=== PATIENT | female | born 1970 | race Caucasian/White ===

== ENCOUNTER → 2016-05-28 | Outpatient (CLI) | payer OTHER ==
[~2016-05-28] VITALS: Ht 162.6 cm; Wt 86.2 kg
[~2016-05-28] MED LIST: AMLO10TA2 PO; ASPI81TA85 PO; BENI40TA3 PO; CHLO25TA PO; CYCL5TA PO; IMOD2TAB14 PO; LEXA1TAB PO; LIDOCAINE 2% INJ 100 MG/5 ML SDV (FOR ANES.) As Ordered ONE; METO-209 PO; NS 1,000 ML IV SCH; PROPOFOL 200 MG/20 ML VIAL As Ordered ONE; PROT1TAB2 PO; SUCR1TA PO; ZANTTAB PO
--- NOTE | 2016-05-28 10:34 | ROOR ---
Patient Name: Brittney Ross Procedure Date: 05/28/2016 10:20 AM Date of : 1970 Age: 45 Room: [facility] Gender: Female Note Status: Finalized Procedure: Upper GI endoscopy Indications: Heartburn, (Improved/Resolved with current management) Providers: Fran UGARTE MD Referring MD: SYLVESTER SHEPPARD MD Requesting Provider: Medicines: Monitored Anesthesia Care Complications: No immediate complications. Procedure: Pre-Anesthesia Assessment: - The heart rate, respiratory rate, oxygen saturations, blood pressure, adequacy of pulmonary ventilation, and response to care were monitored throughout the procedure. The Endoscope was introduced through the mouth, and advanced to the second part of duodenum. The upper GI endoscopy was accomplished without difficulty. The patient tolerated the procedure well. Findings: The esophagus was normal. The stomach was normal. The examined duodenum was normal. Impression: - Normal esophagus. - Normal stomach. - Normal examined duodenum. - No specimens collected. Recommendation: - Follow an antireflux regimen. Fran Ugarte MD Fran UGARTE MD 05/28/2016 10:34:04 AM This report has been signed electronically. Number of Addenda: 0 Note Initiated On: 05/28/2016 10:20 AM Estimated Blood Loss: Estimated blood loss: none.
--- NOTE | 2016-05-28 10:51 | ROOR ---
Patient Name: Brittney Ross Procedure Date: 05/28/2016 10:21 AM Date of : 1970 Age: 45 Room: [facility] Gender: Female Note Status: Finalized Procedure: Colonoscopy Indications: Clinically significant diarrhea of unexplained origin, Exclusion of colitis, Suspected irritable bowel syndrome, Generalized abdominal pain Providers: Fran UGARTE MD Referring MD: SYLVESTER SHEPPARD MD Requesting Provider: Medicines: Monitored Anesthesia Care Complications: No immediate complications. Procedure: Pre-Anesthesia Assessment: - The heart rate, respiratory rate, oxygen saturations, blood pressure, adequacy of pulmonary ventilation, and response to care were monitored throughout the procedure. The Colonoscope was introduced through the anus and advanced to 8 cm into the ileum. The colonoscopy was performed without difficulty. The patient tolerated the procedure well. The quality of the bowel preparation was good. Findings: The perianal and digital rectal examinations were normal. (Exam: Complete, Prep: Good or Excellent.) Multiple medium-mouthed diverticula were found in the sigmoid colon. Internal hemorrhoids were found during retroflexion. The hemorrhoids were small. The exam was otherwise normal throughout the examined colon. The terminal ileum appeared normal. Biopsies for histology were taken with a cold forceps from the entire colon for evaluation of microscopic colitis. Fluid aspiration for C difficile stool testing was performed. Impression: - (Exam: Complete, Prep: Good or Excellent.) - Mild diverticulosis in the sigmoid colon. - Internal hemorrhoids. - The examined portion of the ileum was normal. - Biopsies were taken with a cold forceps from the entire colon for evaluation of microscopic colitis. - Fluid aspiration was performed. - (Irritable Bowel Syndrome/IBS suspected.) Recommendation: - Telephone endoscopist for study results in 2 weeks. - Use Bentyl (dicyclomine) 20 mg PO Q 4-6 hrs PRN 30 min AC. - (the script was sent to your pharmacy on file) Fran Ugarte MD Fran UGARTE MD 05/28/2016 10:51:19 AM This report has been signed electronically. Number of Addenda: 0 Note Initiated On: 05/28/2016 10:21 AM Estimated Blood Loss: Estimated blood loss: none.
[2016-05-28 11:15] VITALS: BP 135/96
== END ==
LOC: M OPP 09:19
PROVIDERS: ATTEND Internal Medicine Gastroenterology
DX: R19.7 Diarrhea, unspecified (principal); K57.30 Diverticulosis of large intestine without perforation or abscess without bleeding; K64.0 First degree hemorrhoids; R12 Heartburn; R63.4 Abnormal weight loss; R10.84 Generalized abdominal pain; K62.5 Hemorrhage of anus and rectum; I10 Essential (primary) hypertension; G47.30 Sleep apnea, unspecified; K21.9 Gastro-esophageal reflux disease without esophagitis; F41.9 Anxiety disorder, unspecified; F32.9 Major depressive disorder, single episode, unspecified; K25.9 Gastric ulcer, unspecified as acute or chronic, without hemorrhage or perforation; M15.9 Polyosteoarthritis, unspecified; Z79.82 Long term (current) use of aspirin; Z91.040 Latex allergy status; Z79.899 Other long term (current) drug therapy

== ENCOUNTER → 2016-12-16 | Outpatient (CLI) | payer OTHER ==
[~2016-12-16] MED LIST changes: +BENI40TA26 PO; -BENI40TA3 PO; -CYCL5TA PO; +CYCL5TAB PO; -IMOD2TAB14 PO; +IMOD2TAB16 PO; -LIDOCAINE 2% INJ 100 MG/5 ML SDV (FOR ANES.) As Ordered ONE; -METO-209 PO; +METO1TAB33 PO; -NS 1,000 ML IV SCH; -PROPOFOL 200 MG/20 ML VIAL As Ordered ONE
--- NOTE | 2016-12-16 16:07 | REP ---
WHOLE BODY BONE SCAN: Following the intravenous administration of 22 mCi of technetium 99m MDP the patient's whole body is imaged in the anterior and posterior projections. Additional oblique images of the thoracic and pelvic regions performed as well as lateral views of the calvarium and knees. I see no scintigraphic evidence of occult fracture. Arthritic uptake is seen in the shoulders, sternoclavicular joints, and left knee. Renal and bladder activity are seen. IMPRESSION: Arthritic uptake as above with no evidence of occult fracture or compelling scintigraphic evidence of osseous metastases. Signed by Tony Urbina MD 12/16/2016 05:58 P
== END ==
LOC: M RAD 10:41
PROVIDERS: ATTEND Internal Medicine Cardiovascular Disease
DX: M17.12 Unilateral primary osteoarthritis, left knee (principal); M19.011 Primary osteoarthritis, right shoulder; M19.012 Primary osteoarthritis, left shoulder; R07.89 Other chest pain

== ENCOUNTER → 2017-10-05 | Outpatient (CLI) | payer OTHER | LOC: M RAD 11:40 | DX: M79.661 Pain in right lower leg (principal) | CPT/HCPCS: 73718 ==

== ENCOUNTER 2017-12-18 15:40 | Emergency (ER) | payer OTHER ==
[2017-12-18] MEDS: ACETAMINOPH W/CODEINE #3 TAB UD PO (17:06)
[2017-12-18 17:25] LABS: BASO # 0.1 10^3/uL (0.0-0.2); BASO % 0.7 % (0.0-1.0); EOS # 0.4 10^3/uL (0.0-0.50); EOS % 4.2 % (0.0-3.0); HEMATOCRIT 43.2 % (36.0-47.0); HEMOGLOBIN 14.6 g/dl (12.0-15.5); IMMATURE GRANULOCYTE % 0.2 % (0-3.0); MEAN CORPUSCULAR HEMOGLOBIN 31.9 pg (27.0-33.0); MEAN CORPUSCULAR HGB CONC 33.8 g/dl (32.0-36.5); MEAN CORPUSCULAR VOLUME 94.3 fl (80.0-96.0); MONO # 0.7 10^3/uL (0.0-0.8); MONO % 7.7 % (0.0-5.0); NEUTROPHILS # 6.2 10^3/uL (1.8-7.7); NEUTROPHILS % 66.2 % (36.0-66.0); PLATELET COUNT, AUTOMATED 206 10^3/uL (150-450); RED BLOOD COUNT 4.58 10^6/uL (4.00-5.40); RED CELL DISTRIBUTION WIDTH 12.8 % (11.5-14.5); WHITE BLOOD COUNT 9.4 10^3/uL (4.0-10.0)
[2017-12-18 17:39] LABS: PROTHROMBIN TIME 13.3 SECONDS (12.1-14.4)
[2017-12-18 17:40] LABS: PARTIAL THROMBOPLASTIN TIME 26.6 SECONDS (25.4-37.6)
== END 2017-12-18 18:12 | disposition home or self-care (01) ==
LOC: M ED 15:40
DX: S43.101A Unspecified dislocation of right acromioclavicular joint, initial encounter (principal); X58.XXXA Exposure to other specified factors, initial encounter; Y92.89 Other specified places as the place of occurrence of the external cause; I10 Essential (primary) hypertension; F33.9 Major depressive disorder, recurrent, unspecified; Z79.899 Other long term (current) drug therapy; Z79.82 Long term (current) use of aspirin; Z91.040 Latex allergy status
CPT/HCPCS: 73030

== ENCOUNTER 2018-01-03 12:08 | Day surgery (SDC) | payer OTHER ==
[~2018-01-03 12:08] MED LIST changes: -AMLO10TA2 PO; -ASPI81TA85 PO; -BENI40TA26 PO; -CHLO25TA PO; -CYCL5TAB PO; -IMOD2TAB16 PO; -LEXA1TAB PO; +LR 1,000 ML IV; -METO1TAB33 PO; -PROT1TAB2 PO; -SUCR1TA PO; -ZANTTAB PO
[2018-01-03] MEDS ORDERED: dexameTHASONE 10 MG/1 ML VIAL PRES.FREE (J1100) (12:09)
[2018-01-03] MEDS ORDERED: EPINEPHrine INJ 1 MG/ML 1ML AMP (12:09)
[2018-01-03] MEDS ORDERED: ROPIvacaine 0.5% 30 ML INJECTION (J2795 PER 1MG) (12:09)
[2018-01-03 13:22] LABS: CONTROL LINE UCG INT CTR LINE PRESENT; URINE PREG TEST NEGATIVE (NEGATIVE)
[2018-01-03] MEDS ORDERED: SCOPOLAMINE 1MG TRANSDERMAL PATCH As Ordered (15:03)
[2018-01-03] MEDS: SCOPOLAMINE 1MG TRANSDERMAL PATCH TOP (15:06)
[2018-01-03] MEDS ORDERED: fentaNYL 100 MCG/2 ML INJECTION (J3010) As Ordered ×2 (15:14→15:42)
[2018-01-03] MEDS ORDERED: MIDAZOLAM INJ 2 MG/2 ML VIAL (J2250) As Ordered ×2 (15:14→15:42)
[2018-01-03] MEDS: MIDAZOLAM INJ 2 MG/2 ML VIAL (J2250) IV (15:16)
[2018-01-03] MEDS: fentaNYL 100 MCG/2 ML INJECTION (J3010) IV (15:16)
[2018-01-03] MEDS ORDERED: ROCURONIUM BROMIDE 50 MG/5 ML VIAL As Ordered (15:42)
[2018-01-03] MEDS ORDERED: PROPOFOL 200 MG/20 ML VIAL As Ordered (15:42)
[2018-01-03] MEDS ORDERED: LIDOCAINE 2% INJ 100 MG/5 ML SDV (FOR ANES.) As Ordered (15:42)
[2018-01-03] MEDS: ceFAZolin 1GM INJ (J0690 PER 500MG) As Ordered (16:29)
[2018-01-03] MEDS ORDERED: PHENYLephrine HCL 500 MCG/5 ML (100MCG/ML) SYRINGE (J2370) As Ordered ×2 (16:30→16:51)
[2018-01-03] MEDS ORDERED: dexameTHASONE 4 MG/ML 1ML VIAL (J1100) As Ordered (16:30)
[2018-01-03] MEDS ORDERED: ONDANSETRON 4MG/2ML VIAL (J2405) As Ordered ×2 (16:55→18:19)
[2018-01-03] MEDS ORDERED: GLYCOPYRROLATE INJ 0.2 MG/ML 2 ML VIAL As Ordered (16:55)
[2018-01-03] MEDS ORDERED: NEOSTIGMINE 10 MG/10 ML VIAL (J2710) As Ordered (16:55)
[2018-01-03] MEDS ORDERED: CALCIUM CHLORIDE 10% 1 GM/10 ML SYR As Ordered (17:22)
[2018-01-03] MEDS ORDERED: LABETALOL HCL 100 MG/20 ML VIAL As Ordered ×2 (17:46→18:30)
[2018-01-03] MEDS: ONDANSETRON 4MG/2ML VIAL (J2405) IV (18:20)
[2018-01-03] MEDS ORDERED: fentaNYL 100 MCG/2 ML INJECTION (J3010) IV (18:30)
[2018-01-03] MEDS ORDERED: MORPHINE 4 MG/ML 1ML VIAL/SYRINGE (J2270) IV (18:30)
[2018-01-03] MEDS ORDERED: PERCOCET 5MG/325MG TAB PO (18:30)
[2018-01-03] MEDS ORDERED: LR 1,000 ML IV (18:30)
[2018-01-03] MEDS ORDERED: NORCO, ANEXSIA 5/325MG TABLET (HYDROcodone/ACETAMINOPHEN) PO (18:30)
[2018-01-03] MEDS: LABETALOL HCL 100 MG/20 ML VIAL IV ×2 (18:38→18:48)
[2018-01-03] MEDS: LR 1,000 ML IV (21:00)
[2018-01-03] MEDS: NORCO, ANEXSIA 5/325MG TABLET (HYDROcodone/ACETAMINOPHEN) PO (21:21)
[2018-01-04] MEDS: ARIPiprazole 10 MG TAB PO ×2 (00:15→09:23)
[2018-01-04] MEDS: GABAPENTIN 300 MG CAP PO ×2 (00:15→09:24)
[2018-01-04] MEDS: amLODIPine 5 MG TAB PO ×2 (00:16→09:26)
[2018-01-04] MEDS: SPIRONOLACTONE 50 MG TAB PO ×2 (00:16→09:25)
[2018-01-04] MEDS: METHYLDOPA 250 MG TAB PO ×2 (00:16→09:24)
[2018-01-04] MEDS ORDERED: amLODIPine 5 MG TAB PO ×2 (00:30→09:00)
[2018-01-04] MEDS: LR 1,000 ML IV (05:35)
[2018-01-04] MEDS ORDERED: LABETALOL 200 MG TAB PO (09:00)
[2018-01-04] MEDS: METOPROLOL SUCC (TopROL XL) 100MG *XL* TAB PO (09:57)
[2018-01-04] MEDS: NORCO, ANEXSIA 5/325MG TABLET (HYDROcodone/ACETAMINOPHEN) PO (10:50)
== END 2018-01-04 11:55 | disposition home or self-care (01) ==
LOC: M SDC 12:08 → M PED 20:43
DX: S46.011A Strain of muscle(s) and tendon(s) of the rotator cuff of right shoulder, initial encounter (principal); W00.0XXA Fall on same level due to ice and snow, initial encounter; Y99.0 Civilian activity done for income or pay; I10 Essential (primary) hypertension; F41.9 Anxiety disorder, unspecified; F32.9 Major depressive disorder, single episode, unspecified; K57.32 Diverticulitis of large intestine without perforation or abscess without bleeding; K21.9 Gastro-esophageal reflux disease without esophagitis; M12.9 Arthropathy, unspecified; R06.83 Snoring; G47.33 Obstructive sleep apnea (adult) (pediatric); Z91.040 Latex allergy status; Z79.899 Other long term (current) drug therapy; Z79.82 Long term (current) use of aspirin; Y93.89 Activity, other specified; Y92.89 Other specified places as the place of occurrence of the external cause
CPT/HCPCS: 23412

== ENCOUNTER → 2018-07-25 | Outpatient (REF) ==
[~2018-07-25] MED LIST changes: +ABIL10TA9 PO; +ALBU17IN2 INH; +AMLO10TA5 PO; +ARIP5TA PO; +ASPI81TA85 PO; +BENI40TA26 PO; +CHLO25TA PO; +CYCL5TAB PO; +GABA-845 PO; +HYDR12.55 PO; +IBUP-1022 PO; +IMOD2TAB16 PO; +KLOR1CAP2 PO; +LABE10TAB PO; +LEXA1TAB PO; -LR 1,000 ML IV; +METHY25TA PO; +METO1TAB33 PO; +OMEP40CA2 PO; +PROT1TAB2 PO; +SUCR1TA PO; +SYSTSOL14 OP; +TRAM50TA2 PO; +VALS1TAB48 PO; +VENTAER IN; +VITA250L PO; +VITA500C2 PO; +XANA0.5T PO; +ZANTTAB PO
--- NOTE | 2018-07-26 03:00 | REP ---
Clinical: Right shoulder pain . Technique: Internal rotation, external rotation, and Y view. Findings: No acute fracture or dislocation. Mild cortical irregularity at the acromioclavicular joint is appreciated. Glenohumeral joint appears intact and relatively normal. Subacromial space is normal. No periarticular calcifications or loose bodies are identified. Impression: Minimal degenerative changes at the acromioclavicular joint. Electronically Signed by Andi Dumont MD 07/26/2018 02:52 A
--- NOTE | 2018-07-26 03:32 | REP ---
Clinical: Pain and disability. Technique: AP, lateral, bilateral oblique and sunrise views of the left knee. Findings: Advanced tricompartmental osteoarthritic degenerative changes include subchondral sclerosis, joint space narrowing, osteophytosis, and medial subluxation. No acute fracture. Evidence of prior tibial tuberosity repair. Findings: Advanced tricompartmental osteoarthritic degenerative changes. Electronically Signed by Andi Dumont MD 07/26/2018 03:23 A
== END ==
LOC: M SMT 13:04
PROVIDERS: ATTEND Internal Medicine
DX: Z02.89 Encounter for other administrative examinations (principal)

== ENCOUNTER → 2018-09-18 | Outpatient (CLI) | payer OTHER ==
[~2018-09-18] MED LIST changes: +ARIP1TAB6 PO; -ARIP5TA PO; -VALS1TAB48 PO; +VALS1TAB68 PO
--- NOTE | 2018-10-03 01:59 | ECWPNPC ---
PATIENT NAME: ELISE KINGSTON : 1970 GENDER: FEMALE VISIT DATE: 09/18/2018 DISCHARGE DATE: 09/18/18 0851 VISIT LOCKED DATE TIME: PHYSICIAN: JOHANN JOHNSON MD RESOURCE: JOHANN JOHNSON MD REASON FOR APPOINTMENT 1. NON WC CHRONIC BACK PAIN HISTORY OF PRESENT ILLNESS PAIN SCREENING: PATIENT HAS A COMPLAINT OF ACUTE OR CHRONIC PAIN :YES 48 YEAR OLD FEMALE PATIENT WITH A HISTORY OF CHRONIC LOW BACK AND LEG PAIN. THE PATIENT DESCRIBES THE PAIN ACHING, SORE, BURNING, AND CONTINUOUS WITH A PAIN SCORE OF 7-10/10 DEPENDING ON PHYSICAL ACTIVITY. THE PATIENT SAYS SHE IS EXPERIENCING PAIN IN MULTIPLE AREAS OF HER BODY BUT MAINLY IN HER LOW BACK AND LEFT LEG. THE PATIENT SAYS SHE NEEDS TO USE A CANE TO HELP WALK BECAUSE OF THE PAIN. THE PATIENT STATES SHE IS TAKING TRAMADOL AND GABAPENTIN TO AID IN PAIN RELIEF. THE PATIENT SAYS SHE HAS DIFFICULTY SLEEPING DUE TO THIS PAIN. PATIENT DENIES UNEXPLAINABLE WEIGHT LOSS, FEVER, CHILLS, NEW CHANGES ON HER URINARY OR BOWEL CONTROL. FALL RISK SCREENING: SCREENING :NO FALLS REPORTED IN THE LAST YEAR CURRENT MEDICATIONS TAKING PRAZOSIN HCL 2 MG CAPSULE 1 CAPSULE AT BEDTIME ORALLY ONCE A DAY TAKING OMEPRAZOLE 40 MG CAPSULE DELAYED RELEASE 1 CAPSULE ORALLY ONCE A DAY TAKING ALPRAZOLAM 0.5 MG TABLET 1 TABLET ORALLY MDD2 TWICE A DAY TAKING ARIPIPRAZOLE 5 MG TABLET 1 TABLET ORALLY TWICE A DAY TAKING GABAPENTIN 300 MG CAPSULE 1 CAPSULE ORALLY TWICE A DAY TAKING BACLOFEN 10 MG TABLET 1 TABLET WITH FOOD OR MILK ORALLY TWICE A DAY NEEDED TAKING ASPIRIN 81 MG TABLET CHEWABLE 1 TABLET ORALLY ONCE A DAY TAKING TRAMADOL HCL 50 MG TABLET 1 TABLET NEEDED ORALLY EVERY 4-6 HRS TAKING VITAMIN C 500 MG CAPSULE 1 CAP ORALLY DAILY TAKING VENTOLIN HFA 108 (90 BASE) MCG/ACT AEROSOL SOLUTION 2 PUFFS NEEDED INHALATION EVERY 6 HRS TAKING VITAMIN B-12 500 MCG TABLET 1 TABLET ORALLY ONCE A DAY TAKING SYSTANE 0.4-0.3 % SOLUTION 1 DROP EACH EYE OPHTHALMIC DAILY NEEDED TAKING VALSARTAN 160 MG TABLET 1 TABLET ORALLY TWICE A DAY TAKING BUSPAR 10 MGS 1 TAB ORALLY TWICE DAILY TAKING HYDRALAZINE HCL 50 MG TABLET 1 TABLET WITH FOOD ORALLY THREE TIMES A DAY TAKING ABILIFY 5 MG TABLET 1 TABLET ORALLY ONCE A DAY TAKING RANITIDINE 150 MAX STRENGTH 150 MG TABLET 1 TABLET AT BEDTIME ORALLY TWICE DAILY TAKING HYDROCHLOROTHIAZIDE 12.5 MG CAPSULE 1 CAPSULE IN THE MORNING ORALLY ONCE A DAY TAKING LABETALOL HCL 200 MG TABLET 1 TABLET ORALLY TWICE A DAY TAKING LOTEMAX 0.5 % OINTMENT 1 APPLICATION OPHTHALMIC FOUR TIMES DAILY NEEDED TAKING NORVASC 5 MG TABLET 1 TABLET ORALLY BID TAKING ANT MAG ZINC +D3 - TABLET (NO VIT D) DIRECTED ORALLY DAILY TAKING XARELTO 15 MG TABLET 1 TABLET WITH FOOD ORALLY ONCE A DAY NOT-TAKING NAPROXEN 500 MG TABLET DELAYED RELEASE 1 TABLET ORALLY TWICE A DAY NOT-TAKING KLOR-CON 10 10 MEQ TABLET EXTENDED RELEASE 1 TABLET WITH FOOD ORALLY TWICE A DAY NOT-TAKING METOPROLOL SUCCINATE ER 100 MG TABLET EXTENDED RELEASE 24 HOUR 1 TABLET ORALLY ONCE A DAY MEDICATION LIST REVIEWED AND RECONCILED WITH THE PATIENT PAST MEDICAL HISTORY ANGINA IRREGULAR HEART BEAT 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 OLDEST [id number] PROBLEMS.YOUNGEST BROTHER FROM LOGGING ACCIDENT. SOCIAL HISTORY GENERAL: TOBACCO USE ARE YOU A:NONSMOKER EDUCATION LEVEL OF EDUCATION:HIGH SCHOOL DIET: REGULAR. LANGUAGE LANGUAGES SPOKEN:[place] DOMESTIC VIOLENCE DO YOU FEEL SAFE IN YOUR ENVIRONMENT?YES NEW PATIENT PAIN DIARY PATIENT DESCRIBES PAIN :ACHING, BURNING, HAVE IT ALL THE TIME, SHARP, STABBING, TENDER, SORE, SHOOTING FROM 0-10, WHAT LEVEL IS YOUR PAIN TODAY?10 RECREATIONAL DRUG USE DRUG USE?NO EXERCISE: NONE. LEARNING BARRIERS / SPECIAL NEEDS BARRIERS TO LEARNING?NO HEARING IMPAIRED?NO VISION IMPAIRED?YES :CORRECTIVE LENSES COGNITIVELY IMPAIRED?NO READINESS TO LEARN?YES LEARNING PREFERENCES?NO LEARNING CAPABILITIES PRESENT?YES EMOTIONAL BARRIERS?NO SPECIAL DEVICES?YES :CANE SHADE BANDER NEEDED?NO PAIN CLINIC PFS, CLERGY, PUBLIC HEALTH REFERRALS PFS REFERRAL NEEDED?NO CLERGY REFERRAL NEEDED?NO PUBLIC HEALTH REFERRAL NEEDED?NO WAS THE PROVIDER NOTIFIED OF ANY PERTINENT INFO? N/A HAS THE PATIENT BEEN EDUCATED REGARDING HIS/HER PLAN OF CARE?YES HAS THE PATIENT BEEN EDUCATED REGARDING PAIN, THE RISK FOR PAIN, THE IMPORTANCE OF EFFECTIVE PAIN MANAGEMENT, AND THE PAIN ASSESSMENT PROCESS?YES LATEX QUESTIONNAIRE LATEX ALLERGY : HAVE YOU EVER DEVELOPED ANY TYPE OF REACTION AFTER HANDLING LATEX PRODUCTS SUCH RUBBER GLOVES, CONDOMS, DIAPHRAGMS, BALLOONS, SOCKS, OR UNDERWEAR?YES - PLEASE INDICATE :RUBBER GLOVES, OTHER (DOCUMENT IN NOTES) LATEX ALLERGY LATEX ALLERGY : HAVE YOU EVER DEVELOPED ANY TYPE OF REACTION DURING OR AFTER DENTAL APPOINTMENT, VAGINAL/RECTAL EXAMINATION, SURGICAL PROCEDURE, OR ANY OTHER EXPOSURE?NO LATEX RISK : HAVE YOU EVER HAD ANY DIFFICULTY BREATHING OR HIVES AFTER EATING OR HANDLING ANY FRUITS, OR VEGETABLES; SUCH KIWI, BANANAS, STONE FRUITS, OR CHESTNUTSNO LATEX RISK : DO YOU HAVE A PREVIOUS PERSONAL HISTORY OF MORE THAN NINE SURGERIES, SPINA BIFIDA, OR REPEATED CATHERTIZATIONS? 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 ALCOHOL SCREENING DID YOU HAVE A DRINK CONTAINING ALCOHOL IN THE PAST YEAR?YES HOW OFTEN DID YOU HAVE A DRINK CONTAINING ALCOHOL IN THE PAST YEAR?MONTHLY OR LESS (1 POINT) HOW MANY DRINKS DID YOU HAVE ON A TYPICAL DAY WHEN YOU WERE DRINKING IN THE PAST YEAR?3 OR 4 (1 POINT) HOW OFTEN DID YOU HAVE SIX OR MORE DRINKS ON ONE OCCASION IN THE PAST YEAR?NEVER (0 POINTS) POINTS2 INTERPRETATIONNEGATIVE OCCUPATION: DISABLED. HOSPITALIZATION/MAJOR DIAGNOSTIC PROCEDURE SHOULDER SURGERY 08/2017,12/2017 PULMONARY EMBOLISM 02/2019 CHILDBIRTH REVIEW OF SYSTEMS REVIEWED BY: PROVIDER: JOHANN JOHNSON MD . CONSTITUTIONAL: ANY CHANGE IN YOUR MEDICAL CONDITION? NO . CHILLS NO . FEVER NO . INFECTION: DO YOU HAVE NEW INFECTIONS? NO . DO YOU HAVE HISTORY OF MRSA? NO . MUSCULOSKELETAL: ANY NEW PATTERNS OF PAIN OR NUMBNESS? YES, PAIN HAS INCREASED IN BACK, LEFT LEG FROM KNEE DOWN-HAS BEEN GETTING PROGRESSIVELY WORSE OVER THE PAST 4 MONTHS . SYTEMIC LUPUS NO . GASTROENTEROLOGY: ANY NEW CHANGE IN BOWEL CONTROL? NO . BARRETTS ESOPHAGUS NO . CIRRHOSIS NO . HEPATITIS NO . LIVER FAILURE NO . ACID REFLUX YES . UNEXPLAINED WEIGHT LOSS NO . GENITOURINARY: ANY NEW CHANGE IN BLADDER CONTROL? NO . IS THERE A CHANCE YOU COULD BE ? NO . HEMATOLOGY/LYMPH: DO YOU TAKE ANY BLOOD THINNERS? (FOR EXAMPLE- COUMADIN, PLAVIX, AGGRENOX, PLATEL, PRADAXA, OR XARELTO) YES, XARELTO . WHEN WAS YOUR LAST DOSE? DATE: TIME:09/18/18 1000 . LOW PLATELET COUNT NO . SICKLE CELL DISEASE NO . VON WILLIEBRANDS NO . FACTOR V LEIDEN NO . THALLASEMIA NO . ANEMIA YES, YEARS AGO . EASY BRUISING NO . NEUROLOGY: HAVE YOU FALLEN IN THE PAST 12 MONTHS? YES, STATES SHE FALLS OFTEN. STATES SHE LOSES HER BALANCE. NO INJURY IN THE PAST YEAR. . ANY NEW EXTREMITY NUMBNESS OR WEAKNESS? YES, LEFT TOES AND FOOT ARE NUMB AND ENTIRE LEG IS WEAK . HEAD INJURY NO . DEMENTIA NO . CEREBRAL PALSY NO . MULTIPLE SCLEROSIS NO . DIZZINESS INTERMITTENT . HEADACHE OCCASSIONAL MIGRAINES ON LEFT SIDE . STROKES NO . VERTIGO NO . CARDIOLOGY: DO YOU HAVE A PACEMAKER OR DEFIBRILLATOR? NO . ANGINA YES . HEART ATTACK NO . HEART SURGERY NO . CONGESTIVE HEART FAILURE/FLUID OVERLOAD NO . CHEST PAIN "ONCE IN A GREAT WHILE" . HIGH BLOOD PRESSURE ON MEDICATION(S) . IRREGULAR HEART BEAT POUNDING IN CHEST, AT REST, SKIPPED HEART BEAT, FEELS HEART RACINGOCCASIONALLY, WITH EXERTION HX OF PULMONARY EMBOLISM . RESPIRATORY: HAVE YOU BEEN SICK IN THE PAST WEEK? NO . FEVER NO . FLU LIKE SYMPTOMS? NO . CPAP NO . BYPAP NO . ASTHMA YES . EMPHYSEMA NO . CHRONIC LUNG DISEASES NO . SHORTNESS OF BREATH ON EXERTION YES . COUGH NO . SNORING YES HAS DAKOTAH BUT CAN NOT TOLERATE CPAP . INTEGUMENTARY: DO YOU HAVE ANY RASHES OR OPEN SORES? NO . ALLERGIC/IMMUNO: ARE YOU ALLERGIC TO IV DYE? NO . ANY NEW ALLERGIES? NO . PSYCHIATRIC: DO YOU HAVE THOUGHTS OF HURTING YOURSELF OR SOMEONE ELSE? NO . ARE YOU ABUSED, NEGLECTED, OR IN AN UNSAFE ENVIRONMENT? NO . ENDOCRINOLOGY: ARE YOU DIABETIC? NO . THYROID DISORDER NO . OTHER: DO YOU NEED ANY PRESCRIPTIONS? NO . IF YES, PLEASE LIST: ____ . ANY NEW PROBLEMS WITH YOUR MEDICATIONS? NO . WHEN DID YOU LAST EAT? ____ . WHEN DID YOU LAST DRINK? ____ . WHAT DID YOU LAST DRINK? ____ . NAME OF PERSON DRIVING YOU HOME? ____ . DO YOU HAVE ANY OTHER QUESTIONS OR CONCERNS YES, NEEDS SOMETHING THAT HELPS HER PAIN. "ALWAYS IN PAIN, WILL IT GET BETTER." . VITAL SIGNS WT 209.4 LBS, HT 64 IN, BMI 35.94 INDEX, BP 193/124 MM HG, REPEAT BP 190/130(R) 200/134(L)MANUAL BOTH, HR 83 /MIN, RR 18 /MIN, TEMP 97.2 F, OXYGEN SAT % 97%, NA INITIALS SC 1603, REVIEWED BY: ADRN IS AWARE OF PT'S BP AND WILL DO A MANUAL.DR. JOHNSON AWARE OF ELEVATED B/P. PT. ADVISED TO F/U WITH DR. ENRIQUE. EXAMINATION GENERAL EXAMINATION: PATIENT IS ALERT O X 3 AND COOPERATIVE. LUNGS CLEAR, TO AUSCULTATION. HEART: NO MURMURS OR GALLOPS; FACIAL CRANIAL NERVES ARE GROSSLY NORMAL. GOOD SYMMETRY OF FACIAL MUSCLE MOVEMENT. NORMAL VISUAL BROWN. ANTALGIC GAIT. PATIENT IS LIMPING FROM HER LEFT LEG. LEFT LEG IS WEAKER AT EXTENSION AND FLEXION. SEVERE TENDERNESS IN LOW BACK AREA. PRESENCE OF BANDS OF TISSUE AND TRIGGER POINTS WITH RESTRICTION OF MOVEMENT OF THE LOW BACK. CT SCAN OF THE LUMBAR SPINE DONE ON 04/26/2018 SHOWS DEGENERATIVE DISC DISEASE, BULGING DISCS, AND FACET ARTHROPATHY CHANGES. ASSESSMENTS INTERVERTEBRAL DISC DISORDER WITH RADICULOPATHY OF LUMBAR REGION - M51.16 (PRIMARY) TREATMENT INTERVERTEBRAL DISC DISORDER WITH RADICULOPATHY OF LUMBAR REGION CLINICAL NOTES: WE DISCUSSED SEVERAL ISSUES WITH MS. KINGSTON'S PAIN MANAGEMENT CASE. I BELIEVE THE PATIENT WILL BENEFIT FROM A LUMBAR EPIDURAL STEROID INJECTION, BUT BEFORE WE CAN MOVE FORWARD WITH THE EPIDURAL, I WILL NEED A CLEARANCE FROM THE PRIMARY CARE PHYSICIAN FOR THE PATIENT TO STOP XARELTO. IF CLEARANCE CANNOT BE OBTAINED, THE PATIENT WILL CONSIDER TRIGGER POINT INJECTIONS. I WOULD ALSO LIKE TO GET A COPY OF THE PATIENT'S LUMBAR MRI DONE AT [facility]. I WILL INCREASE THE PATIENT'S GABAPENTIN TO 3 TABLETS PER DAY. I WOULD ALSO LIKE TO DISCUSS WITH THE PATIENT'S PRIMARY CARE PHYSICIAN ABOUT THE PATIENT'S HIGH BLOOD PRESSURE THAT WAS RECORDED TODAY. THE PATIENT SAID SHE TAKES XANAX AND DENIES ANY VISION TROUBLE, DIZZINESS, AND SEVERE HEADACHES. THE PATIENT WAS ADVISED IF SHE EXPERIENCES ANY OF THESE SYMPTOMS TO GO TO THE EMERGENCY ROOM TO RECEIVE CARE. THE PATIENT WILL FOLLOW UP IN THE NEXT FEW WEEKS. INSTRUCTIONS WERE GIVEN, QUESTIONS WERE ANSWERED, PATIENT REPORTS UNDERSTANDING AND AGREES WITH THE PLAN. I, MITALI DAY, DOCUMENTED THE ABOVE INFORMATION ACTING A SCRIBE FOR DR. JOHNSON. I HAVE REVIEWED THE ABOVE DOCUMENT, WRITTEN BY MITALI ABARCA AND I VERIFY THAT IT IS ACCURATE. DEAR DR. KARISHMA ENRIQUE: THANK YOU FOR YOUR KIND REFERRAL OF ELISE KINGSTON. IF YOU WANT TO DISCUSS HER CASE WITH ME PLEASE CALL ME AT THE PAIN CENTER AT [phone]. SINCERELY, JOHANN JOHNSON MD PAIN MEDICINE . OTHERS REFILL GABAPENTIN CAPSULE, 300 MG, 1 CAPSULE, ORALLY FOR PAIN, THREE TIMES A DAY, 30 DAYS, 90 CAPSULE, REFILLS 1 PROCEDURE CODES FA211 ESTABILISHED PATIENT [facility] FACILITY CHARGE G8427 CURRENT MEDS W/DOSAGES DOCUMENTED G8730 PAIN ASSESS POS TOOL F/U PLAN DOC DISPOSITION & COMMUNICATION FOLLOW UP 3 WEEKS ELECTRONICALLY SIGNED BY JOHANN JOHNSON MD, MD ON 10/02/2018 AT 04:57 PM EDT DISCLAIMER : THIS IS A VISIT SUMMARY EXTRACTED FROM THE [employer] CHART. IT IS NOT A COPY OF THE [employer] PROGRESS NOTE. MTDD
== END ==
LOC: M PAIN 16:15
PROVIDERS: ATTEND Anesthesiology
DX: M51.16 Intervertebral disc disorders with radiculopathy, lumbar region (principal); G89.29 Other chronic pain; I10 Essential (primary) hypertension; G47.33 Obstructive sleep apnea (adult) (pediatric); J45.909 Unspecified asthma, uncomplicated; M19.90 Unspecified osteoarthritis, unspecified site; K21.9 Gastro-esophageal reflux disease without esophagitis; G43.909 Migraine, unspecified, not intractable, without status migrainosus; I20.9 Angina pectoris, unspecified; Z79.01 Long term (current) use of anticoagulants; Z79.82 Long term (current) use of aspirin; Z79.899 Other long term (current) drug therapy; Z91.040 Latex allergy status; Z86.79 Personal history of other diseases of the circulatory system; Z86.711 Personal history of pulmonary embolism

== ENCOUNTER → 2018-12-01 | Outpatient (CLI) | payer OTHER ==
[~2018-12-01] MED LIST changes: +ZANT150T40 PO; -ZANTTAB PO
--- NOTE | 2018-12-07 00:36 | ECWPNPC ---
PATIENT NAME: ELISE KINGSTON : 1970 GENDER: FEMALE VISIT DATE: 12/01/2018 DISCHARGE DATE: 12/01/18 1107 VISIT LOCKED DATE TIME: PHYSICIAN: LICHA ARENAS RESOURCE: LICHA ARENAS REASON FOR APPOINTMENT 1. NON WC CHRONIC BACK PAIN HISTORY OF PRESENT ILLNESS HISTORY OF PRESENT ILLNESS: 48 YEAR OLD FEMALE IN FOR CHRONIC LOW BACK AND LEFT LEG PAIN. SHE RATES HER PAIN AT A 10/10. SHE DOES ADMIT THAT SHE FELT THE INCREASE IN GABAPENTIN WAS HELPFUL. DR. JOHNSON DID DISCUSS PROCEDURES WITH HER AT LAST VISIT BUT HAD STATED AT THAT TIME HER PCP WOULD HAVE TO AGREE TO D/C HER XARELTO. SINCE LAST APPT PATIENT HAD D/C'D USE OF XARELTO. SHE DESCRIBES THE PAIN ACHING, BURNING, SORE, TENDER, SHARP, STABBING, AND SHOOTING. PAIN THE PATIENT DESCRIBES THE PAIN... FALL RISK SCREENING: SCREENING :NO FALLS REPORTED IN THE LAST YEAR CURRENT MEDICATIONS TAKING PRAZOSIN HCL 2 MG CAPSULE 1 CAPSULE AT BEDTIME ORALLY ONCE A DAY TAKING OMEPRAZOLE 40 MG CAPSULE DELAYED RELEASE 1 CAPSULE ORALLY ONCE A DAY TAKING ALPRAZOLAM 0.5 MG TABLET 1 TABLET ORALLY MDD2 TWICE A DAY TAKING BACLOFEN 10 MG TABLET 1 TABLET WITH FOOD OR MILK ORALLY TWICE A DAY NEEDED TAKING ASPIRIN 81 MG TABLET CHEWABLE 1 TABLET ORALLY ONCE A DAY TAKING TRAMADOL HCL 50 MG TABLET 1 TABLET NEEDED ORALLY EVERY 4-6 HRS TAKING VITAMIN C 500 MG CAPSULE 1 CAP ORALLY DAILY TAKING VENTOLIN HFA 108 (90 BASE) MCG/ACT AEROSOL SOLUTION 2 PUFFS NEEDED INHALATION EVERY 6 HRS TAKING VITAMIN B-12 500 MCG TABLET 1 TABLET ORALLY ONCE A DAY TAKING SYSTANE 0.4-0.3 % SOLUTION 1 DROP EACH EYE OPHTHALMIC DAILY NEEDED TAKING VALSARTAN 160 MG TABLET 1 TABLET ORALLY TWICE A DAY TAKING BUSPAR 10 MGS 1 TAB ORALLY TWICE DAILY TAKING HYDRALAZINE HCL 50 MG TABLET 1 TABLET WITH FOOD ORALLY THREE TIMES A DAY TAKING ABILIFY 5 MG TABLET 1 TABLET ORALLY ONCE A DAY TAKING RANITIDINE 150 MAX STRENGTH 150 MG TABLET 1 TAB ORALLY TWICE DAILY TAKING HYDROCHLOROTHIAZIDE 12.5 MG CAPSULE 1 CAPSULE IN THE MORNING ORALLY ONCE A DAY TAKING LABETALOL HCL 200 MG TABLET 1 TABLET ORALLY TWICE A DAY TAKING LOTEMAX 0.5 % OINTMENT 1 APPLICATION OPHTHALMIC FOUR TIMES DAILY NEEDED TAKING ANT MAG ZINC +D3 - TABLET (NO VIT D) DIRECTED ORALLY DAILY TAKING GABAPENTIN 300 MG CAPSULE 1 CAPSULE ORALLY FOR PAIN THREE TIMES A DAY NOT-TAKING XARELTO 15 MG TABLET 1 TABLET WITH FOOD ORALLY ONCE A DAY NOT-TAKING ARIPIPRAZOLE 5 MG TABLET 1 TABLET ORALLY TWICE A DAY NOT-TAKING NORVASC 5 MG TABLET 1 TABLET ORALLY BID NOT-TAKING NAPROXEN 500 MG TABLET DELAYED RELEASE 1 TABLET ORALLY TWICE A DAY NOT-TAKING KLOR-CON 10 10 MEQ TABLET EXTENDED RELEASE 1 TABLET WITH FOOD ORALLY TWICE A DAY NOT-TAKING METOPROLOL SUCCINATE ER 100 MG TABLET EXTENDED RELEASE 24 HOUR 1 TABLET ORALLY ONCE A DAY MEDICATION LIST REVIEWED AND RECONCILED WITH THE PATIENT PAST MEDICAL HISTORY ANGINA IRREGULAR HEART BEAT PULMONARY 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 HYPERTENSION DAKOTAH-UNABLE TO TOLERATE CPAP ASTHMA BACK AND LEFT LEG PAIN ARTHRITIS GERD SEVERE NOSE BLEED ALLERGIES LATEX (FOR ALLERGY USE ONLY): DIFFICULTY BREATHING, ITCHING - ALLERGY ENVIRONMENTAL: SINUS CONGESTION, COUGH - ALLERGY SURGICAL HISTORY RIGHT ROTATOR CUFF REPAIR 08/2017, 12/2017 ARTHROSCOPY BILARTERAL KNEES SCREWS LEFT KNEE 2007 CHOLECYSTECTOMY 2009 TEAR DUCT OPENED A BABY LEFT CARPAL TUNNEL REPAIR 2007 TONSILLECTOMY AGE 12 D&C X 4 FAMILY HISTORY FATHER: NO KNOWN HISTORY ON FATHER MOTHER: ALIVE, DIAGNOSED WITH HYPERTENSION SIBLINGS: 1DAUGHTER(S) - HEALTHY. OLDEST [id number] PROBLEMS.YOUNGEST BROTHER FROM LOGGING ACCIDENT. SOCIAL HISTORY GENERAL: TOBACCO USE ARE YOU A:NONSMOKER EDUCATION LEVEL OF EDUCATION:HIGH SCHOOL DIET: REGULAR. LANGUAGE LANGUAGES SPOKEN:THAI DOMESTIC VIOLENCE DO YOU FEEL SAFE IN YOUR ENVIRONMENT?YES NEW PATIENT PAIN DIARY PATIENT DESCRIBES PAIN : ACHING, BURNING, HAVE IT ALL THE TIME, SHARP, STABBING, TENDER, SORE, SHOOTING, FROM 0-10, WHAT LEVEL IS YOUR PAIN TODAY? 10. RECREATIONAL DRUG USE DRUG USE?NO EXERCISE: NONE. LEARNING BARRIERS / SPECIAL NEEDS BARRIERS TO LEARNING?NO HEARING IMPAIRED?NO VISION IMPAIRED?YES :CORRECTIVE LENSES COGNITIVELY IMPAIRED?NO READINESS TO LEARN?YES LEARNING PREFERENCES?NO LEARNING CAPABILITIES PRESENT?YES EMOTIONAL BARRIERS?NO SPECIAL DEVICES?YES :CANE MANAGER LINE NEEDED?NO PAIN CLINIC PFS, CLERGY, PUBLIC HEALTH REFERRALS PFS REFERRAL NEEDED?NO CLERGY REFERRAL NEEDED?NO PUBLIC HEALTH REFERRAL NEEDED?NO WAS THE PROVIDER NOTIFIED OF ANY PERTINENT INFO? N/A HAS THE PATIENT BEEN EDUCATED REGARDING HIS/HER PLAN OF CARE?YES HAS THE PATIENT BEEN EDUCATED REGARDING PAIN, THE RISK FOR PAIN, THE IMPORTANCE OF EFFECTIVE PAIN MANAGEMENT, AND THE PAIN ASSESSMENT PROCESS?YES LATEX QUESTIONNAIRE LATEX ALLERGY : HAVE YOU EVER DEVELOPED ANY TYPE OF REACTION AFTER HANDLING LATEX PRODUCTS SUCH RUBBER GLOVES, CONDOMS, DIAPHRAGMS, BALLOONS, SOCKS, OR UNDERWEAR?YES - PLEASE INDICATE :RUBBER GLOVES, OTHER (DOCUMENT IN NOTES) LATEX ALLERGY LATEX ALLERGY : HAVE YOU EVER DEVELOPED ANY TYPE OF REACTION DURING OR AFTER DENTAL APPOINTMENT, VAGINAL/RECTAL EXAMINATION, SURGICAL PROCEDURE, OR ANY OTHER EXPOSURE?NO LATEX RISK : HAVE YOU EVER HAD ANY DIFFICULTY BREATHING OR HIVES AFTER EATING OR HANDLING ANY FRUITS, OR VEGETABLES; SUCH KIWI, BANANAS, STONE FRUITS, OR CHESTNUTSNO LATEX RISK : DO YOU HAVE A PREVIOUS PERSONAL HISTORY OF MORE THAN NINE SURGERIES, SPINA BIFIDA, OR REPEATED CATHERTIZATIONS? YES - PLEASE INDICATE : > 9 SURGERIES LATEX RISK : ARE YOU FREQUENTLY EXPOSED TO LATEX PRODUCTS IN YOUR OCCUPATION?NO DATE ASKED : 12/01/2018 ADVANCE DIRECTIVE ADVANCE DIRECTIVE DISCUSSED WITH PATIENT:YES 12/01/18 [id number] ALittle KINGSTON [phone] ADVENT[facility] [id number] MOSQUE MARITAL STATUS: SINGLE. ALCOHOL SCREENING DID YOU HAVE A DRINK CONTAINING ALCOHOL IN THE PAST YEAR?YES HOW OFTEN DID YOU HAVE SIX OR MORE DRINKS ON ONE OCCASION IN THE PAST YEAR?NEVER (0 POINTS) HOW MANY DRINKS DID YOU HAVE ON A TYPICAL DAY WHEN YOU WERE DRINKING IN THE PAST YEAR?3 OR 4 (1 POINT) HOW OFTEN DID YOU HAVE A DRINK CONTAINING ALCOHOL IN THE PAST YEAR?MONTHLY OR LESS (1 POINT) POINTS2 INTERPRETATIONNEGATIVE OCCUPATION: DISABLED. HOSPITALIZATION/MAJOR DIAGNOSTIC PROCEDURE SHOULDER SURGERY 08/2017,12/2017 PULMONARY EMBOLISM 02/2019 CHILDBIRTH SEVERE NOSE BLEED 10/13- REVIEW OF SYSTEMS REVIEWED BY: PROVIDER: LYNN KAUR . CONSTITUTIONAL: ANY CHANGE IN YOUR MEDICAL CONDITION? YES,WAS HOSPITALIZED FOR 4 DAYS OVER MEMORIAL DAY DUE TO SEVER NOSE BLEED . CHILLS NO . FEVER NO . INFECTION: DO YOU HAVE NEW INFECTIONS? NO . DO YOU HAVE HISTORY OF MRSA? NO . MUSCULOSKELETAL: ANY NEW PATTERNS OF PAIN OR NUMBNESS? YES, PAIN IN LOW BACK AND LEFT LOWER CALF HAS BEEN WORSE SINCE HER LAST VISIT . GASTROENTEROLOGY: ANY NEW CHANGE IN BOWEL CONTROL? NO . GENITOURINARY: ANY NEW CHANGE IN BLADDER CONTROL? NO . IS THERE A CHANCE YOU COULD BE ? NO . HEMATOLOGY/LYMPH: DO YOU TAKE ANY BLOOD THINNERS? (FOR EXAMPLE- COUMADIN, PLAVIX, AGGRENOX, PLATEL, PRADAXA, OR XARELTO) NO . WHEN WAS YOUR LAST DOSE? DATE: TIME: . NEUROLOGY: HAVE YOU FALLEN IN THE PAST 12 MONTHS? NO . ANY NEW EXTREMITY NUMBNESS OR WEAKNESS? YES, LEFT LEG VERY WEAK, LOSES HER BALANCE OFTEN . CARDIOLOGY: DO YOU HAVE A PACEMAKER OR DEFIBRILLATOR? NO . RESPIRATORY: HAVE YOU BEEN SICK IN THE PAST WEEK? NO . FEVER NO . FLU LIKE SYMPTOMS? NO . COUGH YES, NON-PRODUCTIVE, STATES IT'S DUE TO HER ALLERGIES . INTEGUMENTARY: DO YOU HAVE ANY RASHES OR OPEN SORES? NO . ALLERGIC/IMMUNO: ARE YOU ALLERGIC TO IV DYE? NO . ANY NEW ALLERGIES? NO . PSYCHIATRIC: DO YOU HAVE THOUGHTS OF HURTING YOURSELF OR SOMEONE ELSE? NO . ARE YOU ABUSED, NEGLECTED, OR IN AN UNSAFE ENVIRONMENT? NO . ENDOCRINOLOGY: ARE YOU DIABETIC? NO . OTHER: DO YOU NEED ANY PRESCRIPTIONS? YES . IF YES, PLEASE LIST: SOME THING FOR PAIN . ANY NEW PROBLEMS WITH YOUR MEDICATIONS? NO . WHEN DID YOU LAST EAT? ____ . WHEN DID YOU LAST DRINK? ____ . WHAT DID YOU LAST DRINK? ____ . NAME OF PERSON DRIVING YOU HOME? ____ . DO YOU HAVE ANY OTHER QUESTIONS OR CONCERNS NO . VITAL SIGNS WT 205.4 LBS, HT 64 IN, BMI 35.25 INDEX, BP 193/125 MM HG, REPEAT BP 174/124 MANUAL RIGHT, HR 88 /MIN, RR 16 /MIN, TEMP 97.8 F, OXYGEN SAT % 97, REVIEWED BY: MATT 37430/05/10 LICHA AWARE OF ELEVATED B/P PT. STATES SHE HAS NOT HAD B/P MED THIS A.M., PT ADVISED TO FOLLOW UP WITH PCP REGARDING ELEVATED B/P. SHE STATES IT IS ALWAYS ELEVATED WHEN SHE GOES TO THE DOC'S. EXAMINATION GENERAL EXAMINATION: GENERALNO ACUTE DISTRESS, WELL NOURISHED AND HYDRATED. PSYCHAPPROPRIATE MOOD AND AFFECT . LUNGS:CLEAR TO AUSCULTATION BILATERALLY, NO WHEEZES, RHONCHI, RALES. HEART:NO MURMURS, REGULAR RATE AND RHYTHM. BACK:POINT TENDER ALONG THORACIC SPINE, WITH A POSITIVE MODIFIED SLR ON THE LEFT SIDE.. MUSCULOSKELETAL:EQUAL STRENGTH BILATERAL LOWER EXTREMITIES.. ASSESSMENTS INTERVERTEBRAL DISC DISORDER WITH RADICULOPATHY OF LUMBAR REGION - M51.16 (PRIMARY) TREATMENT INTERVERTEBRAL DISC DISORDER WITH RADICULOPATHY OF LUMBAR REGION NOTES: LESI L1-L2, L2-L3. CLINICAL NOTES: 48 YEAR OLD FEMALE IN FOR CHRONIC PAIN FOLLOW UP. GIVEN PRESENTING SYMPTOMS AND RESULTS OF PHYSICAL EXAMINATION RECOMMENDED LESI L1-L2, L2-L3 AND INCREASING GABAPENTIN. PATIENT HAS EXPRESSED UNDERSTANDING OF AND WAS IN AGREEMENT WITH TX PLAN. GIVEN TIME TO ASK QUESTIONS AND EXPRESS CONCERNS. ENCOURAGED TO CALL SHOULD SHE HAVE ANY QUESTIONS.. OTHERS INCREASE GABAPENTIN CAPSULE, 300 MG, 1 TAB IN THE MORNING AND AFTERNOON AND 2 AT BEDTIME, ORALLY FOR PAIN, THREE TIMES A DAY, 30 DAYS, 120, REFILLS 1 PREVENTIVE MEDICINE PAIN CLINIC TEACHING: PROCEDURE TEACHING PRINTED INFORMATION ON LUMBAR EPIDURAL GIVEN TO AND REVIEWED WITH PT ALONG WITH PRINTED PRE-PROCEDURE INSTRUCTIONS AND PT. VERBALIZED UNDERSTANDING ON ALL. AD. PROCEDURE CODES FA211 ESTABILISHED PATIENT [facility] F[facility]ILITY CHARGE DISPOSITION & COMMUNICATION FOLLOW UP POST PROCEDURE (REASON: LESI L1-L2, L2-L3) ELECTRONICALLY SIGNED BY MIRACLE CAMARENA ON 12/06/2018 AT 03:21 PM EDT DISCLAIMER : THIS IS A VISIT SUMMARY EXTRACTED FROM THE [employer] CHART. IT IS NOT A COPY OF THE [employer] PROGRESS NOTE. KAILASHD
== END ==
LOC: M PAIN 09:45
PROVIDERS: ATTEND Family Medicine
DX: M51.16 Intervertebral disc disorders with radiculopathy, lumbar region (principal); I10 Essential (primary) hypertension; G47.33 Obstructive sleep apnea (adult) (pediatric); J45.909 Unspecified asthma, uncomplicated; K21.9 Gastro-esophageal reflux disease without esophagitis; I24.8 Other forms of acute ischemic heart disease; M79.662 Pain in left lower leg; Z86.711 Personal history of pulmonary embolism; Z90.49 Acquired absence of other specified parts of digestive tract; Z79.82 Long term (current) use of aspirin; Z79.891 Long term (current) use of opiate analgesic; Z79.899 Other long term (current) drug therapy; Z91.040 Latex allergy status

== ENCOUNTER → 2019-01-31 | Outpatient (CLI) | payer OTHER ==
[~2019-01-31] MED LIST changes: -ALBU17IN2 INH; +ISOVUE-M 300 61% 15ML VIAL (Q9967) As Ordered ONE; +LIDOCAINE 1% SDV INJ 30 ML VIAL As Ordered ONE; -OMEP40CA2 PO; +OMEP40CA97 PO; +PROV108A INH; +diazePAM 5 MG TAB As Ordered ONE; +methylPREDNISolone SUSP 40 MG/ML (DEPO-medrol) VIAL (J1030) As Ordered ONE; +oxyCODONE 5MG TAB As Ordered ONE
--- NOTE | 2019-02-01 07:47 | REP ---
C-ARM VIEWS, LUMBAR SPINE: Three C-arm views of lumbar spine performed. CLINICAL HISTORY: Pain. Injection performed by Dr. Rivas. Needle is seen at the L4-5 level and a small amount of contrast is injected. 5.7 seconds fluoroscopy time utilized. Electronically Signed by Tony Urbina MD 02/01/2019 10:45 A
--- NOTE | 2019-02-10 01:14 | ECWPNPC ---
PATIENT NAME: ELISE KINGSTON : 1970 GENDER: FEMALE VISIT DATE: 01/31/2019 DISCHARGE DATE: 01/31/19 1338 VISIT LOCKED DATE TIME: PHYSICIAN: JOHANN JOHNSON MD RESOURCE: JOHANN JOHNSON MD REASON FOR APPOINTMENT 1. LESI HISTORY OF PRESENT ILLNESS HISTORY OF PRESENT ILLNESS: PAIN THE PATIENT DESCRIBES THE PAIN... FALL RISK SCREENING: SCREENING :NO FALLS REPORTED IN THE LAST YEAR CURRENT MEDICATIONS TAKING PRAZOSIN HCL 2 MG CAPSULE 1 CAPSULE AT BEDTIME ORALLY ONCE A DAY TAKING OMEPRAZOLE 40 MG CAPSULE DELAYED RELEASE 1 CAPSULE ORALLY ONCE A DAY TAKING ALPRAZOLAM 0.5 MG TABLET 1 TABLET ORALLY MDD2 TWICE A DAY TAKING BACLOFEN 10 MG TABLET 1 TABLET WITH FOOD OR MILK ORALLY TWICE A DAY NEEDED TAKING ASPIRIN 81 MG TABLET CHEWABLE 1 TABLET ORALLY ONCE A DAY TAKING TRAMADOL HCL 50 MG TABLET 1 TABLET NEEDED ORALLY EVERY 4-6 HRS TAKING VITAMIN C 500 MG CAPSULE 1 CAP ORALLY DAILY TAKING VENTOLIN HFA 108 (90 BASE) MCG/ACT AEROSOL SOLUTION 2 PUFFS NEEDED INHALATION EVERY 6 HRS TAKING VITAMIN B-12 500 MCG TABLET 1 TABLET ORALLY ONCE A DAY TAKING SYSTANE 0.4-0.3 % SOLUTION 1 DROP EACH EYE OPHTHALMIC DAILY NEEDED TAKING VALSARTAN 160 MG TABLET 1 TABLET ORALLY TWICE A DAY TAKING BUSPAR 10 MGS 1 TAB ORALLY TWICE DAILY TAKING HYDRALAZINE HCL 50 MG TABLET 1 TABLET WITH FOOD ORALLY THREE TIMES A DAY TAKING ABILIFY 5 MG TABLET 1 TABLET ORALLY ONCE A DAY TAKING RANITIDINE 150 MAX STRENGTH 150 MG TABLET 1 TAB ORALLY TWICE DAILY TAKING HYDROCHLOROTHIAZIDE 12.5 MG CAPSULE 1 CAPSULE IN THE MORNING ORALLY ONCE A DAY TAKING LABETALOL HCL 200 MG TABLET 1 TABLET ORALLY TWICE A DAY TAKING LOTEMAX 0.5 % OINTMENT 1 APPLICATION OPHTHALMIC FOUR TIMES DAILY NEEDED TAKING ANT MAG ZINC +D3 - TABLET (NO VIT D) DIRECTED ORALLY DAILY TAKING GABAPENTIN 300 MG CAPSULE 1 TAB IN THE MORNING AND AFTERNOON AND 2 AT BEDTIME ORALLY FOR PAIN THREE TIMES A DAY TAKING ARIPIPRAZOLE 5 MG TABLET 1 TABLET ORALLY TWICE A DAY TAKING NORVASC 5 MG TABLET 1 TABLET ORALLY BID TAKING NAPROXEN 500 MG TABLET DELAYED RELEASE 1 TABLET ORALLY TWICE A DAY TAKING KLOR-CON 10 10 MEQ TABLET EXTENDED RELEASE 1 TABLET WITH FOOD ORALLY TWICE A DAY TAKING METOPROLOL SUCCINATE ER 100 MG TABLET EXTENDED RELEASE 24 HOUR 1 TABLET ORALLY ONCE A DAY DISCONTINUED XARELTO 15 MG TABLET 1 TABLET WITH FOOD ORALLY ONCE A DAY MEDICATION LIST REVIEWED AND RECONCILED WITH THE PATIENT PAST MEDICAL HISTORY ANGINA IRREGULAR HEART BEAT PULMONARY 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 HYPERTENSION DAKOTAH-UNABLE TO TOLERATE CPAP ASTHMA BACK AND LEFT LEG PAIN ARTHRITIS GERD SEVERE NOSE BLEED ALLERGIES LATEX (FOR ALLERGY USE ONLY): DIFFICULTY BREATHING, ITCHING - ALLERGY ENVIRONMENTAL: SINUS CONGESTION, COUGH - ALLERGY SURGICAL HISTORY RIGHT ROTATOR CUFF REPAIR 08/2017, 12/2017 ARTHROSCOPY BILARTERAL KNEES SCREWS LEFT KNEE 2007 CHOLECYSTECTOMY 2010 TEAR DUCT OPENED A BABY LEFT CARPAL TUNNEL REPAIR 2007 TONSILLECTOMY AGE 12 D&C X 4 FAMILY HISTORY FATHER: NO KNOWN HISTORY ON FATHER MOTHER: ALIVE, DIAGNOSED WITH HYPERTENSION SIBLINGS: 1DAUGHTER(S) - HEALTHY. OLDEST [id number] PROBLEMS.YOUNGEST BROTHER FROM LOGGING ACCIDENT. SOCIAL HISTORY GENERAL: TOBACCO USE ARE YOU A:NONSMOKER EDUCATION LEVEL OF EDUCATION:HIGH SCHOOL DIET: REGULAR. LANGUAGE LANGUAGES SPOKEN:YAKUT DOMESTIC VIOLENCE DO YOU FEEL SAFE IN YOUR ENVIRONMENT?YES NEW PATIENT PAIN DIARY PATIENT DESCRIBES PAIN : ACHING, BURNING, HAVE IT ALL THE TIME, SHARP, STABBING, TENDER, SORE, SHOOTING, FROM 0-10, WHAT LEVEL IS YOUR PAIN TODAY? 10. RECREATIONAL DRUG USE DRUG USE?NO EXERCISE: NONE. LEARNING BARRIERS / SPECIAL NEEDS BARRIERS TO LEARNING?NO HEARING IMPAIRED?NO VISION IMPAIRED?YES COGNITIVELY IMPAIRED?NO :CORRECTIVE LENSES READINESS TO LEARN?YES LEARNING PREFERENCES?NO LEARNING CAPABILITIES PRESENT?YES EMOTIONAL BARRIERS?NO SPECIAL DEVICES?YES :CANE SECTION LEADER NEEDED?NO PAIN CLINIC PFS, CLERGY, PUBLIC HEALTH REFERRALS PFS REFERRAL NEEDED?NO CLERGY REFERRAL NEEDED?NO PUBLIC HEALTH REFERRAL NEEDED?NO WAS THE PROVIDER NOTIFIED OF ANY PERTINENT INFO? N/A HAS THE PATIENT BEEN EDUCATED REGARDING HIS/HER PLAN OF CARE?YES HAS THE PATIENT BEEN EDUCATED REGARDING PAIN, THE RISK FOR PAIN, THE IMPORTANCE OF EFFECTIVE PAIN MANAGEMENT, AND THE PAIN ASSESSMENT PROCESS?YES LATEX QUESTIONNAIRE LATEX ALLERGY : HAVE YOU EVER DEVELOPED ANY TYPE OF REACTION AFTER HANDLING LATEX PRODUCTS SUCH RUBBER GLOVES, CONDOMS, DIAPHRAGMS, BALLOONS, SOCKS, OR UNDERWEAR?YES - PLEASE INDICATE :RUBBER GLOVES, OTHER (DOCUMENT IN NOTES) LATEX ALLERGY LATEX ALLERGY : HAVE YOU EVER DEVELOPED ANY TYPE OF REACTION DURING OR AFTER DENTAL APPOINTMENT, VAGINAL/RECTAL EXAMINATION, SURGICAL PROCEDURE, OR ANY OTHER EXPOSURE?NO LATEX RISK : HAVE YOU EVER HAD ANY DIFFICULTY BREATHING OR HIVES AFTER EATING OR HANDLING ANY FRUITS, OR VEGETABLES; SUCH KIWI, BANANAS, STONE FRUITS, OR CHESTNUTSNO LATEX RISK : DO YOU HAVE A PREVIOUS PERSONAL HISTORY OF MORE THAN NINE SURGERIES, SPINA BIFIDA, OR REPEATED CATHERIZATIONS? YES - PLEASE INDICATE : > 9 SURGERIES LATEX RISK : ARE YOU FREQUENTLY EXPOSED TO LATEX PRODUCTS IN YOUR OCCUPATION?NO DATE ASKED : 01/31/2019 ADVANCE DIRECTIVE ADVANCE DIRECTIVE DISCUSSED WITH PATIENT:YES 12/01/18 [id number] KINGSTON [phone] TAOISM [id number] MOSQUE MARITAL STATUS: SINGLE. ALCOHOL SCREENING DID YOU HAVE A DRINK CONTAINING ALCOHOL IN THE PAST YEAR?YES HOW OFTEN DID YOU HAVE SIX OR MORE DRINKS ON ONE OCCASION IN THE PAST YEAR?NEVER (0 POINTS) HOW MANY DRINKS DID YOU HAVE ON A TYPICAL DAY WHEN YOU WERE DRINKING IN THE PAST YEAR?3 OR 4 (1 POINT) HOW OFTEN DID YOU HAVE A DRINK CONTAINING ALCOHOL IN THE PAST YEAR?MONTHLY OR LESS (1 POINT) POINTS2 INTERPRETATIONNEGATIVE OCCUPATION: DISABLED. HOSPITALIZATION/MAJOR DIAGNOSTIC PROCEDURE SHOULDER SURGERY 08/2017,12/2017 PULMONARY EMBOLISM 02/2019 CHILDBIRTH SEVERE NOSE BLEED 10/13- REVIEW OF SYSTEMS REVIEWED BY: PROVIDER: . CONSTITUTIONAL: ANY CHANGE IN YOUR MEDICAL CONDITION? NO . CHILLS NO . FEVER NO . INFECTION: DO YOU HAVE NEW INFECTIONS? NO . DO YOU HAVE HISTORY OF MRSA? NO . MUSCULOSKELETAL: ANY NEW PATTERNS OF PAIN OR NUMBNESS? YES . GASTROENTEROLOGY: ANY NEW CHANGE IN BOWEL CONTROL? NO . GENITOURINARY: ANY NEW CHANGE IN BLADDER CONTROL? YES . IS THERE A CHANCE YOU COULD BE ? NO . HEMATOLOGY/LYMPH: DO YOU TAKE ANY BLOOD THINNERS? (FOR EXAMPLE- COUMADIN, PLAVIX, AGGRENOX, PLATEL, PRADAXA, OR XARELTO) NO . WHEN WAS YOUR LAST DOSE? DATE: TIME: . NEUROLOGY: HAVE YOU FALLEN IN THE PAST 12 MONTHS? YES,LEG GAVE OUT AND FELL ON HER KNEES . ANY NEW EXTREMITY NUMBNESS OR WEAKNESS? YES . CARDIOLOGY: DO YOU HAVE A PACEMAKER OR DEFIBRILLATOR? NO . RESPIRATORY: HAVE YOU BEEN SICK IN THE PAST WEEK? NO . FEVER NO . FLU LIKE SYMPTOMS? NO . COUGH NO . INTEGUMENTARY: DO YOU HAVE ANY RASHES OR OPEN SORES? NO . ALLERGIC/IMMUNO: ARE YOU ALLERGIC TO IV DYE? NO . ANY NEW ALLERGIES? NO . PSYCHIATRIC: DO YOU HAVE THOUGHTS OF HURTING YOURSELF OR SOMEONE ELSE? NO . ARE YOU ABUSED, NEGLECTED, OR IN AN UNSAFE ENVIRONMENT? NO . ENDOCRINOLOGY: ARE YOU DIABETIC? NO . OTHER: DO YOU NEED ANY PRESCRIPTIONS? NO . IF YES, PLEASE LIST: ____ . ANY NEW PROBLEMS WITH YOUR MEDICATIONS? NO . WHEN DID YOU LAST EAT? ____01/30/19 . WHEN DID YOU LAST DRINK? ____0200 . WHAT DID YOU LAST DRINK? ____WATER . NAME OF PERSON DRIVING YOU HOME? ____ . DO YOU HAVE ANY OTHER QUESTIONS OR CONCERNS NO . VITAL SIGNS WT 208.6 LBS, HT 64 IN, BMI 35.80 INDEX, BP 216/134 MM HG, REPEAT BP 140/100MANUAL, HR 86 /MIN, RR 18 /MIN, TEMP 97.6 F, OXYGEN SAT % 97%, NA INITIALS SC 10:40. ASSESSMENTS INTERVERTEBRAL DISC DISORDER WITH RADICULOPATHY OF LUMBAR REGION - M51.16 (PRIMARY) TREATMENT INTERVERTEBRAL DISC DISORDER WITH RADICULOPATHY OF LUMBAR REGION [facility] FLUORO GUIDE SPINE INJECTION (PAIN)[id number] PROCEDURES PRE PROCEDURE DIAGNOSIS LUMBAR DISC DISORDER WITH RADICULOPATHY POST PROCEDURE DIAGNOSIS LUMBAR DISC DISORDER WITH RADICULOPATHY PROCEDURE LUMBAR EPIDURAL STEROID INJECTION UNDER FLUOROSCOPIC GUIDANCE SURGEON DR. JOHANN JOHNSON DATA REVIEWER NONE ANESTHESIA LOCAL PRE PROCEDURE NOTE THE PATIENT HAS A HISTORY OF CHRONIC LOW BACK PAIN. I EVALUATED THE PATIENT AND REVIEWED THE CHART. I WENT OVER THE RISKS, ALTERNATIVES, AND BENEFITS ASSOCIATED WITH THIS PROCEDURE. THE PATIENT WOULD LIKE TO PROCEED AND GIVE CONSENT TO PERFORMED THE PROCEDURE. THE PATIENT DENIES UNEXPLAINABLE WEIGHT LOSS, FEVER, CHILLS, OR NEW CHANGES IN URINARY OR BOWEL CONTROL. DESCRIPTION OF PROCEDURE THE PATIENT WAS BROUGHT TO THE PROCEDURE ROOM AND PLACED IN THE PRONE POSITION. THE LUMBOSACRAL AREA WAS CLEANED WITH BETADINE SOLUTION AND DRAPED ASEPTICALLY. THE PROCEDURE WAS DONE UNDER STERILE CONDITIONS. I CHECKED LATERALITY AND THE LEVEL WHERE THE PROCEDURE WAS GOING TO BE PERFORMED WITH THE PATIENT AND THE SUPPORTING STAFF AT THE MOMENT OF THE TIME OUT IN THE PROCEDURE ROOM. UNDER FLUOROSCOPIC GUIDANCE, THE TARGET POINT WAS SELECTED AT THE INTERLAMINAR LEVEL OF L4-L5. LIDOCAINE WAS USED TO NUMB THE SKIN AND THE SUBCUTANEOUS TISSUE BELOW IT. EPIDURAL TUOHY NEEDLE, 17-GAUGE, WAS ADVANCED UNDER FLUOROSCOPIC GUIDANCE AND FOLLOWING PATIENT FEEDBACK UNTIL THE EPIDURAL SPACE WAS REACHED, 7 CM DEEP INTO THE SKIN BY THE LOSS OF RESISTANCE TECHNIQUE. ISOVUE M DYE 30%, 0.25 ML, WAS INJECTED SHOWING ADEQUATE SPREAD OF THE DYE. THEN, A SOLUTION OF 3 ML OF NORMAL SALINE WITH DEPO-MEDROL 60 MG WAS INJECTED SLOWLY FOLLOWING PATIENT FEEDBACK. THERE WAS NO EVIDENCE OF BLOOD, PARESTHESIA OR CEREBROSPINAL FLUID DURING THE PROCEDURE. THE PATIENT WAS SENT TO THE RECOVERY ROOM. THE PATIENT WAS MOVING THE EXTREMITIES AND DOING WELL. THERE WAS NO COMPLICATION DURING THE PROCEDURE. FLUOROSCOPY TIME WAS 5 SECONDS. POST PROCEDURE NOTE THE PATIENT WILL BE SEEN IN A FOLLOW UP IN THE NEXT FEW WEEKS. INSTRUCTIONS WERE GIVEN, QUESTIONS WERE ANSWERED, AND THE PATIENT EXPRESSED UNDERSTANDING AND AGREES WITH THE PLAN. I, VASQUEZ CARRASCO, DOCUMENTED THE ABOVE INFORMATION ACTING A SCRIBE FOR DR. JOHNSON. I HAVE REVIEWED THE ABOVE DOCUMENT, WRITTEN BY VASQUEZ ABARCA AND I VERIFY THAT IT IS ACCURATE. PROCEDURE CODES 29772 LUMBAR/SACRAL W/ IMAGING 6045F RADXPS IN END [id number] PXD DISPOSITION & COMMUNICATION FOLLOW UP 2 WEEKS ELECTRONICALLY SIGNED BY JOHANN JOHNSON MD, MD ON 02/09/2019 AT 11:59 AM EDT DISCLAIMER : THIS IS A VISIT SUMMARY EXTRACTED FROM THE [employer] CHART. IT IS NOT A COPY OF THE [employer] PROGRESS NOTE. MTDD
== END ==
LOC: M PAIN 11:15
PROVIDERS: ATTEND Anesthesiology
DX: M51.16 Intervertebral disc disorders with radiculopathy, lumbar region (principal); I24.8 Other forms of acute ischemic heart disease; I10 Essential (primary) hypertension; G47.33 Obstructive sleep apnea (adult) (pediatric); J45.909 Unspecified asthma, uncomplicated; K21.9 Gastro-esophageal reflux disease without esophagitis; Z86.711 Personal history of pulmonary embolism; I49.9 Cardiac arrhythmia, unspecified; Z79.82 Long term (current) use of aspirin; Z79.891 Long term (current) use of opiate analgesic; Z79.899 Other long term (current) drug therapy; Z90.49 Acquired absence of other specified parts of digestive tract; Z91.040 Latex allergy status
CPT/HCPCS: 62323; J1030; Q9967

== ENCOUNTER → 2019-02-19 | Outpatient (CLI) | payer OTHER ==
[~2019-02-19] MED LIST changes: -ISOVUE-M 300 61% 15ML VIAL (Q9967) As Ordered ONE; -LIDOCAINE 1% SDV INJ 30 ML VIAL As Ordered ONE; +OMEP40CA2 PO; -OMEP40CA97 PO; -diazePAM 5 MG TAB As Ordered ONE; -methylPREDNISolone SUSP 40 MG/ML (DEPO-medrol) VIAL (J1030) As Ordered ONE; -oxyCODONE 5MG TAB As Ordered ONE
--- NOTE | 2019-02-21 00:43 | ECWPNPC ---
PATIENT NAME: ELISE KINGSTON : 1970 GENDER: FEMALE VISIT DATE: 02/19/2019 DISCHARGE DATE: 02/19/19 1523 VISIT LOCKED DATE TIME: PHYSICIAN: LICHA ARENAS RESOURCE: LICHA ARENAS REASON FOR APPOINTMENT 1. POST LESI L1-L2, L2-L3, MVP, HISTORY OF PRESENT ILLNESS HISTORY OF PRESENT ILLNESS: PAIN THE PATIENT DESCRIBES THE PAIN... 48-YEAR-OLD FEMALE IN FOR POST LESI FOLLOW-UP. SHE FEELS THE PROCEDURE WORKED WELL SHE RATED HER PAIN PREPROCEDURE AT A 9 OUT OF 10 AND POSTPROCEDURE AT A 0 OUT OF 10. SHE FEELS THE PROCEDURE WORKED WELL HOWEVER SHE DOES STATE WHEN SHE STARTED HER MENSES AT THE END OF LAST WEEK HER PAIN RETURNED. FALL RISK SCREENING: SCREENING :NO FALLS REPORTED IN THE LAST YEAR CURRENT MEDICATIONS TAKING PRAZOSIN HCL 2 MG CAPSULE 1 CAPSULE AT BEDTIME ORALLY ONCE A DAY TAKING OMEPRAZOLE 40 MG CAPSULE DELAYED RELEASE 1 CAPSULE ORALLY ONCE A DAY TAKING ALPRAZOLAM 0.5 MG TABLET 1 TABLET ORALLY MDD2 TWICE A DAY TAKING BACLOFEN 10 MG TABLET 1 TABLET WITH FOOD OR MILK ORALLY TWICE A DAY NEEDED TAKING ASPIRIN 81 MG TABLET CHEWABLE 1 TABLET ORALLY ONCE A DAY TAKING TRAMADOL HCL 50 MG TABLET 1 TABLET NEEDED ORALLY EVERY 4-6 HRS TAKING VITAMIN C 500 MG CAPSULE 1 CAP ORALLY DAILY TAKING VENTOLIN HFA 108 (90 BASE) MCG/ACT AEROSOL SOLUTION 2 PUFFS NEEDED INHALATION EVERY 6 HRS TAKING VITAMIN B-12 500 MCG TABLET 1 TABLET ORALLY ONCE A DAY TAKING SYSTANE 0.4-0.3 % SOLUTION 1 DROP EACH EYE OPHTHALMIC DAILY NEEDED TAKING VALSARTAN 160 MG TABLET 1 TABLET ORALLY TWICE A DAY TAKING BUSPAR 10 MGS 1 TAB ORALLY TWICE DAILY TAKING HYDRALAZINE HCL 50 MG TABLET 1 TABLET WITH FOOD ORALLY THREE TIMES A DAY TAKING ABILIFY 5 MG TABLET 1 TABLET ORALLY ONCE A DAY TAKING RANITIDINE 150 MAX STRENGTH 150 MG TABLET 1 TAB ORALLY TWICE DAILY TAKING HYDROCHLOROTHIAZIDE 12.5 MG CAPSULE 1 CAPSULE IN THE MORNING ORALLY ONCE A DAY TAKING LABETALOL HCL 200 MG TABLET 1 TABLET ORALLY TWICE A DAY TAKING LOTEMAX 0.5 % OINTMENT 1 APPLICATION OPHTHALMIC FOUR TIMES DAILY NEEDED TAKING ANT MAG ZINC +D3 - TABLET (NO VIT D) DIRECTED ORALLY DAILY TAKING GABAPENTIN 300 MG CAPSULE 1 TAB IN THE MORNING AND AFTERNOON AND 2 AT BEDTIME ORALLY FOR PAIN THREE TIMES A DAY TAKING ARIPIPRAZOLE 5 MG TABLET 1 TABLET ORALLY TWICE A DAY TAKING NORVASC 5 MG TABLET 1 TABLET ORALLY BID NEEDED TAKING NAPROXEN 500 MG TABLET DELAYED RELEASE 1 TABLET ORALLY TWICE A DAY TAKING KLOR-CON 10 10 MEQ TABLET EXTENDED RELEASE 1 TABLET WITH FOOD ORALLY TWICE A DAY TAKING METOPROLOL SUCCINATE ER 100 MG TABLET EXTENDED RELEASE 24 HOUR 1 TABLET ORALLY ONCE A DAY MEDICATION LIST REVIEWED AND RECONCILED WITH THE PATIENT PAST MEDICAL HISTORY ANGINA IRREGULAR HEART BEAT PULMONARY 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 HYPERTENSION DAKOTAH-UNABLE TO TOLERATE CPAP ASTHMA BACK AND LEFT LEG PAIN ARTHRITIS GERD SEVERE NOSE BLEED ALLERGIES LATEX (FOR ALLERGY USE ONLY): DIFFICULTY BREATHING, ITCHING - ALLERGY ENVIRONMENTAL: SINUS CONGESTION, COUGH - ALLERGY SURGICAL HISTORY RIGHT ROTATOR CUFF REPAIR 08/2017, 12/2017 ARTHROSCOPY BILARTERAL KNEES SCREWS LEFT KNEE 2007 CHOLECYSTECTOMY 2010 TEAR DUCT OPENED A BABY LEFT CARPAL TUNNEL REPAIR 2006 TONSILLECTOMY AGE 12 D&C X 4 FAMILY HISTORY FATHER: NO KNOWN HISTORY ON FATHER MOTHER: ALIVE, DIAGNOSED WITH HYPERTENSION SIBLINGS: 1DAUGHTER(S) - HEALTHY. OLDEST [id number] PROBLEMS.YOUNGEST BROTHER FROM LOGGING ACCIDENT. SOCIAL HISTORY GENERAL: TOBACCO USE ARE YOU A:NONSMOKER EDUCATION LEVEL OF EDUCATION:HIGH SCHOOL DIET: REGULAR. LANGUAGE LANGUAGES SPOKEN:CHINESE DOMESTIC VIOLENCE DO YOU FEEL SAFE IN YOUR ENVIRONMENT?YES RECREATIONAL DRUG USE DRUG USE?NO EXERCISE: NONE. 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 N/A HAS THE PATIENT BEEN EDUCATED REGARDING HIS/HER PLAN OF CARE?YES HAS THE PATIENT BEEN EDUCATED REGARDING PAIN, THE RISK FOR PAIN, THE IMPORTANCE OF EFFECTIVE PAIN MANAGEMENT, AND THE PAIN ASSESSMENT PROCESS?YES LATEX QUESTIONNAIRE LATEX ALLERGY : HAVE YOU EVER DEVELOPED ANY TYPE OF REACTION AFTER HANDLING LATEX PRODUCTS SUCH RUBBER GLOVES, CONDOMS, DIAPHRAGMS, BALLOONS, SOCKS, OR UNDERWEAR?YES - PLEASE INDICATE :RUBBER GLOVES, OTHER (DOCUMENT IN NOTES) LATEX ALLERGY LATEX ALLERGY : HAVE YOU EVER DEVELOPED ANY TYPE OF REACTION DURING OR AFTER DENTAL APPOINTMENT, VAGINAL/RECTAL EXAMINATION, SURGICAL PROCEDURE, OR ANY OTHER EXPOSURE?NO LATEX RISK : HAVE YOU EVER HAD ANY DIFFICULTY BREATHING OR HIVES AFTER EATING OR HANDLING ANY FRUITS, OR VEGETABLES; SUCH KIWI, BANANAS, STONE FRUITS, OR CHESTNUTSNO LATEX RISK : DO YOU HAVE A PREVIOUS PERSONAL HISTORY OF MORE THAN NINE SURGERIES, SPINA BIFIDA, OR REPEATED CATHERIZATIONS? YES - PLEASE INDICATE : > 9 SURGERIES LATEX RISK : ARE YOU FREQUENTLY EXPOSED TO LATEX PRODUCTS IN YOUR OCCUPATION?NO DATE ASKED : 02/19/2019 ADVANCE DIRECTIVE ADVANCE DIRECTIVE DISCUSSED WITH PATIENT:YES 02/19/19 [id number] KINGSTON [phone] AD CONGREGATIONAL [id number] CHRISTIAN MARITAL STATUS: SINGLE. ALCOHOL SCREENING DID YOU HAVE A DRINK CONTAINING ALCOHOL IN THE PAST YEAR?YES HOW OFTEN DID YOU HAVE SIX OR MORE DRINKS ON ONE OCCASION IN THE PAST YEAR?NEVER (0 POINTS) HOW MANY DRINKS DID YOU HAVE ON A TYPICAL DAY WHEN YOU WERE DRINKING IN THE PAST YEAR?3 OR 4 (1 POINT) HOW OFTEN DID YOU HAVE A DRINK CONTAINING ALCOHOL IN THE PAST YEAR?MONTHLY OR LESS (1 POINT) POINTS2 INTERPRETATIONNEGATIVE OCCUPATION: DISABLED. HOSPITALIZATION/MAJOR DIAGNOSTIC PROCEDURE SHOULDER SURGERY 08/2017,12/2017 PULMONARY EMBOLISM 02/2019 CHILDBIRTH SEVERE NOSE BLEED 10/13- REVIEW OF SYSTEMS REVIEWED BY: PROVIDER: LYNN RAUSCH-Shalom . CONSTITUTIONAL: ANY CHANGE IN YOUR MEDICAL CONDITION? NO . CHILLS NO . FEVER NO . INFECTION: DO YOU HAVE NEW INFECTIONS? NO . DO YOU HAVE HISTORY OF MRSA? NO . MUSCULOSKELETAL: ANY NEW PATTERNS OF PAIN OR NUMBNESS? NO . GASTROENTEROLOGY: ANY NEW CHANGE IN BOWEL CONTROL? NO . GENITOURINARY: ANY NEW CHANGE IN BLADDER CONTROL? NO . IS THERE A CHANCE YOU COULD BE ? NO . HEMATOLOGY/LYMPH: DO YOU TAKE ANY BLOOD THINNERS? (FOR EXAMPLE- COUMADIN, PLAVIX, AGGRENOX, PLATEL, PRADAXA, OR XARELTO) NO . WHEN WAS YOUR LAST DOSE? DATE: TIME: . NEUROLOGY: HAVE YOU FALLEN IN THE PAST 12 MONTHS? YES, TWICE, RIGTH ROTATOR CUFF TEAR BOTH TIMES . ANY NEW EXTREMITY NUMBNESS OR WEAKNESS? NO . CARDIOLOGY: DO YOU HAVE A PACEMAKER OR DEFIBRILLATOR? NO . RESPIRATORY: HAVE YOU BEEN SICK IN THE PAST WEEK? NO . FEVER NO . FLU LIKE SYMPTOMS? NO . COUGH NO . INTEGUMENTARY: DO YOU HAVE ANY RASHES OR OPEN SORES? NO . ALLERGIC/IMMUNO: ARE YOU ALLERGIC TO IV DYE? NO . ANY NEW ALLERGIES? NO . PSYCHIATRIC: DO YOU HAVE THOUGHTS OF HURTING YOURSELF OR SOMEONE ELSE? NO . ARE YOU ABUSED, NEGLECTED, OR IN AN UNSAFE ENVIRONMENT? NO . ENDOCRINOLOGY: ARE YOU DIABETIC? NO . OTHER: DO YOU NEED ANY PRESCRIPTIONS? YES . IF YES, PLEASE LIST: TYLENOL #4 OR VICODIN . ANY NEW PROBLEMS WITH YOUR MEDICATIONS? NO . WHEN DID YOU LAST EAT? ____ . WHEN DID YOU LAST DRINK? ____ . WHAT DID YOU LAST DRINK? ____ . NAME OF PERSON DRIVING YOU HOME? ____ . DO YOU HAVE ANY OTHER QUESTIONS OR CONCERNS NO SHE HAS HAD AND INCREASE IN HER BACK PAIN OVER THE PAST COUPLE OF DAYS AND PT IS UNSURE IF IT IS RELATED TO STARTING HER PEROID OR THE INJECTION HAS STOPPED WORKING. . VITAL SIGNS WT 210.6 LBS, HT 64 IN, BMI 36.15 INDEX, BP 176/112 MM HG, REPEAT BP 147/79MANUAL, HR 97 /MIN, RR 18 /MIN, TEMP 98.0 F, OXYGEN SAT % 97%, SAFE IN ENV? (Y/N) Y, NA INITIALS WV 14:41, REVIEWED BY: MATT. EXAMINATION GENERAL EXAMINATION: GENERALNO ACUTE DISTRESS, WELL NOURISHED AND HYDRATED. PSYCHAPPROPRIATE MOOD AND AFFECT . LUNGS:CLEAR TO AUSCULTATION BILATERALLY, NO WHEEZES, RHONCHI, RALES. HEART:NO MURMURS, REGULAR RATE AND RHYTHM. BACK:POINT TENDER LUMBAR SPINE SURROUNDING SKIN SHOWS NO ERYTHEMA, ECCHYMOSIS, INCREASED WARMTH, AND/OR SKIN ERUPTIONS NOTED. POSITIVE MODIFIED SLR ON THE RIGHT SIDE. . MUSCULOSKELETAL:EQUAL STRENGTH OF LOWER EXTREMITIES BILATERALLY . ASSESSMENTS INTERVERTEBRAL DISC DISORDER WITH RADICULOPATHY OF LUMBAR REGION - M51.16 (PRIMARY) TREATMENT OTHERS NOTES: LESI L1-L2,L3-L4. CLINICAL NOTES: 48-YEAR-OLD FEMALE IN FOR POST LESI FOLLOW-UP. GIVEN PRESENTING SYMPTOMS AND RESULTS OF PHYSICAL EXAMINATION RECOMMENDED REPEAT LESI WITH POSTPROCEDURAL FOLLOW-UP. PATIENT WAS ALSO ENCOURAGED TO USE HER NAPROXEN SHE WAS HAVING COMPLAINTS OF INCREASED BACK PAIN. SHE WAS INSTRUCTED NOT TO TAKE OTHER NSAIDS WHILE ON THIS MEDICATION AND TO TAKE IT WITH FOOD. PATIENT HAS EXPRESSED UNDERSTANDING OF AND WAS IN AGREEMENT WITH TREATMENT PLAN. GIVEN TIME TO ASK QUESTIONS AND EXPRESS CONCERNS. PREVENTIVE MEDICINE PAIN CLINIC TEACHING: PROCEDURE TEACHING LUMBAR EPIDURAL STEROID INJECTION PROCEDURE INFORMATION REVIEWED WITH PATIENT, TERRELL TRAN PRINTED INFORMATION 02/19/19 1528 NLJ. PROCEDURE CODES FA211 ESTABILISHED PATIENT [facility] CHARGE DISPOSITION & COMMUNICATION FOLLOW UP POST PROCEDURE (REASON: LESI L1-L2,L3-L4) ELECTRONICALLY SIGNED BY MIRACLE CAMARENA ON 02/20/2019 AT 10:00 AM EDT ADDENDUM: 02/20/2019 10:09 AM LICHA ARENAS > LESI L4-L5,L5-S1 DISCLAIMER : THIS IS A VISIT SUMMARY EXTRACTED FROM THE [employer] CHART. IT IS NOT A COPY OF THE [employer] PROGRESS NOTE. MANDY
== END ==
LOC: M PAIN 14:15
PROVIDERS: ATTEND Family Medicine
DX: M51.16 Intervertebral disc disorders with radiculopathy, lumbar region (principal); Z86.711 Personal history of pulmonary embolism; I10 Essential (primary) hypertension; G47.33 Obstructive sleep apnea (adult) (pediatric); J45.909 Unspecified asthma, uncomplicated; M19.90 Unspecified osteoarthritis, unspecified site; K21.9 Gastro-esophageal reflux disease without esophagitis; Z91.040 Latex allergy status; Z79.82 Long term (current) use of aspirin; Z79.899 Other long term (current) drug therapy

== ENCOUNTER → 2019-04-05 | Outpatient (CLI) | payer OTHER ==
[~2019-04-05] MED LIST changes: +ISOVUE-M 300 61% 15ML VIAL (Q9967) As Ordered ONE; +LIDOCAINE 1% SDV INJ 30 ML VIAL As Ordered ONE; -OMEP40CA2 PO; +OMEP40CA97 PO; +diazePAM 5 MG TAB As Ordered ONE; +methylPREDNISolone SUSP 40 MG/ML (DEPO-medrol) VIAL (J1030) As Ordered ONE; +oxyCODONE 5MG TAB As Ordered ONE
--- NOTE | 2019-04-05 11:01 | REP ---
Lumbar spine limited study single view. History: Injection procedure for pain. 12 seconds of fluoroscopy time is reported. Findings: A single last image hold fluoroscopically obtained spot radiograph of the lumbar spine documents needle position and contrast injection associated with injection procedure. Electronically Signed by Broderick Jackson MD 04/05/2019 10:52 A
--- NOTE | 2019-04-13 01:05 | ECWPNPC ---
PATIENT NAME: ELISE KINGSTON : 1970 GENDER: FEMALE VISIT DATE: 04/05/2019 DISCHARGE DATE: 04/05/19 1053 VISIT LOCKED DATE TIME: PHYSICIAN: JOHANN JOHNSON MD RESOURCE: JOHANN JOHNSON MD REASON FOR APPOINTMENT 1. LESI L4-L5 HISTORY OF PRESENT ILLNESS HISTORY OF PRESENT ILLNESS: PAIN THE PATIENT DESCRIBES THE PAIN... FALL RISK SCREENING: SCREENING :NO FALLS REPORTED IN THE LAST YEAR CURRENT MEDICATIONS TAKING PRAZOSIN HCL 2 MG CAPSULE 1 CAPSULE AT BEDTIME ORALLY ONCE A DAY, NOTES: 04/04/19@1900 TAKING OMEPRAZOLE 40 MG CAPSULE DELAYED RELEASE 1 CAPSULE ORALLY ONCE A DAY, NOTES: 729 TAKING ALPRAZOLAM 0.5 MG TABLET 1 TABLET ORALLY MDD2 TWICE A DAY, NOTES: 729 TAKING BACLOFEN 10 MG TABLET 1 TABLET WITH FOOD OR MILK ORALLY TWICE A DAY NEEDED, NOTES: 729 TAKING ASPIRIN 81 MG TABLET CHEWABLE 1 TABLET ORALLY ONCE A DAY, NOTES: 729 TAKING TRAMADOL HCL 50 MG TABLET 1 TABLET NEEDED ORALLY EVERY 4-6 HRS, NOTES: 2 MONTHS AGO TAKING VITAMIN C 500 MG CAPSULE 1 CAP ORALLY DAILY, NOTES: 729 TAKING VENTOLIN HFA 108 (90 BASE) MCG/ACT AEROSOL SOLUTION 2 PUFFS NEEDED INHALATION EVERY 6 HRS, NOTES: 4 DAYS AGO TAKING VITAMIN B-12 500 MCG TABLET 1 TABLET ORALLY ONCE A DAY, NOTES: 729 TAKING SYSTANE 0.4-0.3 % SOLUTION 1 DROP EACH EYE OPHTHALMIC DAILY NEEDED, NOTES: NONE RECENTLY TAKING VALSARTAN 160 MG TABLET 1 TABLET ORALLY TWICE A DAY, NOTES: 729 TAKING BUSPAR 10 MGS 1 TAB ORALLY TWICE DAILY, NOTES: 729 TAKING HYDRALAZINE HCL 50 MG TABLET 1 TABLET WITH FOOD ORALLY THREE TIMES A DAY, NOTES: 729 TAKING ABILIFY 5 MG TABLET 1 TABLET ORALLY ONCE A DAY, NOTES: 729 TAKING RANITIDINE 150 MAX STRENGTH 150 MG TABLET 1 TAB ORALLY TWICE DAILY, NOTES: 729 TAKING HYDROCHLOROTHIAZIDE 12.5 MG CAPSULE 1 CAPSULE IN THE MORNING ORALLY ONCE A DAY, NOTES: 729 TAKING LABETALOL HCL 200 MG TABLET 1 TABLET ORALLY TWICE A DAY, NOTES: 729 TAKING LOTEMAX 0.5 % OINTMENT 1 APPLICATION OPHTHALMIC FOUR TIMES DAILY NEEDED, NOTES: 729 TAKING ANT MAG ZINC +D3 - TABLET (NO VIT D) DIRECTED ORALLY DAILY, NOTES: 729 TAKING GABAPENTIN 300 MG CAPSULE 1 TAB IN THE MORNING AND AFTERNOON AND 2 AT BEDTIME ORALLY FOR PAIN THREE TIMES A DAY, NOTES: 729 TAKING ARIPIPRAZOLE 10 MG TABLET 1 TABLET ORALLY TWICE A DAY, NOTES: 729 TAKING NORVASC 5 MG TABLET 1 TABLET ORALLY BID NEEDED, NOTES: 729 TAKING NAPROXEN 500 MG TABLET DELAYED RELEASE 1 TABLET ORALLY TWICE A DAY, NOTES: 729 TAKING KLOR-CON 10 10 MEQ TABLET EXTENDED RELEASE 1 TABLET WITH FOOD ORALLY TWICE A DAY, NOTES: 729 TAKING METOPROLOL SUCCINATE ER 100 MG TABLET EXTENDED RELEASE 24 HOUR 1 TABLET ORALLY ONCE A DAY, NOTES: 729 MEDICATION LIST REVIEWED AND RECONCILED WITH THE PATIENT PAST MEDICAL HISTORY ANGINA IRREGULAR HEART BEAT PULMONARY 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 HYPERTENSION DAKOTAH-UNABLE TO TOLERATE CPAP ASTHMA BACK AND LEFT LEG PAIN ARTHRITIS GERD SEVERE NOSE BLEED ALLERGIES LATEX (FOR ALLERGY USE ONLY): DIFFICULTY BREATHING, ITCHING - ALLERGY ENVIRONMENTAL: SINUS CONGESTION, COUGH - ALLERGY SURGICAL HISTORY RIGHT ROTATOR CUFF REPAIR 08/2017, 12/2017 ARTHROSCOPY BILARTERAL KNEES SCREWS LEFT KNEE 2007 CHOLECYSTECTOMY 2010 TEAR DUCT OPENED A BABY LEFT CARPAL TUNNEL REPAIR 2007 TONSILLECTOMY AGE 12 D&C X 4 FAMILY HISTORY FATHER: NO KNOWN HISTORY ON FATHER MOTHER: ALIVE, DIAGNOSED WITH HYPERTENSION SIBLINGS: 1DAUGHTER(S) - HEALTHY. OLDEST [id number] PROBLEMS.YOUNGEST BROTHER FROM LOGGING ACCIDENT. SOCIAL HISTORY GENERAL: TOBACCO USE ARE YOU A:NONSMOKER EDUCATION LEVEL OF EDUCATION:HIGH SCHOOL DIET: REGULAR. LANGUAGE LANGUAGES SPOKEN:YI DOMESTIC VIOLENCE DO YOU FEEL SAFE IN YOUR ENVIRONMENT?YES RECREATIONAL DRUG USE DRUG USE?NO EXERCISE: NONE. 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 N/A HAS THE PATIENT BEEN EDUCATED REGARDING HIS/HER PLAN OF CARE?YES HAS THE PATIENT BEEN EDUCATED REGARDING PAIN, THE RISK FOR PAIN, THE IMPORTANCE OF EFFECTIVE PAIN MANAGEMENT, AND THE PAIN ASSESSMENT PROCESS?YES LATEX QUESTIONNAIRE LATEX ALLERGY : HAVE YOU EVER DEVELOPED ANY TYPE OF REACTION AFTER HANDLING LATEX PRODUCTS SUCH RUBBER GLOVES, CONDOMS, DIAPHRAGMS, BALLOONS, SOCKS, OR UNDERWEAR?YES - PLEASE INDICATE :RUBBER GLOVES, OTHER (DOCUMENT IN NOTES) LATEX ALLERGY LATEX ALLERGY : HAVE YOU EVER DEVELOPED ANY TYPE OF REACTION DURING OR AFTER DENTAL APPOINTMENT, VAGINAL/RECTAL EXAMINATION, SURGICAL PROCEDURE, OR ANY OTHER EXPOSURE?NO LATEX RISK : HAVE YOU EVER HAD ANY DIFFICULTY BREATHING OR HIVES AFTER EATING OR HANDLING ANY FRUITS, OR VEGETABLES; SUCH KIWI, BANANAS, STONE FRUITS, OR CHESTNUTSNO LATEX RISK : DO YOU HAVE A PREVIOUS PERSONAL HISTORY OF MORE THAN NINE SURGERIES, SPINA BIFIDA, OR REPEATED CATHERIZATIONS? YES - PLEASE INDICATE : > 9 SURGERIES LATEX RISK : ARE YOU FREQUENTLY EXPOSED TO LATEX PRODUCTS IN YOUR OCCUPATION?NO DATE ASKED : 04/05/2019 ADVANCE DIRECTIVE ADVANCE DIRECTIVE DISCUSSED WITH PATIENT:YES 02/19/19 [id number] KINGSTON [phone] AD MORMONISM [id number] GNOSTICISM MARITAL STATUS: SINGLE. ALCOHOL SCREENING DID YOU HAVE A DRINK CONTAINING ALCOHOL IN THE PAST YEAR?YES HOW OFTEN DID YOU HAVE SIX OR MORE DRINKS ON ONE OCCASION IN THE PAST YEAR?NEVER (0 POINTS) HOW MANY DRINKS DID YOU HAVE ON A TYPICAL DAY WHEN YOU WERE DRINKING IN THE PAST YEAR?3 OR 4 (1 POINT) HOW OFTEN DID YOU HAVE A DRINK CONTAINING ALCOHOL IN THE PAST YEAR?MONTHLY OR LESS (1 POINT) POINTS2 INTERPRETATIONNEGATIVE OCCUPATION: DISABLED. HOSPITALIZATION/MAJOR DIAGNOSTIC PROCEDURE SHOULDER SURGERY 08/2017,12/2017 PULMONARY EMBOLISM 02/2019 CHILDBIRTH SEVERE NOSE BLEED 10/13- REVIEW OF SYSTEMS REVIEWED BY: PROVIDER: . CONSTITUTIONAL: ANY CHANGE IN YOUR MEDICAL CONDITION? NO . CHILLS NO . FEVER NO . INFECTION: DO YOU HAVE NEW INFECTIONS? NO . DO YOU HAVE HISTORY OF MRSA? NO . MUSCULOSKELETAL: ANY NEW PATTERNS OF PAIN OR NUMBNESS? YES . GASTROENTEROLOGY: ANY NEW CHANGE IN BOWEL CONTROL? YES . GENITOURINARY: ANY NEW CHANGE IN BLADDER CONTROL? NO . IS THERE A CHANCE YOU COULD BE ? NO . HEMATOLOGY/LYMPH: DO YOU TAKE ANY BLOOD THINNERS? (FOR EXAMPLE- COUMADIN, PLAVIX, AGGRENOX, PLATEL, PRADAXA, OR XARELTO) NO . WHEN WAS YOUR LAST DOSE? DATE: TIME: . NEUROLOGY: HAVE YOU FALLEN IN THE PAST 12 MONTHS? NO . ANY NEW EXTREMITY NUMBNESS OR WEAKNESS? NO . CARDIOLOGY: DO YOU HAVE A PACEMAKER OR DEFIBRILLATOR? NO . RESPIRATORY: HAVE YOU BEEN SICK IN THE PAST WEEK? NO . FEVER NO . FLU LIKE SYMPTOMS? NO . COUGH NO . INTEGUMENTARY: DO YOU HAVE ANY RASHES OR OPEN SORES? NO . ALLERGIC/IMMUNO: ARE YOU ALLERGIC TO IV DYE? NO . ANY NEW ALLERGIES? NO . PSYCHIATRIC: DO YOU HAVE THOUGHTS OF HURTING YOURSELF OR SOMEONE ELSE? NO . ARE YOU ABUSED, NEGLECTED, OR IN AN UNSAFE ENVIRONMENT? NO . ENDOCRINOLOGY: ARE YOU DIABETIC? NO . OTHER: DO YOU NEED ANY PRESCRIPTIONS? NO . IF YES, PLEASE LIST: ____ . ANY NEW PROBLEMS WITH YOUR MEDICATIONS? NO . WHEN DID YOU LAST EAT? ____/ . WHEN DID YOU LAST DRINK? ____729 . WHAT DID YOU LAST DRINK? ____WATER WITH MEDICATIONS . NAME OF PERSON DRIVING YOU HOME? ____KEND . DO YOU HAVE ANY OTHER QUESTIONS OR CONCERNS NO . VITAL SIGNS WT 208.2 LBS, HT 64 IN, BMI 35.73 INDEX, BP 124/79 MM HG, HR 133 /MIN, RR 18 /MIN, TEMP 96.5 F, OXYGEN SAT % 97%, SAFE IN ENV? (Y/N) YES, NA INITIALS AR 09:15, REVIEWED BY: DOMENIC. ASSESSMENTS INTERVERTEBRAL DISC DISORDER WITH RADICULOPATHY OF LUMBAR REGION - M51.16 (PRIMARY) TREATMENT INTERVERTEBRAL DISC DISORDER WITH RADICULOPATHY OF LUMBAR REGION [facility] FLUORO GUIDE SPINE INJECTION (PAIN)[id number] PROCEDURES PRE PROCEDURE DIAGNOSIS LUMBAR DISC DISORDER WITH RADICULOPATHY POST PROCEDURE DIAGNOSIS LUMBAR DISC DISORDER WITH RADICULOPATHY PROCEDURE LUMBAR EPIDURAL STEROID INJECTION UNDER FLUOROSCOPIC GUIDANCE SURGEON DR. JOHANN JOHNSON TIRE SPECIALIST NONE ANESTHESIA LOCAL PRE PROCEDURE NOTE THE PATIENT HAS A HISTORY OF CHRONIC LOW BACK PAIN. I EVALUATED THE PATIENT AND REVIEWED THE CHART. I WENT OVER THE RISKS, ALTERNATIVES, AND BENEFITS ASSOCIATED WITH THIS PROCEDURE. THE PATIENT WOULD LIKE TO PROCEED AND GIVES CONSENT TO PERFORM THE PROCEDURE. THE PATIENT DENIES UNEXPLAINABLE WEIGHT LOSS, FEVER, CHILLS, OR NEW CHANGES IN URINARY OR BOWEL CONTROL. DESCRIPTION OF PROCEDURE THE PATIENT WAS BROUGHT TO THE PROCEDURE ROOM AND PLACED IN THE PRONE POSITION. THE LUMBOSACRAL AREA WAS CLEANED WITH BETADINE SOLUTION AND DRAPED ASEPTICALLY. THE PROCEDURE WAS DONE UNDER STERILE CONDITIONS. I CHECKED LATERALITY AND THE LEVEL WHERE THE PROCEDURE WAS GOING TO BE PERFORMED WITH THE PATIENT AND THE SUPPORTING STAFF AT THE MOMENT OF THE TIME OUT IN THE PROCEDURE ROOM. UNDER FLUOROSCOPIC GUIDANCE, THE TARGET POINT WAS SELECTED AT THE INTERLAMINAR LEVEL OF L4-L5. LIDOCAINE WAS USED TO NUMB THE SKIN AND THE SUBCUTANEOUS TISSUE BELOW IT. EPIDURAL TUOHY NEEDLE, 17-GAUGE, WAS ADVANCED UNDER FLUOROSCOPIC GUIDANCE AND FOLLOWING PATIENT FEEDBACK UNTIL THE EPIDURAL SPACE WAS REACHED, 7 CM DEEP INTO THE SKIN BY THE LOSS OF RESISTANCE TECHNIQUE. ISOVUE M DYE 30%, 0.25 ML, WAS INJECTED SHOWING ADEQUATE SPREAD OF THE DYE. THEN, A SOLUTION OF 3 ML OF NORMAL SALINE WITH DEPO-MEDROL 60 MG WAS INJECTED SLOWLY FOLLOWING PATIENT FEEDBACK. THERE WAS NO EVIDENCE OF BLOOD, PARESTHESIA OR CEREBROSPINAL FLUID DURING THE PROCEDURE. THE PATIENT WAS SENT TO THE RECOVERY ROOM. THE PATIENT WAS MOVING THE EXTREMITIES AND DOING WELL. THERE WAS NO COMPLICATION DURING THE PROCEDURE. FLUOROSCOPY TIME WAS 10 SECONDS. POST PROCEDURE NOTE THE PATIENT WILL BE SEEN IN A FOLLOW UP IN THE NEXT FEW WEEKS. DEPENDING ON THE EPIDURAL RESULTS, I MAY CONSIDER TRYING ANOTHER EPIDURAL WITH A CATHETER NEXT TIME. INSTRUCTIONS WERE GIVEN, QUESTIONS WERE ANSWERED, AND THE PATIENT EXPRESSED UNDERSTANDING AND AGREES WITH THE PLAN. I, MITALI DAY, DOCUMENTED THE ABOVE INFORMATION ACTING A SCRIBE FOR DR. JOHNSON. I HAVE REVIEWED THE ABOVE DOCUMENT, WRITTEN BY MITALI ABARCA AND I VERIFY THAT IT IS ACCURATE. PROCEDURE CODES 03459 LUMBAR/SACRAL W/ IMAGING [id number] RADXPS IN END [id number] PXD DISPOSITION & COMMUNICATION FOLLOW UP 2 WEEKS ELECTRONICALLY SIGNED BY JOHANN JOHNSON MD, MD ON 04/12/2019 AT 12:39 PM EST DISCLAIMER : THIS IS A VISIT SUMMARY EXTRACTED FROM THE [employer] CHART. IT IS NOT A COPY OF THE [employer] PROGRESS NOTE. MTDD
== END ==
LOC: M PAIN 09:00
PROVIDERS: ATTEND Anesthesiology
DX: M51.16 Intervertebral disc disorders with radiculopathy, lumbar region (principal)
CPT/HCPCS: 62323; J1030; Q9967

== ENCOUNTER → 2019-05-24 | Outpatient (CLI) | payer OTHER ==
[~2019-05-24] MED LIST changes: -ISOVUE-M 300 61% 15ML VIAL (Q9967) As Ordered ONE; -LIDOCAINE 1% SDV INJ 30 ML VIAL As Ordered ONE; -diazePAM 5 MG TAB As Ordered ONE; -methylPREDNISolone SUSP 40 MG/ML (DEPO-medrol) VIAL (J1030) As Ordered ONE; -oxyCODONE 5MG TAB As Ordered ONE
--- NOTE | 2019-05-26 01:00 | ECWPNPC ---
PATIENT NAME: ELSIE KINGSTON : 1970 GENDER: FEMALE VISIT DATE: 05/24/2019 DISCHARGE DATE: 05/24/19 1502 VISIT LOCKED DATE TIME: PHYSICIAN: LICHA ARENAS RESOURCE: LICHA ARENAS REASON FOR APPOINTMENT 1. MVP-POST LESI HISTORY OF PRESENT ILLNESS HISTORY OF PRESENT ILLNESS: PAIN THE PATIENT DESCRIBES THE PAIN... 48-YEAR-OLD FEMALE IN FOR POST LESI FOLLOW-UP. SHE RATED HER PAIN PREPROCEDURE AT A 78 OUT OF 10 AND POSTPROCEDURE AT A 2 OUT OF 10 FURTHER STATING THAT THIS LASTED APPROXIMATELY ONE WEEK. SHE RATES HER PAIN CURRENTLY AT A 5 OUT OF 10 AND DESCRIBES IT ACHING, SHARP, BURNING, STABBING, SORE, SHOOTING, AND TENDER. FALL RISK SCREENING: SCREENING :NO FALLS REPORTED IN THE LAST YEAR CURRENT MEDICATIONS TAKING PRAZOSIN HCL 2 MG CAPSULE 1 CAPSULE AT BEDTIME ORALLY ONCE A DAY TAKING OMEPRAZOLE 40 MG CAPSULE DELAYED RELEASE 1 CAPSULE ORALLY ONCE A DAY TAKING ALPRAZOLAM 0.5 MG TABLET 1 TABLET ORALLY MDD2 TWICE A DAY TAKING BACLOFEN 10 MG TABLET 1 TABLET WITH FOOD OR MILK ORALLY TWICE A DAY NEEDED TAKING ASPIRIN 81 MG TABLET CHEWABLE 1 TABLET ORALLY ONCE A DAY TAKING TRAMADOL HCL 50 MG TABLET 1 TABLET NEEDED ORALLY EVERY 4-6 HRS TAKING VITAMIN C 500 MG CAPSULE 1 CAP ORALLY DAILY TAKING VENTOLIN HFA 108 (90 BASE) MCG/ACT AEROSOL SOLUTION 2 PUFFS NEEDED INHALATION EVERY 6 HRS TAKING VITAMIN B-12 500 MCG TABLET 1 TABLET ORALLY ONCE A DAY TAKING SYSTANE 0.4-0.3 % SOLUTION 1 DROP EACH EYE OPHTHALMIC DAILY NEEDED TAKING VALSARTAN 160 MG TABLET 1 TABLET ORALLY TWICE A DAY TAKING BUSPAR 10 MGS 1 TAB ORALLY TWICE DAILY TAKING HYDRALAZINE HCL 50 MG TABLET 1 TABLET WITH FOOD ORALLY THREE TIMES A DAY TAKING ABILIFY 5 MG TABLET 1 TABLET ORALLY ONCE A DAY TAKING RANITIDINE 150 MAX STRENGTH 150 MG TABLET 1 TAB ORALLY TWICE DAILY TAKING HYDROCHLOROTHIAZIDE 12.5 MG CAPSULE 1 CAPSULE IN THE MORNING ORALLY ONCE A DAY TAKING LABETALOL HCL 200 MG TABLET 1 TABLET ORALLY TWICE A DAY TAKING LOTEMAX 0.5 % OINTMENT 1 APPLICATION OPHTHALMIC FOUR TIMES DAILY NEEDED TAKING ANT MAG ZINC +D3 - TABLET (NO VIT D) DIRECTED ORALLY DAILY TAKING GABAPENTIN 300 MG CAPSULE 1 TAB IN THE MORNING AND AFTERNOON AND 2 AT BEDTIME ORALLY FOR PAIN THREE TIMES A DAY TAKING ARIPIPRAZOLE 10 MG TABLET 1 TABLET ORALLY TWICE A DAY TAKING NORVASC 5 MG TABLET 1 TABLET ORALLY BID NEEDED TAKING NAPROXEN 500 MG TABLET DELAYED RELEASE 1 TABLET ORALLY TWICE A DAY TAKING KLOR-CON 10 10 MEQ TABLET EXTENDED RELEASE 1 TABLET WITH FOOD ORALLY TWICE A DAY TAKING METOPROLOL SUCCINATE ER 100 MG TABLET EXTENDED RELEASE 24 HOUR 1 TABLET ORALLY ONCE A DAY MEDICATION LIST REVIEWED AND RECONCILED WITH THE PATIENT PAST MEDICAL HISTORY ANGINA IRREGULAR HEART BEAT PULMONARY 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 HYPERTENSION DAKOTAH-UNABLE TO TOLERATE CPAP ASTHMA BACK AND LEFT LEG PAIN ARTHRITIS GERD SEVERE NOSE BLEED ALLERGIES LATEX (FOR ALLERGY USE ONLY): DIFFICULTY BREATHING, ITCHING - ALLERGY ENVIRONMENTAL: SINUS CONGESTION, COUGH - ALLERGY SURGICAL HISTORY RIGHT ROTATOR CUFF REPAIR 08/2017, 12/2017 ARTHROSCOPY BILARTERAL KNEES SCREWS LEFT KNEE 2007 CHOLECYSTECTOMY 2010 TEAR DUCT OPENED A BABY LEFT CARPAL TUNNEL REPAIR 2007 TONSILLECTOMY AGE 12 D&C X 4 FAMILY HISTORY FATHER: NO KNOWN HISTORY ON FATHER MOTHER: ALIVE, DIAGNOSED WITH HYPERTENSION SIBLINGS: 1DAUGHTER(S) - HEALTHY. OLDEST [id number] PROBLEMS.YOUNGEST BROTHER FROM LOGGING ACCIDENT. SOCIAL HISTORY GENERAL: TOBACCO USE ARE YOU A:NONSMOKER EDUCATION LEVEL OF EDUCATION:HIGH SCHOOL DIET: REGULAR. LANGUAGE LANGUAGES SPOKEN:ANDORRAN DOMESTIC VIOLENCE DO YOU FEEL SAFE IN YOUR ENVIRONMENT?YES RECREATIONAL DRUG USE DRUG USE?NO EXERCISE: NONE. 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 N/A HAS THE PATIENT BEEN EDUCATED REGARDING HIS/HER PLAN OF CARE?YES HAS THE PATIENT BEEN EDUCATED REGARDING PAIN, THE RISK FOR PAIN, THE IMPORTANCE OF EFFECTIVE PAIN MANAGEMENT, AND THE PAIN ASSESSMENT PROCESS?YES LATEX QUESTIONNAIRE LATEX ALLERGY : HAVE YOU EVER DEVELOPED ANY TYPE OF REACTION AFTER HANDLING LATEX PRODUCTS SUCH RUBBER GLOVES, CONDOMS, DIAPHRAGMS, BALLOONS, SOCKS, OR UNDERWEAR?YES LATEX ALLERGY : HAVE YOU EVER DEVELOPED ANY TYPE OF REACTION DURING OR AFTER DENTAL APPOINTMENT, VAGINAL/RECTAL EXAMINATION, SURGICAL PROCEDURE, OR ANY OTHER EXPOSURE?NO - PLEASE INDICATE :RUBBER GLOVES, OTHER (DOCUMENT IN NOTES) LATEX ALLERGY DATE ASKED : 04/05/2019 LATEX RISK : HAVE YOU EVER HAD ANY DIFFICULTY BREATHING OR HIVES AFTER EATING OR HANDLING ANY FRUITS, OR VEGETABLES; SUCH KIWI, BANANAS, STONE FRUITS, OR CHESTNUTSNO LATEX RISK : DO YOU HAVE A PREVIOUS PERSONAL HISTORY OF MORE THAN NINE SURGERIES, SPINA BIFIDA, OR REPEATED CATHERIZATIONS? YES - PLEASE INDICATE : > 9 SURGERIES LATEX RISK : ARE YOU FREQUENTLY EXPOSED TO LATEX PRODUCTS IN YOUR OCCUPATION?NO ADVANCE DIRECTIVE ADVANCE DIRECTIVE DISCUSSED WITH PATIENT:YES [id number] KINGSTON [phone] SIKH [id number] SCIENTOLOGIST MARITAL STATUS: SINGLE. ALCOHOL SCREENING DID YOU HAVE A DRINK CONTAINING ALCOHOL IN THE PAST YEAR?YES HOW OFTEN DID YOU HAVE SIX OR MORE DRINKS ON ONE OCCASION IN THE PAST YEAR?NEVER (0 POINTS) HOW MANY DRINKS DID YOU HAVE ON A TYPICAL DAY WHEN YOU WERE DRINKING IN THE PAST YEAR?3 OR 4 (1 POINT) HOW OFTEN DID YOU HAVE A DRINK CONTAINING ALCOHOL IN THE PAST YEAR?MONTHLY OR LESS (1 POINT) POINTS2 INTERPRETATIONNEGATIVE OCCUPATION: DISABLED. HOSPITALIZATION/MAJOR DIAGNOSTIC PROCEDURE SHOULDER SURGERY 08/2017,12/2017 PULMONARY EMBOLISM 02/2019 CHILDBIRTH SEVERE NOSE BLEED 10/13- REVIEW OF SYSTEMS REVIEWED BY: PROVIDER: LYNN KAUR . CONSTITUTIONAL: ANY CHANGE IN YOUR MEDICAL CONDITION? NO . CHILLS NO . FEVER NO . INFECTION: DO YOU HAVE NEW INFECTIONS? NO . DO YOU HAVE HISTORY OF MRSA? NO . MUSCULOSKELETAL: ANY NEW PATTERNS OF PAIN OR NUMBNESS? NO . GASTROENTEROLOGY: ANY NEW CHANGE IN BOWEL CONTROL? NO . GENITOURINARY: ANY NEW CHANGE IN BLADDER CONTROL? NO . IS THERE A CHANCE YOU COULD BE ? NO . HEMATOLOGY/LYMPH: DO YOU TAKE ANY BLOOD THINNERS? (FOR EXAMPLE- COUMADIN, PLAVIX, AGGRENOX, PLATEL, PRADAXA, OR XARELTO) NO . WHEN WAS YOUR LAST DOSE? DATE: TIME: . NEUROLOGY: HAVE YOU FALLEN IN THE PAST 12 MONTHS? NO . ANY NEW EXTREMITY NUMBNESS OR WEAKNESS? NO . CARDIOLOGY: DO YOU HAVE A PACEMAKER OR DEFIBRILLATOR? NO . RESPIRATORY: HAVE YOU BEEN SICK IN THE PAST WEEK? NO . FEVER NO . FLU LIKE SYMPTOMS? NO . COUGH NO . INTEGUMENTARY: DO YOU HAVE ANY RASHES OR OPEN SORES? NO . ALLERGIC/IMMUNO: ARE YOU ALLERGIC TO IV DYE? NO . ANY NEW ALLERGIES? NO . PSYCHIATRIC: DO YOU HAVE THOUGHTS OF HURTING YOURSELF OR SOMEONE ELSE? NO . ARE YOU ABUSED, NEGLECTED, OR IN AN UNSAFE ENVIRONMENT? NO . ENDOCRINOLOGY: ARE YOU DIABETIC? NO . OTHER: DO YOU NEED ANY PRESCRIPTIONS? NO . IF YES, PLEASE LIST: ____ . ANY NEW PROBLEMS WITH YOUR MEDICATIONS? NO . WHEN DID YOU LAST EAT? ____ . WHEN DID YOU LAST DRINK? ____ . WHAT DID YOU LAST DRINK? ____ . NAME OF PERSON DRIVING YOU HOME? ____ . DO YOU HAVE ANY OTHER QUESTIONS OR CONCERNS NO . VITAL SIGNS WT 209 LBS, HT 64 IN, BMI 35.87 INDEX, BP 139/75 MM HG, HR 111 /MIN, RR 18 /MIN, TEMP 99.1 F, OXYGEN SAT % 96%, NA INITIALS SC 14:39, REVIEWED BY: VENTURA. EXAMINATION GENERAL EXAMINATION: GENERALNO ACUTE DISTRESS, WELL NOURISHED AND HYDRATED. PSYCHAPPROPRIATE MOOD AND AFFECT . LUNGS:CLEAR TO AUSCULTATION BILATERALLY, NO WHEEZES, RHONCHI, RALES. HEART:NO MURMURS, REGULAR RATE AND RHYTHM. BACK:POINT TENDER ALONG LUMBAR SPINE, SURROUNDING SKIN SHOWS NO ERYTHEMA, ECCHYMOSIS, INCREASED WARMTH, AND/OR SKIN ERUPTIONS NOTED. POSITIVE MODIFIED SLR BILATERALLY . MUSCULOSKELETAL:EQUAL STRENGTH OF THE LOWER EXTREMITIES BILATERALLY . ASSESSMENTS INTERVERTEBRAL DISC DISORDER WITH RADICULOPATHY OF LUMBAR REGION - M51.16 (PRIMARY) TREATMENT INTERVERTEBRAL DISC DISORDER WITH RADICULOPATHY OF LUMBAR REGION NOTES: LESI WITH CATHETER L4-L5 L5-S1. CLINICAL NOTES: 48-YEAR-OLD FEMALE IN FOR POST LESI FOLLOW-UP. GIVEN PRESENTING SYMPTOMS AND RESULTS OF PHYSICAL EXAMINATION RECOMMENDED LESI WITH CATHETER L4-L5 AND POST PROCEDURAL FOLLOW-UP. LESI WITH CATHETER ALLOWS US TO GET CLOSER TO PATHOLOGY WHICH INCREASES THE CHANCE OF REDUCTION IN PAIN AND INCREASED FUNCTIONALITY. PATIENT HAS EXPRESSED UNDERSTANDING OF AND WAS IN AGREEMENT WITH TREATMENT PLAN. GIVEN TIME TO ASK QUESTIONS AND EXPRESS CONCERNS.. PROCEDURE CODES FA211 ESTABILISHED PATIENT [facility] CHARGE DISPOSITION & COMMUNICATION FOLLOW UP POSTPROCEDURE (REASON: LESI WITH CATHETER L4-L5) ELECTRONICALLY SIGNED BY MIRACLE CAMARENA ON 05/25/2019 AT 03:15 PM EST DISCLAIMER : THIS IS A VISIT SUMMARY EXTRACTED FROM THE [employer] CHART. IT IS NOT A COPY OF THE [employer] PROGRESS NOTE. MANDY
== END ==
LOC: M PAIN 14:30
PROVIDERS: ATTEND Family Medicine
DX: M51.16 Intervertebral disc disorders with radiculopathy, lumbar region (principal)

== ENCOUNTER → 2019-07-03 | Outpatient (CLI) | payer OTHER ==
[~2019-07-03] MED LIST changes: +ISOVUE-M 300 61% 15ML VIAL (Q9967) As Ordered ONE; +LIDOCAINE 1% SDV INJ 30 ML VIAL As Ordered ONE; +diazePAM 5 MG TAB As Ordered ONE; +methylPREDNISolone SUSP 40 MG/ML (DEPO-medrol) VIAL (J1030) As Ordered ONE; +oxyCODONE 5MG TAB As Ordered ONE
--- NOTE | 2019-07-03 13:33 | REP ---
Partial lumbar spine series: Two views . History: Injection procedure for pain. 28 seconds of fluoroscopy time is reported. Findings: A sequence of two fluoroscopically obtained last image hold procedural spot radiographs of the lumbar spine document needle position and contrast injection associated with injection procedure. Electronically Signed by Broderick Jackson MD 07/03/2019 01:25 P
--- NOTE | 2019-07-07 03:35 | ECWPNPC ---
PATIENT NAME: ELISE KINGSTON : 1970 GENDER: FEMALE VISIT DATE: 07/03/2019 DISCHARGE DATE: 07/03/19 1130 VISIT LOCKED DATE TIME: PHYSICIAN: JOHANN JOHNSON MD RESOURCE: JOHANN JOHNSON MD REASON FOR APPOINTMENT 1. GAMAL WITH CATHETER L4-L5 HISTORY OF PRESENT ILLNESS HISTORY OF PRESENT ILLNESS: PAIN THE PATIENT DESCRIBES THE PAIN... FALL RISK SCREENING: SCREENING :NO FALLS REPORTED IN THE LAST YEAR CURRENT MEDICATIONS TAKING PRAZOSIN HCL 2 MG CAPSULE 1 CAPSULE AT BEDTIME ORALLY ONCE A DAY, NOTES: 07/03 729 TAKING OMEPRAZOLE 40 MG CAPSULE DELAYED RELEASE 1 CAPSULE ORALLY ONCE A DAY, NOTES: 07/03 729 TAKING ALPRAZOLAM 0.5 MG TABLET 1 TABLET ORALLY MDD2 TWICE A DAY, NOTES: 07/03 729 TAKING BACLOFEN 10 MG TABLET 1 TABLET WITH FOOD OR MILK ORALLY TWICE A DAY NEEDED, NOTES: 07/03 729 TAKING ASPIRIN 81 MG TABLET CHEWABLE 1 TABLET ORALLY ONCE A DAY, NOTES: 07/03 729 TAKING TRAMADOL HCL 50 MG TABLET 1 TABLET NEEDED ORALLY EVERY 4-6 HRS, NOTES: NONE RECENT TAKING VITAMIN C 500 MG CAPSULE 1 CAP ORALLY DAILY, NOTES: 07/03 729 TAKING VENTOLIN HFA 108 (90 BASE) MCG/ACT AEROSOL SOLUTION 2 PUFFS NEEDED INHALATION EVERY 6 HRS, NOTES: NONE RECENT TAKING VITAMIN B-12 500 MCG TABLET 1 TABLET ORALLY ONCE A DAY, NOTES: 07/03 729 TAKING SYSTANE 0.4-0.3 % SOLUTION 1 DROP EACH EYE OPHTHALMIC DAILY NEEDED, NOTES: NONE RECENT TAKING VALSARTAN 160 MG TABLET 1 TABLET ORALLY TWICE A DAY, NOTES: 07/03 729 TAKING BUSPAR 10 MGS 1 TAB ORALLY TWICE DAILY, NOTES: 07/03 729 TAKING HYDRALAZINE HCL 50 MG TABLET 1 TABLET WITH FOOD ORALLY THREE TIMES A DAY, NOTES: 07/03 729 TAKING ABILIFY 5 MG TABLET 1 TABLET ORALLY ONCE A DAY, NOTES: 07/03 729 TAKING RANITIDINE 150 MAX STRENGTH 150 MG TABLET 1 TAB ORALLY TWICE DAILY, NOTES: 07/03 729 TAKING HYDROCHLOROTHIAZIDE 12.5 MG CAPSULE 1 CAPSULE IN THE MORNING ORALLY ONCE A DAY, NOTES: 07/03 729 TAKING LABETALOL HCL 200 MG TABLET 1 TABLET ORALLY TWICE A DAY, NOTES: 07/03 729 TAKING ANT MAG ZINC +D3 - TABLET (NO VIT D) DIRECTED ORALLY DAILY, NOTES: 07/03 729 TAKING GABAPENTIN 300 MG CAPSULE 1 TAB IN THE MORNING AND AFTERNOON AND 2 AT BEDTIME ORALLY FOR PAIN THREE TIMES A DAY, NOTES: 07/03 729 TAKING ARIPIPRAZOLE 10 MG TABLET 1 TABLET ORALLY TWICE A DAY, NOTES: 07/03 729 TAKING NORVASC 5 MG TABLET 1 TABLET ORALLY BID NEEDED, NOTES: 07/03/729 TAKING NAPROXEN 500 MG TABLET DELAYED RELEASE 1 TABLET ORALLY TWICE A DAY, NOTES: 07/03 729 TAKING KLOR-CON 10 10 MEQ TABLET EXTENDED RELEASE 1 TABLET WITH FOOD ORALLY TWICE A DAY, NOTES: 07/03 729 TAKING METOPROLOL SUCCINATE ER 100 MG TABLET EXTENDED RELEASE 24 HOUR 1 TABLET ORALLY ONCE A DAY, NOTES: 07/03 729 NOT-TAKING LOTEMAX 0.5 % OINTMENT 1 APPLICATION OPHTHALMIC FOUR TIMES DAILY NEEDED MEDICATION LIST REVIEWED AND RECONCILED WITH THE PATIENT PAST MEDICAL HISTORY ANGINA PULMONARY 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 HYPERTENSION DAKOTAH-UNABLE TO TOLERATE CPAP ASTHMA BACK AND LEFT LEG PAIN ARTHRITIS GERD SEVERE NOSE BLEED ALLERGIES LATEX (FOR ALLERGY USE ONLY): DIFFICULTY BREATHING, ITCHING - ALLERGY ENVIRONMENTAL: SINUS CONGESTION, COUGH - ALLERGY SURGICAL HISTORY RIGHT ROTATOR CUFF REPAIR 08/2017, 12/2017 ARTHROSCOPY BILARTERAL KNEES SCREWS LEFT KNEE 2007 CHOLECYSTECTOMY 2010 TEAR DUCT OPENED A BABY LEFT CARPAL TUNNEL REPAIR 2007 TONSILLECTOMY AGE 12 D&C X 4 FAMILY HISTORY FATHER: NO KNOWN HISTORY ON FATHER MOTHER: ALIVE, DIAGNOSED WITH HYPERTENSION SIBLINGS: 1DAUGHTER(S) - HEALTHY. OLDEST [id number] PROBLEMS.YOUNGEST BROTHER FROM LOGGING ACCIDENT. SOCIAL HISTORY GENERAL: TOBACCO USE ARE YOU A:NONSMOKER EDUCATION LEVEL OF EDUCATION:HIGH SCHOOL DIET: REGULAR. LANGUAGE LANGUAGES SPOKEN:BURKINAN DOMESTIC VIOLENCE DO YOU FEEL SAFE IN YOUR ENVIRONMENT?YES RECREATIONAL DRUG USE DRUG USE?NO EXERCISE: NONE. LEARNING BARRIERS / SPECIAL NEEDS BARRIERS TO LEARNING?NO HEARING IMPAIRED?NO VISION IMPAIRED?YES COGNITIVELY IMPAIRED?NO :CORRECTIVE LENSES READINESS TO LEARN?YES LEARNING PREFERENCES?NO LEARNING CAPABILITIES PRESENT?YES EMOTIONAL BARRIERS?NO SPECIAL DEVICES?YES :CANE TOOL KEEPER NEEDED?NO PAIN CLINIC PFS, CLERGY, PUBLIC HEALTH REFERRALS PFS REFERRAL NEEDED?NO CLERGY REFERRAL NEEDED?NO PUBLIC HEALTH REFERRAL NEEDED?NO WAS THE PROVIDER NOTIFIED OF ANY PERTINENT INFO? N/A HAS THE PATIENT BEEN EDUCATED REGARDING HIS/HER PLAN OF CARE?YES HAS THE PATIENT BEEN EDUCATED REGARDING PAIN, THE RISK FOR PAIN, THE IMPORTANCE OF EFFECTIVE PAIN MANAGEMENT, AND THE PAIN ASSESSMENT PROCESS?YES LATEX QUESTIONNAIRE LATEX ALLERGY : HAVE YOU EVER DEVELOPED ANY TYPE OF REACTION AFTER HANDLING LATEX PRODUCTS SUCH RUBBER GLOVES, CONDOMS, DIAPHRAGMS, BALLOONS, SOCKS, OR UNDERWEAR?YES - PLEASE INDICATE :RUBBER GLOVES, OTHER (DOCUMENT IN NOTES) LATEX ALLERGY LATEX ALLERGY : HAVE YOU EVER DEVELOPED ANY TYPE OF REACTION DURING OR AFTER DENTAL APPOINTMENT, VAGINAL/RECTAL EXAMINATION, SURGICAL PROCEDURE, OR ANY OTHER EXPOSURE?NO LATEX RISK : HAVE YOU EVER HAD ANY DIFFICULTY BREATHING OR HIVES AFTER EATING OR HANDLING ANY FRUITS, OR VEGETABLES; SUCH KIWI, BANANAS, STONE FRUITS, OR CHESTNUTSNO LATEX RISK : DO YOU HAVE A PREVIOUS PERSONAL HISTORY OF MORE THAN NINE SURGERIES, SPINA BIFIDA, OR REPEATED CATHERIZATIONS? YES - PLEASE INDICATE : > 9 SURGERIES LATEX RISK : ARE YOU FREQUENTLY EXPOSED TO LATEX PRODUCTS IN YOUR OCCUPATION?NO DATE ASKED : 04/05/2019 ADVANCE DIRECTIVE ADVANCE DIRECTIVE DISCUSSED WITH PATIENT:YES TQI-UTR-OSLOEJEN KINGSTON [phone] EPISCOPALIAN [id number] BAPTIST MARITAL STATUS: SINGLE. ALCOHOL SCREENING DID YOU HAVE A DRINK CONTAINING ALCOHOL IN THE PAST YEAR?YES HOW OFTEN DID YOU HAVE SIX OR MORE DRINKS ON ONE OCCASION IN THE PAST YEAR?NEVER (0 POINTS) HOW MANY DRINKS DID YOU HAVE ON A TYPICAL DAY WHEN YOU WERE DRINKING IN THE PAST YEAR?3 OR 4 (1 POINT) HOW OFTEN DID YOU HAVE A DRINK CONTAINING ALCOHOL IN THE PAST YEAR?MONTHLY OR LESS (1 POINT) POINTS2 INTERPRETATIONNEGATIVE OCCUPATION: DISABLED. PRE-SCREENING COMPLETED 06/29/2019 1119 JS. HOSPITALIZATION/MAJOR DIAGNOSTIC PROCEDURE SHOULDER SURGERY 08/2017,12/2017 PULMONARY EMBOLISM 02/2019 CHILDBIRTH SEVERE NOSE BLEED 10/13- REVIEW OF SYSTEMS REVIEWED BY: PROVIDER: . CONSTITUTIONAL: ANY CHANGE IN YOUR MEDICAL CONDITION? NO . CHILLS NO . FEVER NO . INFECTION: DO YOU HAVE NEW INFECTIONS? NO . DO YOU HAVE HISTORY OF MRSA? NO . MUSCULOSKELETAL: ANY NEW PATTERNS OF PAIN OR NUMBNESS? NO . GASTROENTEROLOGY: ANY NEW CHANGE IN BOWEL CONTROL? NO . GENITOURINARY: ANY NEW CHANGE IN BLADDER CONTROL? NO . IS THERE A CHANCE YOU COULD BE ? NO . HEMATOLOGY/LYMPH: DO YOU TAKE ANY BLOOD THINNERS? (FOR EXAMPLE- COUMADIN, PLAVIX, AGGRENOX, PLATEL, PRADAXA, OR XARELTO) NO . WHEN WAS YOUR LAST DOSE? DATE: TIME: . NEUROLOGY: HAVE YOU FALLEN IN THE PAST 12 MONTHS? YES, PT STATES SHE HAD A FALL LAST SEPTEMBER, DUE TO RIGHT LEG GIVING OUT ON HER. DENIES ANY INJURIES OR ED VISIT WITH FALL AND DENIES ANY FALLS SINCE THEN. . ANY NEW EXTREMITY NUMBNESS OR WEAKNESS? YES, INCREASING WEAKNESS IN BILATERAL LEGS . CARDIOLOGY: DO YOU HAVE A PACEMAKER OR DEFIBRILLATOR? NO . RESPIRATORY: HAVE YOU BEEN SICK IN THE PAST WEEK? NO . FEVER NO . FLU LIKE SYMPTOMS? NO . COUGH NO . INTEGUMENTARY: DO YOU HAVE ANY RASHES OR OPEN SORES? NO . ALLERGIC/IMMUNO: ARE YOU ALLERGIC TO IV DYE? NO . ANY NEW ALLERGIES? NO . PSYCHIATRIC: DO YOU HAVE THOUGHTS OF HURTING YOURSELF OR SOMEONE ELSE? NO . ARE YOU ABUSED, NEGLECTED, OR IN AN UNSAFE ENVIRONMENT? NO . ENDOCRINOLOGY: ARE YOU DIABETIC? NO . OTHER: DO YOU NEED ANY PRESCRIPTIONS? NO . IF YES, PLEASE LIST: ____ . ANY NEW PROBLEMS WITH YOUR MEDICATIONS? NO . WHEN DID YOU LAST EAT? 07/02 1929 . WHEN DID YOU LAST DRINK? 07/03 729 . WHAT DID YOU LAST DRINK? WATER . NAME OF PERSON DRIVING YOU HOME? MOM, JEN . DO YOU HAVE ANY OTHER QUESTIONS OR CONCERNS NO . VITAL SIGNS WT 208.2 LBS, HT 64 IN, BMI 35.73 INDEX, BP 120/70 MANUAL, HR 78 /MIN, RR 18 /MIN, TEMP 97.0 F, OXYGEN SAT % 98%, NA INITIALS AW 0926, REVIEWED BY: BV. ASSESSMENTS INTERVERTEBRAL DISC DISORDER WITH RADICULOPATHY OF LUMBAR REGION - M51.16 (PRIMARY) TREATMENT INTERVERTEBRAL DISC DISORDER WITH RADICULOPATHY OF LUMBAR REGION [facility] FLUORO GUIDE SPINE INJECTION (PAIN)[id number] PROCEDURES PRE PROCEDURE DIAGNOSIS LUMBAR DISC DISORDER WITH RADICULOPATHY POST PROCEDURE DIAGNOSIS LUMBAR DISC DISORDER WITH RADICULOPATHY PROCEDURE LUMBAR EPIDURAL STEROID INJECTION UNDER FLUOROSCOPIC GUIDANCE SURGEON DR. JOHANN JOHNSON SPECIAL DUTY NURSE NONE ANESTHESIA LOCAL PRE PROCEDURE NOTE THE PATIENT HAS A HISTORY OF CHRONIC LOW BACK PAIN. I EVALUATED THE PATIENT AND REVIEWED THE CHART. I WENT OVER THE RISKS, ALTERNATIVES, AND BENEFITS ASSOCIATED WITH THIS PROCEDURE. THE PATIENT WOULD LIKE TO PROCEED AND GIVES CONSENT TO PERFORM THE PROCEDURE. THE PATIENT DENIES UNEXPLAINABLE WEIGHT LOSS, FEVER, CHILLS, OR NEW CHANGES IN URINARY OR BOWEL CONTROL. DESCRIPTION OF PROCEDURE THE PATIENT WAS BROUGHT TO THE PROCEDURE ROOM AND PLACED IN THE PRONE POSITION. THE LUMBOSACRAL AREA WAS CLEANED WITH BETADINE SOLUTION AND DRAPED ASEPTICALLY. THE PROCEDURE WAS DONE UNDER STERILE CONDITIONS. I CHECKED LATERALITY AND THE LEVEL WHERE THE PROCEDURE WAS GOING TO BE PERFORMED WITH THE PATIENT AND THE SUPPORTING STAFF AT THE MOMENT OF THE TIME OUT IN THE PROCEDURE ROOM. UNDER FLUOROSCOPIC GUIDANCE, THE TARGET POINT WAS SELECTED AT THE INTERLAMINAR LEVEL OF L5-S1. LIDOCAINE WAS USED TO NUMB THE SKIN AND THE SUBCUTANEOUS TISSUE BELOW IT. EPIDURAL TUOHY NEEDLE, 16-GAUGE, WAS ADVANCED UNDER FLUOROSCOPIC GUIDANCE AND FOLLOWING PATIENT FEEDBACK UNTIL THE EPIDURAL SPACE WAS REACHED, 7 CM DEEP INTO THE SKIN BY THE LOSS OF RESISTANCE TECHNIQUE. I ADVANCED A 19-GAUGE EPIMED CATHETER THROUGH A 16-GAUGE NEEDLE TO THE LEFT OF L4-L5. ISOVUE M DYE 30%, 0.25 ML, WAS INJECTED SHOWING ADEQUATE SPREAD OF THE DYE. THEN, A SOLUTION OF 3 ML OF NORMAL SALINE WITH DEPO-MEDROL 60 MG WAS INJECTED SLOWLY FOLLOWING PATIENT FEEDBACK. THERE WAS NO EVIDENCE OF BLOOD, PARESTHESIA OR CEREBROSPINAL FLUID DURING THE PROCEDURE. THE PATIENT WAS SENT TO THE RECOVERY ROOM. THE PATIENT WAS MOVING THE EXTREMITIES AND DOING WELL. THERE WAS NO COMPLICATION DURING THE PROCEDURE. FLUOROSCOPY TIME WAS 28 SECONDS. POST PROCEDURE NOTE THE PATIENT WILL BE SEEN IN A FOLLOW UP IN THE NEXT FEW WEEKS. I AM LOOKING FOR LONG LASTING PAIN RELIEF WITH THIS INJECTION. INSTRUCTIONS WERE GIVEN, QUESTIONS WERE ANSWERED, AND THE PATIENT EXPRESSED UNDERSTANDING AND AGREES WITH THE PLAN. I, MITALI DAY, DOCUMENTED THE ABOVE INFORMATION ACTING A SCRIBE FOR DR. JOHNSON. I HAVE REVIEWED THE ABOVE DOCUMENT, WRITTEN BY MITALI ABARCA AND I VERIFY THAT IT IS ACCURATE. PROCEDURE CODES 33947 LUMBAR/SACRAL W/ IMAGING [id number] RADXPS IN END [id number] PXD DISPOSITION & COMMUNICATION FOLLOW UP 2 WEEKS ELECTRONICALLY SIGNED BY JOHANN JOHNSON MD, MD ON 07/06/2019 AT 11:45 AM EST DISCLAIMER : THIS IS A VISIT SUMMARY EXTRACTED FROM THE [employer] CHART. IT IS NOT A COPY OF THE PENDING SALE TO [facility]ALTHINICALRobert Applebaum MD PROGRESS NOTE. MTDD
== END ==
LOC: M PAIN 09:30
PROVIDERS: ATTEND Anesthesiology
DX: M51.16 Intervertebral disc disorders with radiculopathy, lumbar region (principal); Z86.711 Personal history of pulmonary embolism; I10 Essential (primary) hypertension; G47.33 Obstructive sleep apnea (adult) (pediatric); J45.909 Unspecified asthma, uncomplicated; K21.9 Gastro-esophageal reflux disease without esophagitis; Z91.040 Latex allergy status; Z79.82 Long term (current) use of aspirin; Z79.899 Other long term (current) drug therapy
CPT/HCPCS: 62323; J1030; Q9967

== ENCOUNTER → 2019-07-27 | Outpatient (CLI) | payer OTHER ==
[~2019-07-27] MED LIST changes: -ISOVUE-M 300 61% 15ML VIAL (Q9967) As Ordered ONE; -LIDOCAINE 1% SDV INJ 30 ML VIAL As Ordered ONE; -diazePAM 5 MG TAB As Ordered ONE; -methylPREDNISolone SUSP 40 MG/ML (DEPO-medrol) VIAL (J1030) As Ordered ONE; -oxyCODONE 5MG TAB As Ordered ONE
--- NOTE | 2019-07-31 02:23 | ECWPNPC ---
PATIENT NAME: ELISE KINGSTON : 1970 GENDER: FEMALE VISIT DATE: 07/27/2019 DISCHARGE DATE: 07/27/19 1446 VISIT LOCKED DATE TIME: PHYSICIAN: LICHA ARENAS RESOURCE: LICHA ARENAS REASON FOR APPOINTMENT 1. POST LESI-AT CHECK IN HISTORY OF PRESENT ILLNESS HISTORY OF PRESENT ILLNESS: PAIN THE PATIENT DESCRIBES THE PAIN... 48-YEAR-OLD FEMALE IN FOR POST LESI FOLLOW-UP. SHE RATES HER PAIN CURRENTLY AT A 6 OUT OF 10 AND DESCRIBES IT ACHING, BURNING, AND TENDER. PATIENT FEELS THE PROCEDURE WORKED WELL OVERALL RATING HER PAIN PREPROCEDURE AT A 9 OUT OF 10 AND POSTPROCEDURE AT A 2-4 OUT OF 10. SHE FURTHER STATES THE PROCEDURE CONTINUES TO HELP HER TODAY. FALL RISK SCREENING: SCREENING :NO FALLS REPORTED IN THE LAST YEAR CURRENT MEDICATIONS TAKING PRAZOSIN HCL 2 MG CAPSULE 1 CAPSULE AT BEDTIME ORALLY ONCE A DAY TAKING OMEPRAZOLE 40 MG CAPSULE DELAYED RELEASE 1 CAPSULE ORALLY ONCE A DAY TAKING ALPRAZOLAM 0.5 MG TABLET 1 TABLET ORALLY MDD2 TWICE A DAY TAKING BACLOFEN 10 MG TABLET 1 TABLET WITH FOOD OR MILK ORALLY TWICE A DAY NEEDED TAKING ASPIRIN 81 MG TABLET CHEWABLE 1 TABLET ORALLY ONCE A DAY TAKING TRAMADOL HCL 50 MG TABLET 1 TABLET NEEDED ORALLY EVERY 4-6 HRS TAKING VITAMIN C 500 MG CAPSULE 1 CAP ORALLY DAILY TAKING VENTOLIN HFA 108 (90 BASE) MCG/ACT AEROSOL SOLUTION 2 PUFFS NEEDED INHALATION EVERY 6 HRS TAKING VITAMIN B-12 500 MCG TABLET 1 TABLET ORALLY ONCE A DAY TAKING SYSTANE 0.4-0.3 % SOLUTION 1 DROP EACH EYE OPHTHALMIC DAILY NEEDED TAKING VALSARTAN 160 MG TABLET 1 TABLET ORALLY TWICE A DAY TAKING BUSPAR 10 MGS 1 TAB ORALLY TWICE DAILY TAKING HYDRALAZINE HCL 50 MG TABLET 1 TABLET WITH FOOD ORALLY THREE TIMES A DAY TAKING ABILIFY 5 MG TABLET 1 TABLET ORALLY ONCE A DAY TAKING RANITIDINE 150 MAX STRENGTH 150 MG TABLET 1 TAB ORALLY TWICE DAILY TAKING HYDROCHLOROTHIAZIDE 12.5 MG CAPSULE 1 CAPSULE IN THE MORNING ORALLY ONCE A DAY TAKING LABETALOL HCL 200 MG TABLET 1 TABLET ORALLY TWICE A DAY TAKING ANT MAG ZINC +D3 - TABLET (NO VIT D) DIRECTED ORALLY DAILY TAKING GABAPENTIN 300 MG CAPSULE 1 TAB IN THE MORNING AND AFTERNOON AND 2 AT BEDTIME ORALLY FOR PAIN THREE TIMES A DAY TAKING ARIPIPRAZOLE 10 MG TABLET 1 TABLET ORALLY TWICE A DAY TAKING NORVASC 5 MG TABLET 1 TABLET ORALLY BID NEEDED TAKING NAPROXEN 500 MG TABLET DELAYED RELEASE 1 TABLET ORALLY TWICE A DAY TAKING KLOR-CON 10 10 MEQ TABLET EXTENDED RELEASE 1 TABLET WITH FOOD ORALLY TWICE A DAY TAKING METOPROLOL SUCCINATE ER 100 MG TABLET EXTENDED RELEASE 24 HOUR 1 TABLET ORALLY ONCE A DAY NOT-TAKING LOTEMAX 0.5 % OINTMENT 1 APPLICATION OPHTHALMIC FOUR TIMES DAILY NEEDED MEDICATION LIST REVIEWED AND RECONCILED WITH THE PATIENT PAST MEDICAL HISTORY ANGINA PULMONARY 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 HYPERTENSION DAKOTAH-UNABLE TO TOLERATE CPAP ASTHMA BACK AND LEFT LEG PAIN ARTHRITIS GERD SEVERE NOSE BLEED ALLERGIES LATEX (FOR ALLERGY USE ONLY): DIFFICULTY BREATHING, ITCHING - ALLERGY ENVIRONMENTAL: SINUS CONGESTION, COUGH - ALLERGY SURGICAL HISTORY RIGHT ROTATOR CUFF REPAIR 08/2017, 12/2017 ARTHROSCOPY BILARTERAL KNEES SCREWS LEFT KNEE 2007 CHOLECYSTECTOMY 2010 TEAR DUCT OPENED A BABY LEFT CARPAL TUNNEL REPAIR 2006 TONSILLECTOMY AGE 12 D&C X 4 FAMILY HISTORY FATHER: NO KNOWN HISTORY ON FATHER MOTHER: ALIVE, DIAGNOSED WITH HYPERTENSION SIBLINGS: 1DAUGHTER(S) - HEALTHY. OLDEST [id number] PROBLEMS.YOUNGEST BROTHER FROM LOGGING ACCIDENT. SOCIAL HISTORY GENERAL: TOBACCO USE ARE YOU A:NONSMOKER EDUCATION LEVEL OF EDUCATION:HIGH SCHOOL DIET: REGULAR. LANGUAGE LANGUAGES SPOKEN:SPANISH DOMESTIC VIOLENCE DO YOU FEEL SAFE IN YOUR ENVIRONMENT?YES RECREATIONAL DRUG USE DRUG USE?NO EXERCISE: NONE. LEARNING BARRIERS / SPECIAL NEEDS BARRIERS TO LEARNING?NO HEARING IMPAIRED?NO VISION IMPAIRED?YES COGNITIVELY IMPAIRED?NO :CORRECTIVE LENSES READINESS TO LEARN?YES LEARNING PREFERENCES?NO LEARNING CAPABILITIES PRESENT?YES EMOTIONAL BARRIERS?NO SPECIAL DEVICES?YES :CANE TELEPHONE INTERVIEWER NEEDED?NO PAIN CLINIC PFS, CLERGY, PUBLIC HEALTH REFERRALS PFS REFERRAL NEEDED?NO CLERGY REFERRAL NEEDED?NO PUBLIC HEALTH REFERRAL NEEDED?NO WAS THE PROVIDER NOTIFIED OF ANY PERTINENT INFO? N/A HAS THE PATIENT BEEN EDUCATED REGARDING HIS/HER PLAN OF CARE?YES HAS THE PATIENT BEEN EDUCATED REGARDING PAIN, THE RISK FOR PAIN, THE IMPORTANCE OF EFFECTIVE PAIN MANAGEMENT, AND THE PAIN ASSESSMENT PROCESS?YES LATEX QUESTIONNAIRE LATEX ALLERGY : HAVE YOU EVER DEVELOPED ANY TYPE OF REACTION AFTER HANDLING LATEX PRODUCTS SUCH RUBBER GLOVES, CONDOMS, DIAPHRAGMS, BALLOONS, SOCKS, OR UNDERWEAR?YES LATEX ALLERGY : HAVE YOU EVER DEVELOPED ANY TYPE OF REACTION DURING OR AFTER DENTAL APPOINTMENT, VAGINAL/RECTAL EXAMINATION, SURGICAL PROCEDURE, OR ANY OTHER EXPOSURE?NO - PLEASE INDICATE :RUBBER GLOVES, OTHER (DOCUMENT IN NOTES) LATEX ALLERGY DATE ASKED : 04/05/2019 LATEX RISK : HAVE YOU EVER HAD ANY DIFFICULTY BREATHING OR HIVES AFTER EATING OR HANDLING ANY FRUITS, OR VEGETABLES; SUCH KIWI, BANANAS, STONE FRUITS, OR CHESTNUTSNO LATEX RISK : DO YOU HAVE A PREVIOUS PERSONAL HISTORY OF MORE THAN NINE SURGERIES, SPINA BIFIDA, OR REPEATED CATHERIZATIONS? YES - PLEASE INDICATE : > 9 SURGERIES LATEX RISK : ARE YOU FREQUENTLY EXPOSED TO LATEX PRODUCTS IN YOUR OCCUPATION?NO ADVANCE DIRECTIVE ADVANCE DIRECTIVE DISCUSSED WITH PATIENT:YES [id number] KINGSTON [phone] HINDU [id number] CHURCH MARITAL STATUS: SINGLE. ALCOHOL SCREENING DID YOU HAVE A DRINK CONTAINING ALCOHOL IN THE PAST YEAR?YES HOW OFTEN DID YOU HAVE SIX OR MORE DRINKS ON ONE OCCASION IN THE PAST YEAR?NEVER (0 POINTS) HOW MANY DRINKS DID YOU HAVE ON A TYPICAL DAY WHEN YOU WERE DRINKING IN THE PAST YEAR?3 OR 4 (1 POINT) HOW OFTEN DID YOU HAVE A DRINK CONTAINING ALCOHOL IN THE PAST YEAR?MONTHLY OR LESS (1 POINT) POINTS2 INTERPRETATIONNEGATIVE OCCUPATION: DISABLED. PRE-SCREENING COMPLETED 06/29/2019 1119 JS. HOSPITALIZATION/MAJOR DIAGNOSTIC PROCEDURE SHOULDER SURGERY 08/2017,12/2017 PULMONARY EMBOLISM 02/2019 CHILDBIRTH SEVERE NOSE BLEED 10/13- REVIEW OF SYSTEMS REVIEWED BY: PROVIDER: LYNN RAUSCH-Shalom . CONSTITUTIONAL: ANY CHANGE IN YOUR MEDICAL CONDITION? YES, THE FLU, PT WAS SEEN AT [facility] ER AND TX'D WITH IV FLUIDS AND PLACED ON ABX PO. . CHILLS NO . FEVER NO . INFECTION: DO YOU HAVE NEW INFECTIONS? YES, UIR AND FLU RESOLVED . DO YOU HAVE HISTORY OF MRSA? NO . MUSCULOSKELETAL: ANY NEW PATTERNS OF PAIN OR NUMBNESS? YES, PAIN IS THE SAME . GASTROENTEROLOGY: ANY NEW CHANGE IN BOWEL CONTROL? NO . GENITOURINARY: ANY NEW CHANGE IN BLADDER CONTROL? NO . IS THERE A CHANCE YOU COULD BE ? NO . HEMATOLOGY/LYMPH: DO YOU TAKE ANY BLOOD THINNERS? (FOR EXAMPLE- COUMADIN, PLAVIX, AGGRENOX, PLATEL, PRADAXA, OR XARELTO) NO . WHEN WAS YOUR LAST DOSE? DATE: TIME: . NEUROLOGY: HAVE YOU FALLEN IN THE PAST 12 MONTHS? NO . ANY NEW EXTREMITY NUMBNESS OR WEAKNESS? YES, LEFT LEG PAIN AND LBP . CARDIOLOGY: DO YOU HAVE A PACEMAKER OR DEFIBRILLATOR? NO . RESPIRATORY: HAVE YOU BEEN SICK IN THE PAST WEEK? YES, FLU RESOLVED . FEVER NO . FLU LIKE SYMPTOMS? NO . COUGH YES, PRODUCTIVE CLEAR SPUTUM . INTEGUMENTARY: DO YOU HAVE ANY RASHES OR OPEN SORES? NO . ALLERGIC/IMMUNO: ARE YOU ALLERGIC TO IV DYE? NO . ANY NEW ALLERGIES? NO . PSYCHIATRIC: DO YOU HAVE THOUGHTS OF HURTING YOURSELF OR SOMEONE ELSE? NO . ARE YOU ABUSED, NEGLECTED, OR IN AN UNSAFE ENVIRONMENT? NO . ENDOCRINOLOGY: ARE YOU DIABETIC? NO . OTHER: DO YOU NEED ANY PRESCRIPTIONS? TO DISCUSS . IF YES, PLEASE LIST: ____ . ANY NEW PROBLEMS WITH YOUR MEDICATIONS? NO . WHEN DID YOU LAST EAT? ____ . WHEN DID YOU LAST DRINK? ____ . WHAT DID YOU LAST DRINK? ____ . NAME OF PERSON DRIVING YOU HOME? ____ . DO YOU HAVE ANY OTHER QUESTIONS OR CONCERNS NO . VITAL SIGNS WT 208.6 LBS, HT 64 IN, BMI 35.80 INDEX, BP 160/90 MANUAL, HR 83 /MIN, RR 18 /MIN, TEMP 99.5 F, OXYGEN SAT % 98%, SAFE IN ENV? (Y/N) Y, NA INITIALS AW 1413, REVIEWED BY: VENTURA. EXAMINATION GENERAL EXAMINATION: GENERALNO ACUTE DISTRESS, WELL NOURISHED AND HYDRATED. PSYCHAPPROPRIATE MOOD AND AFFECT . LUNGS:CLEAR TO AUSCULTATION BILATERALLY, NO WHEEZES, RHONCHI, RALES. HEART:NO MURMURS, REGULAR RATE AND RHYTHM. ASSESSMENTS INTERVERTEBRAL DISC DISORDER WITH RADICULOPATHY OF LUMBAR REGION - M51.16 (PRIMARY) TREATMENT INTERVERTEBRAL DISC DISORDER WITH RADICULOPATHY OF LUMBAR REGION CLINICAL NOTES: 48-YEAR-OLD FEMALE IN FOR POST LESI FOLLOW-UP. GIVEN PRESENTING SYMPTOMS AND RESULTS OF PHYSICAL EXAMINATION RECOMMENDED FOLLOW-UP IN ONE MONTH. PATIENT HAS EXPRESSED UNDERSTANDING OF AND WAS IN AGREEMENT WITH TREATMENT PLAN. GIVEN TIME TO ASK QUESTIONS AND EXPRESS CONCERNS. PROCEDURE CODES FA211 ESTABILISHED PATIENT [facility] CHARGE DISPOSITION & COMMUNICATION FOLLOW UP 4 WEEKS (REASON: BACK PAIN) ELECTRONICALLY SIGNED BY MIRACLE CAMARENA ON 07/30/2019 AT 10:59 AM EDT DISCLAIMER : THIS IS A VISIT SUMMARY [facility] FROM THE [facility]. IT IS NOT A COPY OF THE [facility] PROGRESS NOTE. MANDY
== END ==
LOC: M PAIN 13:45
PROVIDERS: ATTEND Family Medicine
DX: M51.16 Intervertebral disc disorders with radiculopathy, lumbar region (principal)

== ENCOUNTER → 2019-08-27 | Outpatient (CLI) | payer OTHER ==
--- NOTE | 2019-08-29 01:56 | ECWPNPC ---
PATIENT NAME: ELISE KINGSTON : 1970 GENDER: FEMALE VISIT DATE: 08/27/2019 DISCHARGE DATE: 08/27/19 0858 VISIT LOCKED DATE TIME: PHYSICIAN: LICHA ARENAS RESOURCE: LICHA ARENAS REASON FOR APPOINTMENT 1. BACK PAIN HISTORY OF PRESENT ILLNESS HISTORY OF PRESENT ILLNESS: PAIN THE PATIENT DESCRIBES THE PAINDURING THE LAST MONTH SEVERITY - PAIN SCORE OF6/10 LOCATIONSLOWER BACK QUALITYSHOOTING DURATIONCONTINUOUS, CONSTANT, ALL DAY PERMISSION REQUESTED AND RECEIVED FROM PATIENT TO PERFORM TELEHEALTH VISIT. 49-YEAR-OLD FEMALE IN FOR POST LESI FOLLOW-UP. SHE DOES STATE THE PROCEDURE HELPED FOR APPROXIMATELY 4 DAYS. SHE RATES HER PAIN CURRENTLY AT AN 6 OUT OF 10 AND DESCRIBES IT SHOOTING. SHE WOULD LIKE TO DISCUSS POTENTIAL MEDICATION CHANGES TO HELP ALLEVIATE HER SYMPTOMS. SHE DENIES MED SIDE EFFECTS AT THIS TIME. FALL RISK SCREENING: SCREENING :NO FALLS REPORTED IN THE LAST YEAR CURRENT MEDICATIONS TAKING PRAZOSIN HCL 2 MG CAPSULE 1 CAPSULE AT BEDTIME ORALLY ONCE A DAY TAKING OMEPRAZOLE 40 MG CAPSULE DELAYED RELEASE 1 CAPSULE ORALLY ONCE A DAY TAKING ALPRAZOLAM 0.5 MG TABLET 1 TABLET ORALLY MDD2 TWICE A DAY TAKING BACLOFEN 10 MG TABLET 1 TABLET WITH FOOD OR MILK ORALLY TWICE A DAY NEEDED TAKING ASPIRIN 81 MG TABLET CHEWABLE 1 TABLET ORALLY ONCE A DAY TAKING TRAMADOL HCL 50 MG TABLET 1 TABLET NEEDED ORALLY EVERY 4-6 HRS TAKING VITAMIN C 500 MG CAPSULE 1 CAP ORALLY DAILY TAKING VENTOLIN HFA 108 (90 BASE) MCG/ACT AEROSOL SOLUTION 2 PUFFS NEEDED INHALATION EVERY 6 HRS TAKING VITAMIN B-12 500 MCG TABLET 1 TABLET ORALLY ONCE A DAY TAKING SYSTANE 0.4-0.3 % SOLUTION 1 DROP EACH EYE OPHTHALMIC DAILY NEEDED TAKING VALSARTAN 160 MG TABLET 1 TABLET ORALLY TWICE A DAY TAKING BUSPAR 10 MGS 1 TAB ORALLY TWICE DAILY TAKING HYDRALAZINE HCL 50 MG TABLET 1 TABLET WITH FOOD ORALLY THREE TIMES A DAY TAKING ABILIFY 5 MG TABLET 1 TABLET ORALLY ONCE A DAY TAKING RANITIDINE 150 MAX STRENGTH 150 MG TABLET 1 TAB ORALLY TWICE DAILY TAKING HYDROCHLOROTHIAZIDE 12.5 MG CAPSULE 1 CAPSULE IN THE MORNING ORALLY ONCE A DAY TAKING LABETALOL HCL 200 MG TABLET 1 TABLET ORALLY TWICE A DAY TAKING ANT MAG ZINC +D3 - TABLET (NO VIT D) DIRECTED ORALLY DAILY TAKING GABAPENTIN 300 MG CAPSULE 1 TAB IN THE MORNING AND AFTERNOON AND 2 AT BEDTIME ORALLY FOR PAIN THREE TIMES A DAY TAKING ARIPIPRAZOLE 10 MG TABLET 1 TABLET ORALLY TWICE A DAY TAKING NORVASC 5 MG TABLET 1 TABLET ORALLY BID NEEDED TAKING NAPROXEN 500 MG TABLET DELAYED RELEASE 1 TABLET ORALLY TWICE A DAY TAKING KLOR-CON 10 10 MEQ TABLET EXTENDED RELEASE 1 TABLET WITH FOOD ORALLY TWICE A DAY TAKING METOPROLOL SUCCINATE ER 100 MG TABLET EXTENDED RELEASE 24 HOUR 1 TABLET ORALLY ONCE A DAY NOT-TAKING LOTEMAX 0.5 % OINTMENT 1 APPLICATION OPHTHALMIC FOUR TIMES DAILY NEEDED MEDICATION LIST REVIEWED AND RECONCILED WITH THE PATIENT PAST MEDICAL HISTORY ANGINA PULMONARY 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 HYPERTENSION DAKOTAH-UNABLE TO TOLERATE CPAP ASTHMA BACK AND LEFT LEG PAIN ARTHRITIS GERD SEVERE NOSE BLEED ALLERGIES LATEX (FOR ALLERGY USE ONLY): DIFFICULTY BREATHING, ITCHING - ALLERGY ENVIRONMENTAL: SINUS CONGESTION, COUGH - ALLERGY SURGICAL HISTORY RIGHT ROTATOR CUFF REPAIR 08/2017, 12/2017 ARTHROSCOPY BILARTERAL KNEES SCREWS LEFT KNEE 2007 CHOLECYSTECTOMY 2010 TEAR DUCT OPENED A BABY LEFT CARPAL TUNNEL REPAIR 2007 TONSILLECTOMY AGE 12 D&C X 4 FAMILY HISTORY FATHER: NO KNOWN HISTORY ON FATHER MOTHER: ALIVE, DIAGNOSED WITH HYPERTENSION SIBLINGS: 1DAUGHTER(S) - HEALTHY. OLDEST [id number] PROBLEMS.YOUNGEST BROTHER FROM LOGGING ACCIDENT. SOCIAL HISTORY GENERAL: TOBACCO USE ARE YOU A:NONSMOKER EDUCATION LEVEL OF EDUCATION:HIGH SCHOOL DIET: REGULAR. LANGUAGE LANGUAGES SPOKEN:PASHTO DOMESTIC VIOLENCE DO YOU FEEL SAFE IN YOUR ENVIRONMENT?YES RECREATIONAL DRUG USE DRUG USE?NO EXERCISE: NONE. LEARNING BARRIERS / SPECIAL NEEDS BARRIERS TO LEARNING?NO HEARING IMPAIRED?NO VISION IMPAIRED?YES COGNITIVELY IMPAIRED?NO :CORRECTIVE LENSES READINESS TO LEARN?YES LEARNING PREFERENCES?NO LEARNING CAPABILITIES PRESENT?YES EMOTIONAL BARRIERS?NO SPECIAL DEVICES?YES :CANE ADJUTANT GENERAL NEEDED?NO PAIN CLINIC PFS, CLERGY, PUBLIC HEALTH REFERRALS PFS REFERRAL NEEDED?NO CLERGY REFERRAL NEEDED?NO PUBLIC HEALTH REFERRAL NEEDED?NO WAS THE PROVIDER NOTIFIED OF ANY PERTINENT INFO? N/A HAS THE PATIENT BEEN EDUCATED REGARDING HIS/HER PLAN OF CARE?YES HAS THE PATIENT BEEN EDUCATED REGARDING PAIN, THE RISK FOR PAIN, THE IMPORTANCE OF EFFECTIVE PAIN MANAGEMENT, AND THE PAIN ASSESSMENT PROCESS?YES LATEX QUESTIONNAIRE LATEX ALLERGY : HAVE YOU EVER DEVELOPED ANY TYPE OF REACTION AFTER HANDLING LATEX PRODUCTS SUCH RUBBER GLOVES, CONDOMS, DIAPHRAGMS, BALLOONS, SOCKS, OR UNDERWEAR?YES LATEX ALLERGY : HAVE YOU EVER DEVELOPED ANY TYPE OF REACTION DURING OR AFTER DENTAL APPOINTMENT, VAGINAL/RECTAL EXAMINATION, SURGICAL PROCEDURE, OR ANY OTHER EXPOSURE?NO - PLEASE INDICATE :RUBBER GLOVES, OTHER (DOCUMENT IN NOTES) LATEX ALLERGY DATE ASKED : 04/05/2019 LATEX RISK : HAVE YOU EVER HAD ANY DIFFICULTY BREATHING OR HIVES AFTER EATING OR HANDLING ANY FRUITS, OR VEGETABLES; SUCH KIWI, BANANAS, STONE FRUITS, OR CHESTNUTSNO LATEX RISK : DO YOU HAVE A PREVIOUS PERSONAL HISTORY OF MORE THAN NINE SURGERIES, SPINA BIFIDA, OR REPEATED CATHERIZATIONS? YES - PLEASE INDICATE : > 9 SURGERIES LATEX RISK : ARE YOU FREQUENTLY EXPOSED TO LATEX PRODUCTS IN YOUR OCCUPATION?NO ADVANCE DIRECTIVE ADVANCE DIRECTIVE DISCUSSED WITH PATIENT:YES [id number] KINGSTON [phone] JAINISM [id number] ZOROASTRIAN MARITAL STATUS: SINGLE. ALCOHOL SCREENING DID YOU HAVE A DRINK CONTAINING ALCOHOL IN THE PAST YEAR?YES HOW OFTEN DID YOU HAVE SIX OR MORE DRINKS ON ONE OCCASION IN THE PAST YEAR?NEVER (0 POINTS) HOW MANY DRINKS DID YOU HAVE ON A TYPICAL DAY WHEN YOU WERE DRINKING IN THE PAST YEAR?3 OR 4 (1 POINT) HOW OFTEN DID YOU HAVE A DRINK CONTAINING ALCOHOL IN THE PAST YEAR?MONTHLY OR LESS (1 POINT) POINTS2 INTERPRETATIONNEGATIVE OCCUPATION: DISABLED. PRE-SCREENING COMPLETED 06/29/2019 1119 JS. HOSPITALIZATION/MAJOR DIAGNOSTIC PROCEDURE SHOULDER SURGERY 08/2017,12/2017 PULMONARY EMBOLISM 02/2019 CHILDBIRTH SEVERE NOSE BLEED 10/13- REVIEW OF SYSTEMS REVIEWED BY: PROVIDER: LYNN KAUR . CONSTITUTIONAL: ANY CHANGE IN YOUR MEDICAL CONDITION? NO . CHILLS NO . FEVER NO . INFECTION: DO YOU HAVE NEW INFECTIONS? NO . DO YOU HAVE HISTORY OF MRSA? NO . MUSCULOSKELETAL: ANY NEW PATTERNS OF PAIN OR NUMBNESS? NO . GASTROENTEROLOGY: ANY NEW CHANGE IN BOWEL CONTROL? NO . GENITOURINARY: ANY NEW CHANGE IN BLADDER CONTROL? NO . IS THERE A CHANCE YOU COULD BE ? NO . HEMATOLOGY/LYMPH: DO YOU TAKE ANY BLOOD THINNERS? (FOR EXAMPLE- COUMADIN, PLAVIX, AGGRENOX, PLATEL, PRADAXA, OR XARELTO) NO . WHEN WAS YOUR LAST DOSE? DATE: TIME: . NEUROLOGY: HAVE YOU FALLEN IN THE PAST 12 MONTHS? NO . ANY NEW EXTREMITY NUMBNESS OR WEAKNESS? NO . CARDIOLOGY: DO YOU HAVE A PACEMAKER OR DEFIBRILLATOR? NO . RESPIRATORY: HAVE YOU BEEN SICK IN THE PAST WEEK? NO . FEVER NO . FLU LIKE SYMPTOMS? NO . COUGH NO . INTEGUMENTARY: DO YOU HAVE ANY RASHES OR OPEN SORES? NO . ALLERGIC/IMMUNO: ARE YOU ALLERGIC TO IV DYE? NO . ANY NEW ALLERGIES? NO . PSYCHIATRIC: DO YOU HAVE THOUGHTS OF HURTING YOURSELF OR SOMEONE ELSE? NO . ARE YOU ABUSED, NEGLECTED, OR IN AN UNSAFE ENVIRONMENT? NO . ENDOCRINOLOGY: ARE YOU DIABETIC? NO . OTHER: DO YOU NEED ANY PRESCRIPTIONS? NO . IF YES, PLEASE LIST: ____ . ANY NEW PROBLEMS WITH YOUR MEDICATIONS? NO . WHEN DID YOU LAST EAT? ____ . WHEN DID YOU LAST DRINK? ____ . WHAT DID YOU LAST DRINK? ____ . NAME OF PERSON DRIVING YOU HOME? ____ . DO YOU HAVE ANY OTHER QUESTIONS OR CONCERNS YES, DISCUSS PAIN MEDICATION . ASSESSMENTS INTERVERTEBRAL DISC DISORDER WITH RADICULOPATHY OF LUMBAR REGION - M51.16 (PRIMARY) TREATMENT INTERVERTEBRAL DISC DISORDER WITH RADICULOPATHY OF LUMBAR REGION INCREASE GABAPENTIN CAPSULE, 300 MG, 2 TAB IN THE MORNING 1 IN THE AFTERNOON AND 2 AT BEDTIME, ORALLY FOR PAIN, THREE TIMES A DAY, 30 DAYS, 150, REFILLS 1 CLINICAL NOTES: 49-YEAR-OLD FEMALE IN FOR POST LESI FOLLOW-UP. GIVEN PRESENTING SYMPTOMS RECOMMEND INCREASING GABAPENTIN TO 300 MG 2 CAPSULES IN THE MORNING 1 IN THE AFTERNOON AND 2 CAPSULES AT BEDTIME WITH FOLLOW-UP IN ONE MONTH TO DETERMINE EFFICACY OF TREATMENT. PATIENT HAS EXPRESSED UNDERSTANDING OF AND WAS IN AGREEMENT WITH TREATMENT PLAN. GIVEN TIME TO ASK QUESTIONS AND EXPRESS CONCERNS. DISPOSITION & COMMUNICATION FOLLOW UP 4 WEEKS (REASON: MEDICATION INCREASE ) ELECTRONICALLY SIGNED BY MIRACLE CAMARENA ON 08/28/2019 AT 09:03 AM EDT DISCLAIMER : THIS IS A VISIT SUMMARY EXTRACTED FROM THE [employer] CHART. IT IS NOT A COPY OF THE [employer] PROGRESS NOTE. MANDY
== END ==
LOC: M PAIN 11:45
PROVIDERS: ATTEND Family Medicine
DX: M51.16 Intervertebral disc disorders with radiculopathy, lumbar region (principal); I10 Essential (primary) hypertension; Z79.82 Long term (current) use of aspirin; Z79.891 Long term (current) use of opiate analgesic; Z79.899 Other long term (current) drug therapy; Z86.711 Personal history of pulmonary embolism; Z91.040 Latex allergy status

== ENCOUNTER → 2019-09-24 | Outpatient (CLI) | payer OTHER ==
--- NOTE | 2019-09-26 03:05 | ECWPNPC ---
PATIENT NAME: ELISE KINGSTON : 1970 GENDER: FEMALE VISIT DATE: 09/24/2019 DISCHARGE DATE: 09/24/19 1128 VISIT LOCKED DATE TIME: PHYSICIAN: LICHA ARENAS RESOURCE: ILCHA ARENAS REASON FOR APPOINTMENT 1. [place] [facility] COMPLETED HISTORY OF PRESENT ILLNESS HISTORY OF PRESENT ILLNESS: PAIN THE PATIENT DESCRIBES THE PAIN... PERMISSION REQUESTED AND RECEIVED FROM PATIENT TO PERFORM TELEPHONE VISIT. 49-YEAR-OLD FEMALE IN FOR CHRONIC PAIN FOLLOW-UP. SHE RATES HER PAIN CURRENTLY AT A 6 OUT OF 10 AND DESCRIBES IT ACHING AND BURNING. AT LAST CLINIC VISIT HER GABAPENTIN WAS INCREASED AND PATIENT ADMITS TODAY THAT THIS HAS BEEN HELPFUL. FALL RISK SCREENING: SCREENING :NO FALLS REPORTED IN THE LAST YEAR CURRENT MEDICATIONS TAKING PRAZOSIN HCL 2 MG CAPSULE 1 CAPSULE AT BEDTIME ORALLY ONCE A DAY TAKING OMEPRAZOLE 40 MG CAPSULE DELAYED RELEASE 1 CAPSULE ORALLY ONCE A DAY TAKING ALPRAZOLAM 0.5 MG TABLET 1 TABLET ORALLY MDD2 TWICE A DAY TAKING BACLOFEN 10 MG TABLET 1 TABLET WITH FOOD OR MILK ORALLY TWICE A DAY NEEDED TAKING ASPIRIN 81 MG TABLET CHEWABLE 1 TABLET ORALLY ONCE A DAY TAKING TRAMADOL HCL 50 MG TABLET 1 TABLET NEEDED ORALLY EVERY 4-6 HRS TAKING VITAMIN C 500 MG CAPSULE 1 CAP ORALLY DAILY TAKING VENTOLIN HFA 108 (90 BASE) MCG/ACT AEROSOL SOLUTION 2 PUFFS NEEDED INHALATION EVERY 6 HRS TAKING VITAMIN B-12 500 MCG TABLET 1 TABLET ORALLY ONCE A DAY TAKING SYSTANE 0.4-0.3 % SOLUTION 1 DROP EACH EYE OPHTHALMIC DAILY NEEDED TAKING VALSARTAN 160 MG TABLET 1 TABLET ORALLY TWICE A DAY TAKING BUSPAR 10 MGS 1 TAB ORALLY TWICE DAILY TAKING HYDRALAZINE HCL 50 MG TABLET 1 TABLET WITH FOOD ORALLY THREE TIMES A DAY TAKING ABILIFY 5 MG TABLET 1 TABLET ORALLY ONCE A DAY TAKING RANITIDINE 150 MAX STRENGTH 150 MG TABLET 1 TAB ORALLY TWICE DAILY TAKING HYDROCHLOROTHIAZIDE 12.5 MG CAPSULE 1 CAPSULE IN THE MORNING ORALLY ONCE A DAY TAKING LABETALOL HCL 200 MG TABLET 1 TABLET ORALLY TWICE A DAY TAKING ANT MAG ZINC +D3 - TABLET (NO VIT D) DIRECTED ORALLY DAILY TAKING ARIPIPRAZOLE 10 MG TABLET 1 TABLET ORALLY TWICE A DAY TAKING NORVASC 5 MG TABLET 1 TABLET ORALLY BID NEEDED TAKING NAPROXEN 500 MG TABLET DELAYED RELEASE 1 TABLET ORALLY TWICE A DAY TAKING KLOR-CON 10 10 MEQ TABLET EXTENDED RELEASE 1 TABLET WITH FOOD ORALLY TWICE A DAY TAKING METOPROLOL SUCCINATE ER 100 MG TABLET EXTENDED RELEASE 24 HOUR 1 TABLET ORALLY ONCE A DAY TAKING GABAPENTIN 300 MG CAPSULE 2 TAB IN THE MORNING 1 IN THE AFTERNOON AND 2 AT BEDTIME ORALLY FOR PAIN THREE TIMES A DAY NOT-TAKING LOTEMAX 0.5 % OINTMENT 1 APPLICATION OPHTHALMIC FOUR TIMES DAILY NEEDED MEDICATION LIST REVIEWED AND RECONCILED WITH THE PATIENT PAST MEDICAL HISTORY ANGINA PULMONARY 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 HYPERTENSION DAKOTAH-UNABLE TO TOLERATE CPAP ASTHMA BACK AND LEFT LEG PAIN ARTHRITIS GERD SEVERE NOSE BLEED ALLERGIES LATEX (FOR ALLERGY USE ONLY): DIFFICULTY BREATHING, ITCHING - ALLERGY ENVIRONMENTAL: SINUS CONGESTION, COUGH - ALLERGY SURGICAL HISTORY RIGHT ROTATOR CUFF REPAIR 08/2017, 12/2017 ARTHROSCOPY BILARTERAL KNEES SCREWS LEFT KNEE 2007 CHOLECYSTECTOMY 2009 TEAR DUCT OPENED A BABY LEFT CARPAL TUNNEL REPAIR 2007 TONSILLECTOMY AGE 12 D&C X 4 FAMILY HISTORY FATHER: NO KNOWN HISTORY ON FATHER MOTHER: ALIVE, DIAGNOSED WITH HYPERTENSION SIBLINGS: 1DAUGHTER(S) - HEALTHY. OLDEST [id number] PROBLEMS.YOUNGEST BROTHER FROM LOGGING ACCIDENT. SOCIAL HISTORY GENERAL: TOBACCO USE ARE YOU A:NONSMOKER LATEX QUESTIONNAIRE LATEX ALLERGY : HAVE YOU EVER DEVELOPED ANY TYPE OF REACTION AFTER HANDLING LATEX PRODUCTS SUCH RUBBER GLOVES, CONDOMS, DIAPHRAGMS, BALLOONS, SOCKS, OR UNDERWEAR?YES - PLEASE INDICATE :RUBBER GLOVES, OTHER (DOCUMENT IN NOTES) LATEX ALLERGY LATEX ALLERGY : HAVE YOU EVER DEVELOPED ANY TYPE OF REACTION DURING OR AFTER DENTAL APPOINTMENT, VAGINAL/RECTAL EXAMINATION, SURGICAL PROCEDURE, OR ANY OTHER EXPOSURE?NO LATEX RISK : HAVE YOU EVER HAD ANY DIFFICULTY BREATHING OR HIVES AFTER EATING OR HANDLING ANY FRUITS, OR VEGETABLES; SUCH KIWI, BANANAS, STONE FRUITS, OR CHESTNUTSNO LATEX RISK : DO YOU HAVE A PREVIOUS PERSONAL HISTORY OF MORE THAN NINE SURGERIES, SPINA BIFIDA, OR REPEATED CATHERIZATIONS? YES - PLEASE INDICATE : > 9 SURGERIES LATEX RISK : ARE YOU FREQUENTLY EXPOSED TO LATEX PRODUCTS IN YOUR OCCUPATION?NO DATE ASKED : 09/21/2019 ALCOHOL SCREENING DID YOU HAVE A DRINK CONTAINING ALCOHOL IN THE PAST YEAR?YES HOW OFTEN DID YOU HAVE SIX OR MORE DRINKS ON ONE OCCASION IN THE PAST YEAR?NEVER (0 POINTS) HOW MANY DRINKS DID YOU HAVE ON A TYPICAL DAY WHEN YOU WERE DRINKING IN THE PAST YEAR?3 OR 4 (1 POINT) HOW OFTEN DID YOU HAVE A DRINK CONTAINING ALCOHOL IN THE PAST YEAR?MONTHLY OR LESS (1 POINT) POINTS2 INTERPRETATIONNEGATIVE RECREATIONAL DRUG USE DRUG USE?NO CHURCH [id number] RESTORATIONIST LANGUAGE LANGUAGES SPOKEN:UZBEK EDUCATION LEVEL OF EDUCATION:HIGH SCHOOL LEARNING BARRIERS / SPECIAL NEEDS BARRIERS TO LEARNING?NO HEARING IMPAIRED?NO VISION IMPAIRED?YES COGNITIVELY IMPAIRED?NO :CORRECTIVE LENSES READINESS TO LEARN?YES LEARNING PREFERENCES?NO LEARNING CAPABILITIES PRESENT?YES EMOTIONAL BARRIERS?NO SPECIAL DEVICES?YES :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 DIET: REGULAR. EXERCISE: NONE. MARITAL STATUS: SINGLE. NEW PATIENT PAIN DIARY TODAY'S VISITNOTES 09/21/2019 PATIENT DESCRIBES PAIN :ACHING, IT COMES AND GOES FROM 0-10, WHAT LEVEL IS YOUR PAIN TODAY?5 PAIN CLINIC PFS, CLERGY, PUBLIC HEALTH REFERRALS PFS REFERRAL NEEDED?NO CLERGY REFERRAL NEEDED?NO PUBLIC HEALTH REFERRAL NEEDED?NO WAS THE PROVIDER NOTIFIED OF ANY PERTINENT INFO? N/A HAS THE PATIENT BEEN EDUCATED REGARDING HIS/HER PLAN OF CARE?YES HAS THE PATIENT BEEN EDUCATED REGARDING PAIN, THE RISK FOR PAIN, THE IMPORTANCE OF EFFECTIVE PAIN MANAGEMENT, AND THE PAIN ASSESSMENT PROCESS?YES ADVANCE DIRECTIVE ADVANCE DIRECTIVE DISCUSSED WITH PATIENT:YES [id number] ALittle KINGSTON [phone] HOSPITALIZATION/MAJOR DIAGNOSTIC PROCEDURE SHOULDER SURGERY 08/2017,12/2017 PULMONARY EMBOLISM 02/2019 CHILDBIRTH SEVERE NOSE BLEED 10/13- REVIEW OF SYSTEMS REVIEWED BY: PROVIDER: LYNN ARENAS PEST CONTROL APPLICATOR-C . CONSTITUTIONAL: ANY CHANGE IN YOUR MEDICAL CONDITION? NO . CHILLS NO . FEVER NO . INFECTION: DO YOU HAVE NEW INFECTIONS? NO . DO YOU HAVE HISTORY OF MRSA? NO . MUSCULOSKELETAL: ANY NEW PATTERNS OF PAIN OR NUMBNESS? NO . GASTROENTEROLOGY: ANY NEW CHANGE IN BOWEL CONTROL? NO . GENITOURINARY: ANY NEW CHANGE IN BLADDER CONTROL? NO . IS THERE A CHANCE YOU COULD BE ? NO . HEMATOLOGY/LYMPH: DO YOU TAKE ANY BLOOD THINNERS? (FOR EXAMPLE- COUMADIN, PLAVIX, AGGRENOX, PLATEL, PRADAXA, OR XARELTO) NO . WHEN WAS YOUR LAST DOSE? DATE: TIME: . NEUROLOGY: HAVE YOU FALLEN IN THE PAST 12 MONTHS? NO . ANY NEW EXTREMITY NUMBNESS OR WEAKNESS? NO . CARDIOLOGY: DO YOU HAVE A PACEMAKER OR DEFIBRILLATOR? NO . RESPIRATORY: HAVE YOU BEEN SICK IN THE PAST WEEK? NO . FEVER NO . FLU LIKE SYMPTOMS? NO . COUGH NO . INTEGUMENTARY: DO YOU HAVE ANY RASHES OR OPEN SORES? NO . ALLERGIC/IMMUNO: ARE YOU ALLERGIC TO IV DYE? NO . ANY NEW ALLERGIES? NO . PSYCHIATRIC: DO YOU HAVE THOUGHTS OF HURTING YOURSELF OR SOMEONE ELSE? NO . ARE YOU ABUSED, NEGLECTED, OR IN AN UNSAFE ENVIRONMENT? NO . ENDOCRINOLOGY: ARE YOU DIABETIC? NO . OTHER: DO YOU NEED ANY PRESCRIPTIONS? NO . IF YES, PLEASE LIST: ____ . ANY NEW PROBLEMS WITH YOUR MEDICATIONS? NO . WHEN DID YOU LAST EAT? ____ . WHEN DID YOU LAST DRINK? ____ . WHAT DID YOU LAST DRINK? ____ . NAME OF PERSON DRIVING YOU HOME? ____ . DO YOU HAVE ANY OTHER QUESTIONS OR CONCERNS YES, WOULD LIKE TO DISCUSS GETTING IN FOR A PROCEDURE SOON . EXAMINATION GENERAL EXAMINATION: PSYCHAPPROPRIATE MOOD AND AFFECT , ORIENTED X 3. ASSESSMENTS INTERVERTEBRAL DISC DISORDER WITH RADICULOPATHY OF LUMBAR REGION - M51.16 (PRIMARY) TREATMENT INTERVERTEBRAL DISC DISORDER WITH RADICULOPATHY OF LUMBAR REGION REFILL BACLOFEN TABLET, 10 MG, 1 TABLET WITH FOOD OR MILK, ORALLY, THREE TIMES A DAY, 30 DAYS, 90 TABLET CLINICAL NOTES: 49-YEAR-OLD FEMALE IN FOR CHRONIC PAIN FOLLOW-UP. GIVEN PRESENTING SYMPTOMS RECOMMEND RESTARTING BACLOFEN 10 MG 3 TIMES A DAY WITH FOLLOW-UP IN 2 MONTHS TO DETERMINE EFFICACY OF TREATMENT. (PER PATIENT REPORT SHE HAS NOT BEEN TAKING BACLOFEN.)PATIENT HAS EXPRESSED UNDERSTANDING OF AND WAS IN AGREEMENT WITH TREATMENT PLAN. GIVEN TIME TO ASK QUESTIONS AND EXPRESS CONCERNS. VISIT TO BE BILLED BASED ON TIME SPENT WITH PATIENT. TIME SPENT WITH PATIENT 11 MINUTES. . OTHERS NOTES: NO VITALS OBTAINED DUE TO PHONE VISIT. PRE-SCREENING COMPLETED 09/21/2019 1535 JS. DISPOSITION & COMMUNICATION FOLLOW UP 2 MONTHS (REASON: BACK PAIN) ELECTRONICALLY SIGNED BY MIRACLE CAMARENA ON 09/25/2019 AT 02:36 PM EDT DISCLAIMER : THIS IS A VISIT SUMMARY EXTRACTED FROM THE [email or web address] CHART. IT IS NOT A COPY OF THE [email or web address] PROGRESS NOTE. MANDY
== END ==
LOC: M PAIN 10:45
PROVIDERS: ATTEND Family Medicine
DX: M51.16 Intervertebral disc disorders with radiculopathy, lumbar region (principal); G89.29 Other chronic pain; Z86.711 Personal history of pulmonary embolism; I10 Essential (primary) hypertension; G47.33 Obstructive sleep apnea (adult) (pediatric); J45.909 Unspecified asthma, uncomplicated; K21.9 Gastro-esophageal reflux disease without esophagitis; Z91.040 Latex allergy status; Z79.82 Long term (current) use of aspirin; Z79.899 Other long term (current) drug therapy

== ENCOUNTER → 2019-11-26 | Outpatient (CLI) | payer OTHER ==
--- NOTE | 2019-11-28 04:39 | ECWPNPC ---
PATIENT NAME: ELISE KINGSTON : 1970 GENDER: FEMALE VISIT DATE: 11/26/2019 DISCHARGE DATE: 11/26/19 1325 VISIT LOCKED DATE TIME: PHYSICIAN: LICHA ARENAS RESOURCE: LICHA ARENAS REASON FOR APPOINTMENT 1. BACK PAIN HISTORY OF PRESENT ILLNESS GENERAL: - 49-YEAR-OLD FEMALE IN FOR CHRONIC PAIN FOLLOW-UP. SHE RATES HER PAIN CURRENTLY AT A 10 OUT OF 10 AND DESCRIBES IT BURNING, CONTINUOUS, AND STABBING. PATIENT DOES ADMIT TO INCREASED PAIN RECENTLY AND STATES HER CURRENT DOSAGE OF MEDICATIONS IS NOT HELPFUL. FALL RISK SCREENING: SCREENING :NO FALLS REPORTED IN THE LAST YEAR PAIN SCREENING: PATIENT HAS A COMPLAINT OF ACUTE OR CHRONIC PAIN :YES LOCATION OF PAIN:LOW BACK INTENSITY OF PAIN (SCALE OF 1 TO 10):10 WHAT DOES YOUR PAIN FEEL LIKE:BURNING, CONTINOUS, STABBING DURATION:CONTINOUS, CONSTANT, ALL DAY, AWAKENS FROM SLEEP PAIN IS INCREASED BY:ACTIVITIES, PROLONGED STANDING PAIN IS DECREASED BY:USE OF PAIN MEDICATIONS GABAPENTIN PAIN HAS INTERFERED WITH THE FOLLOWING:MOOD, HOUSEWORK, SLEEP, RELATIONSHIP WITH OTHERS, ENJOYMENT OF LIFE PLAN/GOALS/TREATMENT/INTERVENTION/FOLLOW UP:SEE PLAN NURSING NOTE: -. PAIN CENTER INTAKE QUESTIONS: DO YOU HAVE A HISTORY OF MRSA? :NO DO YOU TAKE A BLOOD THINNERS? :NO DO YOU HAVE ANY BLEEDING DISORDERS? :NO ANY NEW NUMBNESS OR WEAKNESS IN YOUR LEGS OR ARMS? :NO ANY PACEMAKER,DEFIBRILLATOR, OR DORSAL COLUMN STIMULATOR? :NO DO YOU HAVE ANY RASHES OR OPEN SORES? :NO ARE YOU ALLERGIC TO IV DYE? :NO ARE YOU DIABETIC? :NO ANY NEW PROBLEMS WITH YOUR MEDICATIONS? :NO HAVE YOU RECEIVED A VACCINE IN THE PAST 30 DAYS? :NO DO YOU PLAN TO RECEIVE A VACCINE IN THE NEXT 21 DAYS? :NO DO YOU NEED ANY PRESCRIPTION? :NO DO YOU TAKE ANY IMMUNOSUPPRESSIVE MEDICATIONS? :NO IS THERE A CHANCE YOU COULD BE ? :NO ARE YOU BREAST FEEDING? :NO CURRENT MEDICATIONS TAKING PRAZOSIN HCL 2 MG CAPSULE 1 CAPSULE AT BEDTIME ORALLY ONCE A DAY TAKING OMEPRAZOLE 40 MG CAPSULE DELAYED RELEASE 1 CAPSULE ORALLY ONCE A DAY TAKING ALPRAZOLAM 0.5 MG TABLET 1 TABLET ORALLY MDD2 TWICE A DAY TAKING ASPIRIN 81 MG TABLET CHEWABLE 1 TABLET ORALLY ONCE A DAY TAKING TRAMADOL HCL 50 MG TABLET 1 TABLET NEEDED ORALLY EVERY 4-6 HRS TAKING VITAMIN C 500 MG CAPSULE 1 CAP ORALLY DAILY TAKING VENTOLIN HFA 108 (90 BASE) MCG/ACT AEROSOL SOLUTION 2 PUFFS NEEDED INHALATION EVERY 6 HRS TAKING VITAMIN B-12 500 MCG TABLET 1 TABLET ORALLY ONCE A DAY TAKING SYSTANE 0.4-0.3 % SOLUTION 1 DROP EACH EYE OPHTHALMIC DAILY NEEDED TAKING VALSARTAN 160 MG TABLET 1 TABLET ORALLY TWICE A DAY TAKING BUSPAR 10 MGS 1 TAB ORALLY TWICE DAILY TAKING HYDRALAZINE HCL 50 MG TABLET 1 TABLET WITH FOOD ORALLY THREE TIMES A DAY TAKING ABILIFY 5 MG TABLET 1 TABLET ORALLY ONCE A DAY TAKING RANITIDINE 150 MAX STRENGTH 150 MG TABLET 1 TAB ORALLY TWICE DAILY TAKING HYDROCHLOROTHIAZIDE 12.5 MG CAPSULE 1 CAPSULE IN THE MORNING ORALLY ONCE A DAY TAKING LABETALOL HCL 200 MG TABLET 1 TABLET ORALLY TWICE A DAY TAKING ANT MAG ZINC +D3 - TABLET (NO VIT D) DIRECTED ORALLY DAILY TAKING ARIPIPRAZOLE 10 MG TABLET 1 TABLET ORALLY TWICE A DAY TAKING NORVASC 5 MG TABLET 1 TABLET ORALLY BID NEEDED TAKING NAPROXEN 500 MG TABLET DELAYED RELEASE 1 TABLET ORALLY TWICE A DAY TAKING KLOR-CON 10 10 MEQ TABLET EXTENDED RELEASE 1 TABLET WITH FOOD ORALLY TWICE A DAY TAKING METOPROLOL SUCCINATE ER 100 MG TABLET EXTENDED RELEASE 24 HOUR 1 TABLET ORALLY ONCE A DAY TAKING BACLOFEN 10 MG TABLET 1 TABLET WITH FOOD OR MILK ORALLY THREE TIMES A DAY TAKING GABAPENTIN 300 MG CAPSULE 2 TAB IN THE MORNING 1 IN THE AFTERNOON AND 2 AT BEDTIME ORALLY FOR PAIN THREE TIMES A DAY NOT-TAKING LOTEMAX 0.5 % OINTMENT 1 APPLICATION OPHTHALMIC FOUR TIMES DAILY NEEDED MEDICATION LIST REVIEWED AND RECONCILED WITH THE PATIENT PAST MEDICAL HISTORY ANGINA PULMONARY 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 HYPERTENSION DAKOTAH-UNABLE TO TOLERATE CPAP ASTHMA BACK AND LEFT LEG PAIN ARTHRITIS GERD SEVERE NOSE BLEED ALLERGIES LATEX (FOR ALLERGY USE ONLY): DIFFICULTY BREATHING, ITCHING - ALLERGY ENVIRONMENTAL: SINUS CONGESTION, COUGH - ALLERGY SURGICAL HISTORY RIGHT ROTATOR CUFF REPAIR 08/2017, 12/2017 ARTHROSCOPY BILARTERAL KNEES SCREWS LEFT KNEE 2007 CHOLECYSTECTOMY 2009 TEAR DUCT OPENED A BABY LEFT CARPAL TUNNEL REPAIR 2007 TONSILLECTOMY AGE 12 D&C X 4 FAMILY HISTORY FATHER: NO KNOWN HISTORY ON FATHER MOTHER: ALIVE, DIAGNOSED WITH HYPERTENSION SIBLINGS: 1DAUGHTER(S) - HEALTHY. OLDEST [id number] PROBLEMS.YOUNGEST BROTHER FROM LOGGING ACCIDENT. SOCIAL HISTORY GENERAL: TOBACCO USE ARE YOU A:NONSMOKER LATEX QUESTIONNAIRE LATEX ALLERGY : HAVE YOU EVER DEVELOPED ANY TYPE OF REACTION AFTER HANDLING LATEX PRODUCTS SUCH RUBBER GLOVES, CONDOMS, DIAPHRAGMS, BALLOONS, SOCKS, OR UNDERWEAR?YES - PLEASE INDICATE :RUBBER GLOVES, OTHER (DOCUMENT IN NOTES) LATEX ALLERGY LATEX ALLERGY : HAVE YOU EVER DEVELOPED ANY TYPE OF REACTION DURING OR AFTER DENTAL APPOINTMENT, VAGINAL/RECTAL EXAMINATION, SURGICAL PROCEDURE, OR ANY OTHER EXPOSURE?NO LATEX RISK : HAVE YOU EVER HAD ANY DIFFICULTY BREATHING OR HIVES AFTER EATING OR HANDLING ANY FRUITS, OR VEGETABLES; SUCH KIWI, BANANAS, STONE FRUITS, OR CHESTNUTSNO LATEX RISK : DO YOU HAVE A PREVIOUS PERSONAL HISTORY OF MORE THAN NINE SURGERIES, SPINA BIFIDA, OR REPEATED CATHERIZATIONS? YES - PLEASE INDICATE : > 9 SURGERIES LATEX RISK : ARE YOU FREQUENTLY EXPOSED TO LATEX PRODUCTS IN YOUR OCCUPATION?NO DATE ASKED : 11/26/2019 ALCOHOL SCREENING DID YOU HAVE A DRINK CONTAINING ALCOHOL IN THE PAST YEAR?YES HOW OFTEN DID YOU HAVE SIX OR MORE DRINKS ON ONE OCCASION IN THE PAST YEAR?NEVER (0 POINTS) HOW MANY DRINKS DID YOU HAVE ON A TYPICAL DAY WHEN YOU WERE DRINKING IN THE PAST YEAR?3 OR 4 (1 POINT) HOW OFTEN DID YOU HAVE A DRINK CONTAINING ALCOHOL IN THE PAST YEAR?MONTHLY OR LESS (1 POINT) POINTS2 INTERPRETATIONNEGATIVE RECREATIONAL DRUG USE DRUG USE?NO EVANGELICAL [id number] JEW LANGUAGE LANGUAGES SPOKEN:SWEDISH EDUCATION LEVEL OF EDUCATION:HIGH SCHOOL LEARNING BARRIERS / SPECIAL NEEDS BARRIERS TO LEARNING?NO HEARING IMPAIRED?NO VISION IMPAIRED?YES COGNITIVELY IMPAIRED?NO :CORRECTIVE LENSES READINESS TO LEARN?YES LEARNING PREFERENCES?NO LEARNING CAPABILITIES PRESENT?YES EMOTIONAL BARRIERS?NO SPECIAL DEVICES?YES :CANE 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 DIET: REGULAR. EXERCISE: NONE. MARITAL STATUS: SINGLE. NEW PATIENT PAIN DIARY TODAY'S VISITNOTES PATIENT DESCRIBES PAIN :ACHING, IT COMES AND GOES FROM 0-10, WHAT LEVEL IS YOUR PAIN TODAY?5 PAIN CLINIC PFS, CLERGY, PUBLIC HEALTH REFERRALS PFS REFERRAL NEEDED?NO CLERGY REFERRAL NEEDED?NO PUBLIC HEALTH REFERRAL NEEDED?NO WAS THE PROVIDER NOTIFIED OF ANY PERTINENT INFO? N/A HAS THE PATIENT BEEN EDUCATED REGARDING HIS/HER PLAN OF CARE?YES HAS THE PATIENT BEEN EDUCATED REGARDING PAIN, THE RISK FOR PAIN, THE IMPORTANCE OF EFFECTIVE PAIN MANAGEMENT, AND THE PAIN ASSESSMENT PROCESS?YES ADVANCE DIRECTIVE ADVANCE DIRECTIVE DISCUSSED WITH PATIENT:YES [id number] KINGSTON [phone] HOSPITALIZATION/MAJOR DIAGNOSTIC PROCEDURE SHOULDER SURGERY 08/2017,12/2017 PULMONARY EMBOLISM 02/2019 CHILDBIRTH SEVERE NOSE BLEED 10/13- REVIEW OF SYSTEMS CONSTITUTIONAL: ANY RECENT FEVER NO . CHILLS NO . WEIGHT CHANGE OF UNKNOWN REASONS NO . GASTROENTEROLOGY: NEW UNEXPLAINABLE CHANGES IN BOWEL CONTROL NO . CONSTIPATION NO . GENITOURINARY: ANY NEW CHANGE IN BLADDER CONTROL? NO . NEUROLOGY: NEW ONSET DIZZINESS OR NEUROLOGICAL CHANGES NOT MENTIONED NO . NEW NUMBNESS OR PAIN PATTERNS NOT MENTIONED AND PERTINENT TO TODAY'S VISIT NO . CARDIOLOGY: NEW CHEST PRESSURE NO . NEW CHEST PAIN NO . RESPIRATORY: UNEXPLAINABLE COUGH NO . NEW SHORTNESS OF BREATH NO . VITAL SIGNS WT 212.4 LBS, HT 64 IN, BMI 36.45 INDEX, BP 179/96 MM HG, HR 91 /MIN, RR 18 /MIN, TEMP 96.7 F, OXYGEN SAT % 97%, SAFE IN ENV? 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 EXAMINATION GENERAL EXAMINATION: GENERALNO ACUTE DISTRESS, WELL NOURISHED AND HYDRATED. PSYCHAPPROPRIATE MOOD AND AFFECT . LUNGS:CLEAR TO AUSCULTATION BILATERALLY, NO WHEEZES, RHONCHI, RALES. HEART:NO MURMURS, REGULAR RATE AND RHYTHM. ASSESSMENTS INTERVERTEBRAL DISC DISORDER WITH RADICULOPATHY OF LUMBAR REGION - M51.16 (PRIMARY) TREATMENT INTERVERTEBRAL DISC DISORDER WITH RADICULOPATHY OF LUMBAR REGION INCREASE BACLOFEN TABLET, 20 MG, 1 TABLET WITH FOOD OR MILK, ORALLY, THREE TIMES A DAY, 30 DAYS, 90 CLINICAL NOTES: 49-YEAR-OLD FEMALE IN FOR CHRONIC PAIN FOLLOW-UP. GIVEN PRESENTING SYMPTOMS RECOMMENDED INCREASING BACLOFEN TO 20 MG 3 TIMES A DAY WITH FOLLOW-UP IN ONE MONTH TO DETERMINE EFFICACY OF TREATMENT. PATIENT HAS EXPRESSED UNDERSTANDING OF AND WAS IN AGREEMENT WITH TREATMENT PLAN. GIVEN TIME TO ASK QUESTIONS AND EXPRESS CONCERNS. PROCEDURE CODES FA211 ESTABILISHED PATIENT [facility] CHARGE DISPOSITION & COMMUNICATION FOLLOW UP 4 WEEKS (REASON: MED INCREASE, BACK PAIN) ELECTRONICALLY SIGNED BY MIRACLE CAMARENA ON 11/27/2019 AT 08:17 AM EDT DISCLAIMER : THIS IS A VISIT SUMMARY EXTRACTED FROM THE [employer] CHART. IT IS NOT A COPY OF THE [employer] PROGRESS NOTE. MTDD
== END ==
LOC: M PAIN 13:00
PROVIDERS: ATTEND Family Medicine
DX: M51.16 Intervertebral disc disorders with radiculopathy, lumbar region (principal)

== ENCOUNTER → 2020-09-22 | Outpatient (CLI) | payer OTHER ==
[~2020-09-22] MED LIST changes: -AMLO10TA5 PO; +AMLO1TAB25 PO; -ASPI81TA85 PO; +ASPI81TA86 PO; +LABE100T4 PO; -LABE10TAB PO
--- NOTE | 2020-09-25 01:13 | ECWPNPC ---
PATIENT NAME: ELISE KINGSTON : 1970 GENDER: FEMALE VISIT DATE: 09/22/2020 DISCHARGE DATE: 09/22/20 1213 VISIT LOCKED DATE TIME: PHYSICIAN: LICHA ARENAS RESOURCE: LICHA ARENAS REASON FOR APPOINTMENT 1. BACK PAIN-WANTS PROC HISTORY OF PRESENT ILLNESS DEPRESSION SCREENING: PHQ-2 (2015 EDITION) LITTLE INTEREST OR PLEASURE IN DOING THINGS?NOT AT ALL FEELING DOWN, DEPRESSED, OR HOPELESS?NOT AT ALL TOTAL SCORE0 GENERAL: HPI 50-YEAR-OLD FEMALE IN FOR CHRONIC PAIN FOLLOW-UP. SHE RATES HER PAIN CURRENTLY AT A 10 OUT OF 10 AND DESCRIBES IT BURNING, CONTINUOUS AND SHARP. SHE FEELS THE MEDICATIONS SHE IS CURRENTLY TAKING ARE NOT HELPING WITH HER PAIN. PATIENT DOES WISH TO DISCUSS POTENTIAL BREAST REDUCTION TO HELP WITH HER BACK PAIN.. -. FALL RISK SCREENING: SCREENING : NO FALLS REPORTED IN THE LAST YEAR. PAIN SCREENING: PATIENT HAS A COMPLAINT OF ACUTE OR CHRONIC PAIN :YES LOCATION OF PAIN:LOW BACK INTENSITY OF PAIN (SCALE OF 1 TO 10):10 WHAT DOES YOUR PAIN FEEL LIKE:BURNING, CONTINOUS, SHARP, STABBING DURATION:CONTINOUS, AWAKENS FROM SLEEP PAIN IS INCREASED BY:ACTIVITIES, PROLONGED STANDING PAIN IS DECREASED BY:SITTING NURSING NOTE: -. PAIN CENTER INTAKE QUESTIONS: DO YOU HAVE A HISTORY OF MRSA? :NO DO YOU TAKE A BLOOD THINNERS? :NO DO YOU HAVE ANY BLEEDING DISORDERS? :NO ANY NEW NUMBNESS OR WEAKNESS IN YOUR LEGS OR ARMS? :NO ANY PACEMAKER,DEFIBRILLATOR, OR DORSAL COLUMN STIMULATOR? :NO DO YOU HAVE ANY RASHES OR OPEN SORES? :NO ARE YOU ALLERGIC TO IV DYE? :NO ARE YOU DIABETIC? :NO ANY NEW PROBLEMS WITH YOUR MEDICATIONS? :NO HAVE YOU RECEIVED A VACCINE IN THE PAST 30 DAYS? :NO DO YOU PLAN TO RECEIVE A VACCINE IN THE NEXT 21 DAYS? :YES IF SO WHAT VACCINE AND WHEN? PATIENT IS CONSDERING THE COVID VACCINATION DO YOU NEED ANY PRESCRIPTION? :NO DO YOU TAKE ANY IMMUNOSUPPRESSIVE MEDICATIONS? :NO IS THERE A CHANCE YOU COULD BE ? :NO ARE YOU BREAST FEEDING? :NO CURRENT MEDICATIONS TAKING PRAZOSIN HCL 2 MG CAPSULE 1 CAPSULE AT BEDTIME ORALLY ONCE A DAY TAKING OMEPRAZOLE 40 MG CAPSULE DELAYED RELEASE 1 CAPSULE ORALLY ONCE A DAY TAKING ALPRAZOLAM 0.5 MG TABLET 1 TABLET ORALLY MDD2 TWICE A DAY TAKING ASPIRIN 81 MG TABLET CHEWABLE 1 TABLET ORALLY ONCE A DAY TAKING VITAMIN C 500 MG CAPSULE 1 CAP ORALLY DAILY TAKING VENTOLIN HFA 108 (90 BASE) MCG/ACT AEROSOL SOLUTION 2 PUFFS NEEDED INHALATION EVERY 6 HRS TAKING VITAMIN B-12 500 MCG TABLET 1 TABLET ORALLY ONCE A DAY TAKING SYSTANE 0.4-0.3 % SOLUTION 1 DROP EACH EYE OPHTHALMIC DAILY NEEDED TAKING VALSARTAN 160 MG TABLET 1 TABLET ORALLY TWICE A DAY TAKING BUSPAR 10 MGS 1 TAB ORALLY TWICE DAILY TAKING HYDRALAZINE HCL 50 MG TABLET 1 TABLET WITH FOOD ORALLY THREE TIMES A DAY TAKING ABILIFY 5 MG TABLET 1 TABLET ORALLY ONCE A DAY TAKING RANITIDINE 150 MAX STRENGTH 150 MG TABLET 1 TAB ORALLY TWICE DAILY TAKING HYDROCHLOROTHIAZIDE 12.5 MG CAPSULE 1 CAPSULE IN THE MORNING ORALLY ONCE A DAY TAKING LABETALOL HCL 200 MG TABLET 1 TABLET ORALLY TWICE A DAY TAKING ANT MAG ZINC +D3 - TABLET (NO VIT D) DIRECTED ORALLY DAILY TAKING ARIPIPRAZOLE 10 MG TABLET 1 TABLET ORALLY TWICE A DAY TAKING NORVASC 5 MG TABLET 1 TABLET ORALLY BID NEEDED TAKING NAPROXEN 500 MG TABLET DELAYED RELEASE 1 TABLET ORALLY TWICE A DAY TAKING KLOR-CON 10 10 MEQ TABLET EXTENDED RELEASE 1 TABLET WITH FOOD ORALLY TWICE A DAY TAKING METOPROLOL SUCCINATE ER 100 MG TABLET EXTENDED RELEASE 24 HOUR 1 TABLET ORALLY ONCE A DAY TAKING GABAPENTIN 300 MG CAPSULE 2 TAB IN THE MORNING 1 IN THE AFTERNOON AND 2 AT BEDTIME ORALLY FOR PAIN THREE TIMES A DAY TAKING BACLOFEN 20 MG TABLET 1 TABLET WITH FOOD OR MILK ORALLY THREE TIMES A DAY NOT-TAKING TRAMADOL HCL 50 MG TABLET 1 TABLET NEEDED ORALLY EVERY 4-6 HRS NOT-TAKING LOTEMAX 0.5 % OINTMENT 1 APPLICATION OPHTHALMIC FOUR TIMES DAILY NEEDED MEDICATION LIST REVIEWED AND RECONCILED WITH THE PATIENT PAST MEDICAL HISTORY ANGINA PULMONARY 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 HYPERTENSION DAKOTAH-UNABLE TO TOLERATE CPAP ASTHMA BACK AND LEFT LEG PAIN ARTHRITIS GERD SEVERE NOSE BLEED ALLERGIES LATEX (FOR ALLERGY USE ONLY): DIFFICULTY BREATHING, ITCHING - ALLERGY ENVIRONMENTAL: SINUS CONGESTION, COUGH - ALLERGY SURGICAL HISTORY RIGHT ROTATOR CUFF REPAIR 08/2017, 12/2017 ARTHROSCOPY BILARTERAL KNEES SCREWS LEFT KNEE 2008 CHOLECYSTECTOMY 2009 TEAR DUCT OPENED A BABY LEFT CARPAL TUNNEL REPAIR 2007 TONSILLECTOMY AGE 12 D&C X 4 SOCIAL HISTORY GENERAL: TOBACCO USE ARE YOU A:NONSMOKER LATEX QUESTIONNAIRE LATEX ALLERGY : HAVE YOU EVER DEVELOPED ANY TYPE OF REACTION AFTER HANDLING LATEX PRODUCTS SUCH RUBBER GLOVES, CONDOMS, DIAPHRAGMS, BALLOONS, SOCKS, OR UNDERWEAR?YES - PLEASE INDICATE :RUBBER GLOVES, OTHER (DOCUMENT IN NOTES) LATEX ALLERGY LATEX ALLERGY : HAVE YOU EVER DEVELOPED ANY TYPE OF REACTION DURING OR AFTER DENTAL APPOINTMENT, VAGINAL/RECTAL EXAMINATION, SURGICAL PROCEDURE, OR ANY OTHER EXPOSURE?NO LATEX RISK : HAVE YOU EVER HAD ANY DIFFICULTY BREATHING OR HIVES AFTER EATING OR HANDLING ANY FRUITS, OR VEGETABLES; SUCH KIWI, BANANAS, STONE FRUITS, OR CHESTNUTSNO LATEX RISK : DO YOU HAVE A PREVIOUS PERSONAL HISTORY OF MORE THAN NINE SURGERIES, SPINA BIFIDA, OR REPEATED CATHERIZATIONS? YES - PLEASE INDICATE : > 9 SURGERIES LATEX RISK : ARE YOU FREQUENTLY EXPOSED TO LATEX PRODUCTS IN YOUR OCCUPATION?NO DATE ASKED : 09/22/2020 ALCOHOL USE: NO. ALCOHOL SCREENING DID YOU HAVE A DRINK CONTAINING ALCOHOL IN THE PAST YEAR?YES HOW OFTEN DID YOU HAVE SIX OR MORE DRINKS ON ONE OCCASION IN THE PAST YEAR?NEVER (0 POINTS) HOW MANY DRINKS DID YOU HAVE ON A TYPICAL DAY WHEN YOU WERE DRINKING IN THE PAST YEAR?3 OR 4 (1 POINT) HOW OFTEN DID YOU HAVE A DRINK CONTAINING ALCOHOL IN THE PAST YEAR?MONTHLY OR LESS (1 POINT) POINTS2 INTERPRETATIONNEGATIVE RECREATIONAL DRUG USE DRUG USE?NO [employer] [id number] [employer] LANGUAGE LANGUAGES SPOKEN:TUNISIAN EDUCATION LEVEL OF EDUCATION:HIGH SCHOOL LEARNING BARRIERS / SPECIAL NEEDS CHANGE FROM LAST VISIT?NO BARRIERS TO LEARNING?NO HEARING IMPAIRED?NO VISION IMPAIRED?YES :CORRECTIVE LENSES COGNITIVELY IMPAIRED?NO READINESS TO LEARN?YES LEARNING PREFERENCES?NO LEARNING CAPABILITIES PRESENT?YES EMOTIONAL BARRIERS?NO SPECIAL DEVICES?YES :CANE ONLINE MARKETER NEEDED?NO DOMESTIC VIOLENCE DO YOU FEEL SAFE IN YOUR ENVIRONMENT?YES OCCUPATION: DISABLED. DIET: REGULAR. EXERCISE: NONE. MARITAL STATUS: SINGLE. TODAY'S VISITNOTES PATIENT DESCRIBES PAIN :ACHING, IT COMES AND GOES FROM 0-10, WHAT LEVEL IS YOUR PAIN TODAY?5 - PFS REFERRAL NEEDED?NO CLERGY REFERRAL NEEDED?NO PUBLIC HEALTH REFERRAL NEEDED?NO WAS THE PROVIDER NOTIFIED OF ANY PERTINENT INFO? N/A HAS THE PATIENT BEEN EDUCATED REGARDING HIS/HER PLAN OF CARE?YES HAS THE PATIENT BEEN EDUCATED REGARDING PAIN, THE RISK FOR PAIN, THE IMPORTANCE OF EFFECTIVE PAIN MANAGEMENT, AND THE PAIN ASSESSMENT PROCESS?YES ADVANCE DIRECTIVE ADVANCE DIRECTIVE DISCUSSED WITH PATIENT:YES [id number] KINGSTON [phone] REVIEW OF SYSTEMS CONSTITUTIONAL: ANY RECENT FEVER NO . CHILLS NO . WEIGHT CHANGE OF UNKNOWN REASONS NO . GASTROENTEROLOGY: NEW UNEXPLAINABLE CHANGES IN BOWEL CONTROL NO . CONSTIPATION NO . GENITOURINARY: ANY NEW CHANGE IN BLADDER CONTROL? NO . NEUROLOGY: NEW ONSET DIZZINESS OR NEUROLOGICAL CHANGES NOT MENTIONED NO . NEW NUMBNESS OR PAIN PATTERNS NOT MENTIONED AND PERTINENT TO TODAY'S VISIT NO . CARDIOLOGY: NEW CHEST PRESSURE NO . PATIENT DENIES NO . RESPIRATORY: UNEXPLAINABLE COUGH NO . NEW SHORTNESS OF BREATH NO . VITAL SIGNS WT 217.2 LBS, HT 64 IN, BMI 37.28 INDEX, BP 218/137 MM HG, REPEAT BP 180/90 MANUAL, HR 84 /MIN, RR 18 /MIN, TEMP 97.2 F, OXYGEN SAT % 98% RA, BLOOD GLUCOSE LEVEL N/A, SAFE IN ENV? (Y/N) YES, NA INITIALS MT 1115, REVIEWED BY: EDE CHOI MA. EXAMINATION GENERAL EXAMINATION: GENERALNO ACUTE DISTRESS, WELL NOURISHED AND HYDRATED. PSYCHAPPROPRIATE MOOD AND AFFECT . LUNGS:CLEAR TO AUSCULTATION BILATERALLY, NO WHEEZES, RHONCHI, RALES. HEART:NO MURMURS, REGULAR RATE AND RHYTHM. ASSESSMENTS INTERVERTEBRAL DISC DISORDER WITH RADICULOPATHY OF LUMBAR REGION - M51.16 (PRIMARY) USE OF OPIATES FOR THERAPEUTIC PURPOSES - Z79.891 TREATMENT INTERVERTEBRAL DISC DISORDER WITH RADICULOPATHY OF LUMBAR REGION START BELBUCA FILM, 75 MCG, 1 FILM TO THE GUM, BUCALLY, TWICE DAILY PRN PAIN MDD 2, 30 DAYS, 60 NOTES: 50-YEAR-OLD FEMALE IN FOR CHRONIC PAIN FOLLOW-UP. GIVEN PRESENTING SYMPTOMS RECOMMENDED STARTING BELBUCA 75 MCG 1 FILM EVERY 12 HOURS NEEDED FOR PAIN WITH FOLLOW-UP IN ONE MONTH TO DETERMINE EFFICACY OF TREATMENT. PATIENT HAS TRIALED AND FAILED TRAMADOL, NSAIDS, AND TYLENOL. PATIENT HAS EXPRESSED UNDERSTANDING OF AND WAS IN AGREEMENT WITH TREATMENT PLAN. GIVEN TIME TO ASK QUESTIONS AND EXPRESS CONCERNS. , ISTOP REGISTRY REVIEWED AND DEMONSTRATES COMPLLIANCE. (REF # [id number] ). CLINICAL NOTES: BELBUCA INFORMATION PRINTED AND PROVIDED TO PATIENT. PATIENT VERBALIZED AN UNDERSTANDING. YECENIA CHOI MA. [facility] REASON:DISCUSS BREAST REDUCTION USE OF OPIATES FOR THERAPEUTIC PURPOSES LAB: URINE TEST GROUP YECENIA CHOI 09/22/2020 12:08:04 PM > LAST DOSE: BUSPAR 09/22/2020 AT 0830; HYDRALAZINE 09/22/2020 AT 0830; ALPRAZOLAM 09/22/2020 AT 0830; GABAPENTIN 09/22/2020 AT 0830 PROCEDURE CODES FA211 ESTABILISHED [facility]IENT [facility] CHARGE DISPOSITION & COMMUNICATION FOLLOW UP 4 WEEKS (REASON: NEW MED) ELECTRONICALLY SIGNED BY MIRACLE CAMARENA ON 09/24/2020 AT 08:32 AM EDT DISCLAIMER : THIS IS A VISIT SUMMARY EXTRACTED FROM THE [employer] CHART. IT IS NOT A COPY OF THE [employer] PROGRESS NOTE. MANDY
== END ==
LOC: M PAIN 11:15
PROVIDERS: ATTEND Family Medicine
DX: M51.16 Intervertebral disc disorders with radiculopathy, lumbar region (principal); G89.29 Other chronic pain; G47.33 Obstructive sleep apnea (adult) (pediatric); J45.909 Unspecified asthma, uncomplicated; K21.9 Gastro-esophageal reflux disease without esophagitis; Z86.711 Personal history of pulmonary embolism; Z91.040 Latex allergy status; Z79.82 Long term (current) use of aspirin; Z79.899 Other long term (current) drug therapy

== ENCOUNTER → 2020-10-21 | Outpatient (CLI) | payer OTHER ==
[~2020-10-21] MED LIST changes: +GABA-283 PO; -GABA-845 PO; +OMEP40CA4 PO; -OMEP40CA97 PO
--- NOTE | 2020-10-23 01:56 | ECWPNPC ---
PATIENT NAME: ELISE KINGSTON : 1970 GENDER: FEMALE VISIT DATE: 10/21/2020 DISCHARGE DATE: 10/21/20 1206 VISIT LOCKED DATE TIME: PHYSICIAN: LICHA ARENAS RESOURCE: LICHA ARENAS REASON FOR APPOINTMENT 1. NEW MED HISTORY OF PRESENT ILLNESS PAIN CENTER INTAKE QUESTIONS: DO YOU HAVE A HISTORY OF MRSA? :NO DO YOU TAKE A BLOOD THINNERS? :NO DO YOU HAVE ANY BLEEDING DISORDERS? :NO ANY NEW NUMBNESS OR WEAKNESS IN YOUR LEGS OR ARMS? :YES BILATERAL LEG NUMBNESS. ANY PACEMAKER,DEFIBRILLATOR, OR DORSAL COLUMN STIMULATOR? :NO DO YOU HAVE ANY RASHES OR OPEN SORES? :NO ARE YOU ALLERGIC TO IV DYE? :NO ARE YOU DIABETIC? :NO ANY NEW PROBLEMS WITH YOUR MEDICATIONS? :NO HYDROCODONE RELIEVES THE PAIN FOR AROUND 30 MINUTES. HAVE YOU RECEIVED A VACCINE IN THE PAST 30 DAYS? :YES IF SO WHAT VACCINE AND WHEN? COVID VACCINATION 08/2020. DATE UNKNOWN DO YOU PLAN TO RECEIVE A VACCINE IN THE NEXT 21 DAYS? :YES SECOND COVID VACCINATION DUE 10/05/2020 DO YOU NEED ANY PRESCRIPTION? :NO DO YOU TAKE ANY IMMUNOSUPPRESSIVE MEDICATIONS? :NO IS THERE A CHANCE YOU COULD BE ? :NO ARE YOU BREAST FEEDING? :NO GENERAL: HPI 50-YEAR-OLD FEMALE IN FOR CHRONIC PAIN FOLLOW-UP. SHE WAS STARTED ON HYDROCODONE AT LAST CLINIC VISIT AND SHE ADMITS TODAY THAT THIS HAS BEEN BENEFICIAL HOWEVER SHE DOES EXPERIENCE INCREASED PAIN IN THE MIDDLE OF THE DAY.. -. FALL RISK SCREENING: SCREENING : NO FALLS REPORTED IN THE LAST YEAR. PAIN SCREENING: PATIENT HAS A COMPLAINT OF ACUTE OR CHRONIC PAIN :YES LOCATION OF PAIN:LOW BACK, LEFT HIP, RIGHT HIP INTENSITY OF PAIN (SCALE OF 1 TO 10):9 WHAT DOES YOUR PAIN FEEL LIKE:ACHING, BURNING, CONTINOUS, STABBING DURATION:CONTINOUS, CONSTANT, AWAKENS FROM SLEEP PAIN IS INCREASED BY:ACTIVITIES, PROLONGED STANDING PAIN IS DECREASED BY:OTHERS PATIENT STATES "NOTHING SEEMS TO RELLIEVE THE PAIN." NURSING NOTE: -. CURRENT MEDICATIONS TAKING PRAZOSIN HCL 2 MG CAPSULE 1 CAPSULE AT BEDTIME ORALLY ONCE A DAY TAKING OMEPRAZOLE 40 MG CAPSULE DELAYED RELEASE 1 CAPSULE ORALLY ONCE A DAY TAKING ALPRAZOLAM 0.5 MG TABLET 1 TABLET ORALLY MDD2 TWICE A DAY TAKING ASPIRIN 81 MG TABLET CHEWABLE 1 TABLET ORALLY ONCE A DAY TAKING VITAMIN C 500 MG CAPSULE 1 CAP ORALLY DAILY TAKING VENTOLIN HFA 108 (90 BASE) MCG/ACT AEROSOL SOLUTION 2 PUFFS NEEDED INHALATION EVERY 6 HRS TAKING VITAMIN B-12 500 MCG TABLET 1 TABLET ORALLY ONCE A DAY TAKING SYSTANE 0.4-0.3 % SOLUTION 1 DROP EACH EYE OPHTHALMIC DAILY NEEDED TAKING VALSARTAN 160 MG TABLET 1 TABLET ORALLY TWICE A DAY TAKING BUSPAR 10 MGS 1 TAB ORALLY TWICE DAILY TAKING HYDRALAZINE HCL 50 MG TABLET 1 TABLET WITH FOOD ORALLY THREE TIMES A DAY TAKING ABILIFY 5 MG TABLET 1 TABLET ORALLY ONCE A DAY TAKING RANITIDINE 150 MAX STRENGTH 150 MG TABLET 1 TAB ORALLY TWICE DAILY TAKING HYDROCHLOROTHIAZIDE 12.5 MG CAPSULE 1 CAPSULE IN THE MORNING ORALLY ONCE A DAY TAKING LABETALOL HCL 200 MG TABLET 1 TABLET ORALLY TWICE A DAY TAKING ANT MAG ZINC +D3 - TABLET (NO VIT D) DIRECTED ORALLY DAILY TAKING ARIPIPRAZOLE 10 MG TABLET 1 TABLET ORALLY TWICE A DAY TAKING NORVASC 5 MG TABLET 1 TABLET ORALLY BID NEEDED TAKING NAPROXEN 500 MG TABLET DELAYED RELEASE 1 TABLET ORALLY TWICE A DAY TAKING KLOR-CON 10 10 MEQ TABLET EXTENDED RELEASE 1 TABLET WITH FOOD ORALLY TWICE A DAY TAKING METOPROLOL SUCCINATE ER 100 MG TABLET EXTENDED RELEASE 24 HOUR 1 TABLET ORALLY ONCE A DAY TAKING GABAPENTIN 300 MG CAPSULE 2 TAB IN THE MORNING 1 IN THE AFTERNOON AND 2 AT BEDTIME ORALLY FOR PAIN THREE TIMES A DAY TAKING BACLOFEN 20 MG TABLET 1 TABLET WITH FOOD OR MILK ORALLY THREE TIMES A DAY TAKING HYDROCODONE-ACETAMINOPHEN 5-325 MG TABLET 1 TABLET NEEDED ORALLY EVERY 12 HRS PRN PAIN NOT-TAKING TRAMADOL HCL 50 MG TABLET 1 TABLET NEEDED ORALLY EVERY 4-6 HRS NOT-TAKING LOTEMAX 0.5 % OINTMENT 1 APPLICATION OPHTHALMIC FOUR TIMES DAILY NEEDED MEDICATION LIST REVIEWED AND RECONCILED WITH THE PATIENT PAST MEDICAL HISTORY ANGINA PULMONARY 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 HYPERTENSION DAKOTAH-UNABLE TO TOLERATE CPAP ASTHMA BACK AND LEFT LEG PAIN ARTHRITIS GERD SEVERE NOSE BLEED ALLERGIES LATEX (FOR ALLERGY USE ONLY): DIFFICULTY BREATHING, ITCHING - ALLERGY ENVIRONMENTAL: SINUS CONGESTION, COUGH - ALLERGY SOCIAL HISTORY GENERAL: TOBACCO USE ARE YOU A:NONSMOKER LATEX QUESTIONNAIRE LATEX ALLERGY : HAVE YOU EVER DEVELOPED ANY TYPE OF REACTION AFTER HANDLING LATEX PRODUCTS SUCH RUBBER GLOVES, CONDOMS, DIAPHRAGMS, BALLOONS, SOCKS, OR UNDERWEAR?YES - PLEASE INDICATE :RUBBER GLOVES, OTHER (DOCUMENT IN NOTES) LATEX ALLERGY LATEX ALLERGY : HAVE YOU EVER DEVELOPED ANY TYPE OF REACTION DURING OR AFTER DENTAL APPOINTMENT, VAGINAL/RECTAL EXAMINATION, SURGICAL PROCEDURE, OR ANY OTHER EXPOSURE?NO LATEX RISK : HAVE YOU EVER HAD ANY DIFFICULTY BREATHING OR HIVES AFTER EATING OR HANDLING ANY FRUITS, OR VEGETABLES; SUCH KIWI, BANANAS, STONE FRUITS, OR CHESTNUTSNO LATEX RISK : DO YOU HAVE A PREVIOUS PERSONAL HISTORY OF MORE THAN NINE SURGERIES, SPINA BIFIDA, OR REPEATED CATHERIZATIONS? YES - PLEASE INDICATE : > 9 SURGERIES LATEX RISK : ARE YOU FREQUENTLY EXPOSED TO LATEX PRODUCTS IN YOUR OCCUPATION?NO DATE ASKED : 10/21/2020 ALCOHOL USE: NO. ALCOHOL SCREENING DID YOU HAVE A DRINK CONTAINING ALCOHOL IN THE PAST YEAR?YES HOW OFTEN DID YOU HAVE SIX OR MORE DRINKS ON ONE OCCASION IN THE PAST YEAR?NEVER (0 POINTS) HOW MANY DRINKS DID YOU HAVE ON A TYPICAL DAY WHEN YOU WERE DRINKING IN THE PAST YEAR?3 OR 4 (1 POINT) HOW OFTEN DID YOU HAVE A DRINK CONTAINING ALCOHOL IN THE PAST YEAR?MONTHLY OR LESS (1 POINT) POINTS2 INTERPRETATIONNEGATIVE RECREATIONAL DRUG USE DRUG USE?NO ISLAM [id number] ANGLICAN LANGUAGE LANGUAGES SPOKEN:INDONESIAN EDUCATION LEVEL OF EDUCATION:HIGH SCHOOL LEARNING BARRIERS / SPECIAL NEEDS CHANGE FROM LAST VISIT?NO BARRIERS TO LEARNING?NO HEARING IMPAIRED?NO VISION IMPAIRED?YES :CORRECTIVE LENSES COGNITIVELY IMPAIRED?NO READINESS TO LEARN?YES LEARNING PREFERENCES?NO LEARNING CAPABILITIES PRESENT?YES EMOTIONAL BARRIERS?NO SPECIAL DEVICES?YES :CANE SCHOOL COOK NEEDED?NO DOMESTIC VIOLENCE DO YOU FEEL SAFE IN YOUR ENVIRONMENT?YES OCCUPATION: DISABLED. DIET: REGULAR. EXERCISE: NONE. MARITAL STATUS: SINGLE. TODAY'S VISITNOTES PATIENT DESCRIBES PAIN :ACHING, IT COMES AND GOES FROM 0-10, WHAT LEVEL IS YOUR PAIN TODAY?5 - PFS REFERRAL NEEDED?NO CLERGY REFERRAL NEEDED?NO PUBLIC HEALTH REFERRAL NEEDED?NO WAS THE PROVIDER NOTIFIED OF ANY PERTINENT INFO? N/A HAS THE PATIENT BEEN EDUCATED REGARDING HIS/HER PLAN OF CARE?YES HAS THE PATIENT BEEN EDUCATED REGARDING PAIN, THE RISK FOR PAIN, THE IMPORTANCE OF EFFECTIVE PAIN MANAGEMENT, AND THE PAIN ASSESSMENT PROCESS?YES ADVANCE DIRECTIVE ADVANCE DIRECTIVE DISCUSSED WITH PATIENT:YES [id number] ALittle KINGSTON [phone] REVIEW OF SYSTEMS CONSTITUTIONAL: ANY RECENT FEVER NO . CHILLS NO . WEIGHT CHANGE OF UNKNOWN REASONS NO . GASTROENTEROLOGY: NEW UNEXPLAINABLE CHANGES IN BOWEL CONTROL NO . CONSTIPATION NO . GENITOURINARY: ANY NEW CHANGE IN BLADDER CONTROL? NO . NEUROLOGY: NEW ONSET DIZZINESS OR NEUROLOGICAL CHANGES NOT MENTIONED NO . NEW NUMBNESS OR PAIN PATTERNS NOT MENTIONED AND PERTINENT TO TODAY'S VISIT NO . CARDIOLOGY: NEW CHEST PRESSURE NO . PATIENT DENIES NO . RESPIRATORY: UNEXPLAINABLE COUGH NO . NEW SHORTNESS OF BREATH NO . VITAL SIGNS WT 217.4 LBS, HT 64 IN, BMI 37.31 INDEX, BP 142/88 MANUAL, HR 74 /MIN, RR 18 /MIN, TEMP 98.7 F, OXYGEN SAT % 96%, SAFE IN ENV? (Y/N) YES, REVIEWED BY: EDE CHOI MA. EXAMINATION GENERAL EXAMINATION: GENERALNO ACUTE DISTRESS, WELL NOURISHED AND HYDRATED. PSYCHAPPROPRIATE MOOD AND AFFECT . LUNGS:CLEAR TO AUSCULTATION BILATERALLY, NO WHEEZES, RHONCHI, RALES. HEART:NO MURMURS, REGULAR RATE AND RHYTHM. ASSESSMENTS INTERVERTEBRAL DISC DISORDER WITH RADICULOPATHY OF LUMBAR REGION - M51.16 (PRIMARY), RISK: (NULL) TREATMENT INTERVERTEBRAL DISC DISORDER WITH RADICULOPATHY OF LUMBAR REGION INCREASE HYDROCODONE-ACETAMINOPHEN TABLET, 5-325 MG, 1 TABLET NEEDED, ORALLY, EVERY 8 HRS PRN PAIN, 30 DAYS, 90 NOTES: 50-YEAR-OLD FEMALE IN FOR CHRONIC PAIN FOLLOW-UP. DISCUSSED HYDROCODONE WITH PATIENT AND IT WAS DECIDED THAT WE WOULD TRIAL 3 TIMES A DAY DOSING WITH FOLLOW-UP IN ONE MONTH TO DETERMINE EFFICACY TREATMENT. PATIENT HAS EXPRESSED UNDERSTANDING OF AND WAS IN AGREEMENT WITH TREATMENT PLAN. GIVEN TIME TO ASK QUESTIONS AND EXPRESS CONCERNS. ISTOP REGISTRY REVIEWED AND DEMONSTRATES COMPLLIANCE. (REF # [id number] ) BRINGS IN MEDICATIONS WHICH IS APPROPRIATE FOR WHAT WAS DISPENSED. RECENT URINE TOXICOLOGY REVIEWED. NO UNAUTHORIZED MEDICATIONS. NO ILLICIT SUBSTANCES AND PRESCRIBED MEDICATIONS WERE PRESENT. PROCEDURE CODES FA211 ESTABILISHED PATIENT [facility] FACILITY CHARGE DISPOSITION & COMMUNICATION FOLLOW UP 4 WEEKS (REASON: MEDICATION INCREASE ) ELECTRONICALLY SIGNED BY MIRACLE CAMARENA ON 10/22/2020 AT 01:28 PM EDT DISCLAIMER : THIS IS A VISIT SUMMARY EXTRACTED FROM THE [employer] CHART. IT IS NOT A COPY OF THE [employer] PROGRESS NOTE. MANDY
== END ==
LOC: M PAIN 11:30
PROVIDERS: ATTEND Family Medicine
DX: M51.16 Intervertebral disc disorders with radiculopathy, lumbar region (principal); G89.29 Other chronic pain; G47.33 Obstructive sleep apnea (adult) (pediatric); J45.909 Unspecified asthma, uncomplicated; K21.9 Gastro-esophageal reflux disease without esophagitis; Z86.711 Personal history of pulmonary embolism; Z91.040 Latex allergy status; Z79.82 Long term (current) use of aspirin; Z79.899 Other long term (current) drug therapy

== ENCOUNTER → 2020-11-28 | Outpatient (CLI) | payer OTHER ==
--- NOTE | 2020-12-02 00:26 | ECWPNPC ---
PATIENT NAME: ELISE KINGSTON : 1970 GENDER: FEMALE VISIT DATE: 11/28/2020 DISCHARGE DATE: 11/28/20 1512 VISIT LOCKED DATE TIME: PHYSICIAN: LICHA ARENAS RESOURCE: LICHA ARENAS REASON FOR APPOINTMENT 1. MEDICATION INCREASE HISTORY OF PRESENT ILLNESS GENERAL: HPI 50-YEAR-OLD FEMALE IN FOR CHRONIC PAIN FOLLOW-UP. AT LAST CLINIC VISIT PATIENT'S HYDROCODONE WAS INCREASED AND SHE ADMITS TODAY THAT THIS WAS BENEFICIAL. SHE RATES HER PAIN CURRENTLY AT A 7 OUT OF 10 AND DESCRIBES IT BURNING AND CONTINUOUS. . -. FALL RISK SCREENING: SCREENING : NO FALLS REPORTED IN THE LAST YEAR. PAIN SCREENING: PATIENT HAS A COMPLAINT OF ACUTE OR CHRONIC PAIN :YES LOCATION OF PAIN:LOW BACK, LEG(S) LEFT INTENSITY OF PAIN (SCALE OF 1 TO 10):7 WHAT DOES YOUR PAIN FEEL LIKE:BURNING, CONTINOUS DURATION:CONTINOUS PAIN IS INCREASED BY:ACTIVITIES PAIN IS DECREASED BY:OTHERS NOTHING HELPS PAIN RIGHT NOW NURSING NOTE: -. PAIN CENTER INTAKE QUESTIONS: DO YOU HAVE A HISTORY OF MRSA? :NO DO YOU TAKE A BLOOD THINNERS? :NO DO YOU HAVE ANY BLEEDING DISORDERS? :NO ANY NEW NUMBNESS OR WEAKNESS IN YOUR LEGS OR ARMS? :NO ANY PACEMAKER,DEFIBRILLATOR, OR DORSAL COLUMN STIMULATOR? :NO DO YOU HAVE ANY RASHES OR OPEN SORES? :NO ARE YOU ALLERGIC TO IV DYE? :NO ARE YOU DIABETIC? :NO ANY NEW PROBLEMS WITH YOUR MEDICATIONS? :NO HAVE YOU RECEIVED A VACCINE IN THE PAST 30 DAYS? :YES IF SO WHAT VACCINE AND WHEN? 2 ND COVID SHOT 11/06/2020 DO YOU PLAN TO RECEIVE A VACCINE IN THE NEXT 21 DAYS? :NO DO YOU NEED ANY PRESCRIPTION? :YES HYDROCODONE DO YOU TAKE ANY IMMUNOSUPPRESSIVE MEDICATIONS? :NO DO YOU HAVE ANY KIDNEY OR LIVER DISEASE? :NO IS THERE A CHANCE YOU COULD BE ? :NO ARE YOU BREAST FEEDING? :NO CURRENT MEDICATIONS TAKING PRAZOSIN HCL 2 MG CAPSULE 1 CAPSULE AT BEDTIME ORALLY ONCE A DAY TAKING OMEPRAZOLE 40 MG CAPSULE DELAYED RELEASE 1 CAPSULE ORALLY ONCE A DAY TAKING ALPRAZOLAM 0.5 MG TABLET 1 TABLET ORALLY MDD2 TWICE A DAY TAKING ASPIRIN 81 MG TABLET CHEWABLE 1 TABLET ORALLY ONCE A DAY TAKING VITAMIN C 500 MG CAPSULE 1 CAP ORALLY DAILY TAKING VENTOLIN HFA 108 (90 BASE) MCG/ACT AEROSOL SOLUTION 2 PUFFS NEEDED INHALATION EVERY 6 HRS TAKING VITAMIN B-12 500 MCG TABLET 1 TABLET ORALLY ONCE A DAY TAKING SYSTANE 0.4-0.3 % SOLUTION 1 DROP EACH EYE OPHTHALMIC DAILY NEEDED TAKING VALSARTAN 160 MG TABLET 1 TABLET ORALLY TWICE A DAY TAKING BUSPAR 10 MGS 1 TAB ORALLY TWICE DAILY TAKING HYDRALAZINE HCL 50 MG TABLET 1 TABLET WITH FOOD ORALLY THREE TIMES A DAY TAKING ABILIFY 5 MG TABLET 1 TABLET ORALLY ONCE A DAY TAKING RANITIDINE 150 MAX STRENGTH 150 MG TABLET 1 TAB ORALLY TWICE DAILY TAKING HYDROCHLOROTHIAZIDE 12.5 MG CAPSULE 1 CAPSULE IN THE MORNING ORALLY ONCE A DAY TAKING LABETALOL HCL 200 MG TABLET 1 TABLET ORALLY TWICE A DAY TAKING ANT MAG ZINC +D3 - TABLET (NO VIT D) DIRECTED ORALLY DAILY TAKING ARIPIPRAZOLE 10 MG TABLET 1 TABLET ORALLY TWICE A DAY TAKING NORVASC 5 MG TABLET 1 TABLET ORALLY BID NEEDED TAKING NAPROXEN 500 MG TABLET DELAYED RELEASE 1 TABLET ORALLY TWICE A DAY TAKING KLOR-CON 10 10 MEQ TABLET EXTENDED RELEASE 1 TABLET WITH FOOD ORALLY TWICE A DAY TAKING METOPROLOL SUCCINATE ER 100 MG TABLET EXTENDED RELEASE 24 HOUR 1 TABLET ORALLY ONCE A DAY TAKING GABAPENTIN 300 MG CAPSULE 2 TAB IN THE MORNING 1 IN THE AFTERNOON AND 2 AT BEDTIME ORALLY FOR PAIN THREE TIMES A DAY TAKING BACLOFEN 20 MG TABLET 1 TABLET WITH FOOD OR MILK ORALLY THREE TIMES A DAY TAKING HYDROCODONE-ACETAMINOPHEN 5-325 MG TABLET 1 TABLET NEEDED ORALLY EVERY 8 HRS PRN PAIN NOT-TAKING TRAMADOL HCL 50 MG TABLET 1 TABLET NEEDED ORALLY EVERY 4-6 HRS NOT-TAKING LOTEMAX 0.5 % OINTMENT 1 APPLICATION OPHTHALMIC FOUR TIMES DAILY NEEDED MEDICATION LIST REVIEWED AND RECONCILED WITH THE PATIENT PAST MEDICAL HISTORY ANGINA PULMONARY 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 HYPERTENSION DAKOTAH-UNABLE TO TOLERATE CPAP ASTHMA BACK AND LEFT LEG PAIN ARTHRITIS GERD SEVERE NOSE BLEED ALLERGIES LATEX (FOR ALLERGY USE ONLY): DIFFICULTY BREATHING, ITCHING - ALLERGY ENVIRONMENTAL: SINUS CONGESTION, COUGH - ALLERGY SOCIAL HISTORY GENERAL: TOBACCO USE ARE YOU A:NONSMOKER LATEX QUESTIONNAIRE LATEX ALLERGY : HAVE YOU EVER DEVELOPED ANY TYPE OF REACTION AFTER HANDLING LATEX PRODUCTS SUCH RUBBER GLOVES, CONDOMS, DIAPHRAGMS, BALLOONS, SOCKS, OR UNDERWEAR?YES - PLEASE INDICATE :RUBBER GLOVES, OTHER (DOCUMENT IN NOTES) LATEX ALLERGY LATEX ALLERGY : HAVE YOU EVER DEVELOPED ANY TYPE OF REACTION DURING OR AFTER DENTAL APPOINTMENT, VAGINAL/RECTAL EXAMINATION, SURGICAL PROCEDURE, OR ANY OTHER EXPOSURE?NO LATEX RISK : HAVE YOU EVER HAD ANY DIFFICULTY BREATHING OR HIVES AFTER EATING OR HANDLING ANY FRUITS, OR VEGETABLES; SUCH KIWI, BANANAS, STONE FRUITS, OR CHESTNUTSNO LATEX RISK : DO YOU HAVE A PREVIOUS PERSONAL HISTORY OF MORE THAN NINE SURGERIES, SPINA BIFIDA, OR REPEATED CATHERIZATIONS? YES - PLEASE INDICATE : > 9 SURGERIES LATEX RISK : ARE YOU FREQUENTLY EXPOSED TO LATEX PRODUCTS IN YOUR OCCUPATION?NO DATE ASKED : 11/28/2020 ALCOHOL USE: NO. ALCOHOL SCREENING DID YOU HAVE A DRINK CONTAINING ALCOHOL IN THE PAST YEAR?YES HOW OFTEN DID YOU HAVE SIX OR MORE DRINKS ON ONE OCCASION IN THE PAST YEAR?NEVER (0 POINTS) HOW MANY DRINKS DID YOU HAVE ON A TYPICAL DAY WHEN YOU WERE DRINKING IN THE PAST YEAR?3 OR 4 (1 POINT) HOW OFTEN DID YOU HAVE A DRINK CONTAINING ALCOHOL IN THE PAST YEAR?MONTHLY OR LESS (1 POINT) POINTS2 INTERPRETATIONNEGATIVE RECREATIONAL DRUG USE DRUG USE?NO HOLINESS [id number] TENRIISM LANGUAGE LANGUAGES SPOKEN:[place] EDUCATION LEVEL OF EDUCATION:HIGH SCHOOL LEARNING BARRIERS / SPECIAL NEEDS CHANGE FROM LAST VISIT?NO BARRIERS TO LEARNING?NO HEARING IMPAIRED?NO VISION IMPAIRED?YES COGNITIVELY IMPAIRED?NO :CORRECTIVE LENSES READINESS TO LEARN?YES LEARNING PREFERENCES?NO LEARNING CAPABILITIES PRESENT?YES EMOTIONAL BARRIERS?NO SPECIAL DEVICES?YES :[employer] SOC[employer] WORKER HEALTH SERVICES NEEDED?NO DOMESTIC VIOLENCE DO YOU FEEL SAFE IN YOUR ENVIRONMENT?YES OCCUPATION: DISABLED. DIET: REGULAR. EXERCISE: NONE. MARITAL STATUS: SINGLE. TODAY'S VISITNOTES PATIENT DESCRIBES PAIN :ACHING, IT COMES AND GOES FROM 0-10, WHAT LEVEL IS YOUR PAIN TODAY?5 - PFS REFERRAL NEEDED?NO CLERGY REFERRAL NEEDED?NO PUBLIC HEALTH REFERRAL NEEDED?NO WAS THE PROVIDER NOTIFIED OF ANY PERTINENT INFO? N/A HAS THE PATIENT BEEN EDUCATED REGARDING HIS/HER PLAN OF CARE?YES HAS THE PATIENT BEEN EDUCATED REGARDING PAIN, THE RISK FOR PAIN, THE IMPORTANCE OF EFFECTIVE PAIN MANAGEMENT, AND THE PAIN ASSESSMENT PROCESS?YES ADVANCE DIRECTIVE ADVANCE DIRECTIVE DISCUSSED WITH PATIENT:YES [id number] A. TAYLOR [phone] REVIEW OF SYSTEMS CONSTITUTIONAL: ANY RECENT FEVER NO . CHILLS NO . WEIGHT CHANGE OF UNKNOWN REASONS NO . GASTROENTEROLOGY: NEW UNEXPLAINABLE CHANGES IN BOWEL CONTROL NO . CONSTIPATION NO . GENITOURINARY: ANY NEW CHANGE IN BLADDER CONTROL? NO . NEUROLOGY: NEW ONSET DIZZINESS OR NEUROLOGICAL CHANGES NOT MENTIONED NO . NEW NUMBNESS OR PAIN PATTERNS NOT MENTIONED AND PERTINENT TO TODAY'S VISIT NO . CARDIOLOGY: NEW CHEST PRESSURE NO . PATIENT DENIES NO . RESPIRATORY: UNEXPLAINABLE COUGH NO . NEW SHORTNESS OF BREATH NO . VITAL SIGNS WT 217.0 LBS, HT 64 IN, BMI 37.24 INDEX, BP 140/80 MM HG, HR 88 /MIN, RR 18 /MIN, TEMP 96.7 F, OXYGEN SAT % 96%, SAFE IN ENV? (Y/N) YES, NA INITIALS AW 1452, REVIEWED BY: Bo DANIELLE RN. EXAMINATION GENERAL EXAMINATION: GENERALNO ACUTE DISTRESS, WELL NOURISHED AND HYDRATED. PSYCHAPPROPRIATE MOOD AND AFFECT . LUNGS:CLEAR TO AUSCULTATION BILATERALLY, NO WHEEZES, RHONCHI, RALES. HEART:NO MURMURS, REGULAR RATE AND RHYTHM. ASSESSMENTS INTERVERTEBRAL DISC DISORDER WITH RADICULOPATHY OF LUMBAR REGION - M51.16 (PRIMARY), RISK: (NULL) TREATMENT INTERVERTEBRAL DISC DISORDER WITH RADICULOPATHY OF LUMBAR REGION REFILL HYDROCODONE-ACETAMINOPHEN TABLET, 5-325 MG, 1 TABLET NEEDED, ORALLY, EVERY 8 HRS PRN PAIN, 30 DAY(S), 90 NOTES: 50-YEAR-OLD FEMALE IN FOR CHRONIC PAIN FOLLOW-UP. GIVEN PRESENTING SYMPTOMS RECOMMEND CONTINUATION OF CURRENT MEDICATION REGIMEN WITH FOLLOW-UP IN 3 MONTHS. PATIENT HAS EXPRESSED UNDERSTANDING OF AND WAS IN AGREEMENT WITH TREATMENT PLAN. GIVEN TIME TO ASK QUESTIONS AND EXPRESS CONCERNS. [employer] REGISTRY REVIEWED AND DEMONSTRATES COMPLLIANCE. (REF # [id number] ) BRINGS IN MEDICATIONS WHICH IS APPROPRIATE FOR WHAT WAS DISPENSED. RECENT URINE TOXICOLOGY REVIEWED. NO UNAUTHORIZED MEDICATIONS. NO ILLICIT SUBSTANCES AND PRESCRIBED MEDICATIONS WERE PRESENT. PROCEDURE CODES [id number] ESTABILISHED PATIENT [facility] FACILITY CHARGE DISPOSITION & COMMUNICATION FOLLOW UP 3 MONTHS (REASON: LOW BACK PAIN ) ELECTRONICALLY SIGNED BY MIRACLE CAMARENA ON 12/01/2020 AT 01:18 PM EDT DISCLAIMER : THIS IS A VISIT SUMMARY EXTRACTED FROM THE [email or web address] CHART. IT IS NOT A COPY OF THE [email or web address] PROGRESS NOTE. MANDY
== END ==
LOC: M PAIN 14:45
PROVIDERS: ATTEND Family Medicine
DX: M51.16 Intervertebral disc disorders with radiculopathy, lumbar region (principal); G89.29 Other chronic pain; G47.33 Obstructive sleep apnea (adult) (pediatric); J45.909 Unspecified asthma, uncomplicated; K21.9 Gastro-esophageal reflux disease without esophagitis; Z91.040 Latex allergy status; Z86.711 Personal history of pulmonary embolism; Z79.82 Long term (current) use of aspirin; Z79.899 Other long term (current) drug therapy

== ENCOUNTER → 2021-06-22 | Outpatient (CLI) | payer OTHER | LOC: M PAIN 10:00 | PROVIDERS: ATTEND Nurse Practitioner Family | DX: M51.16 Intervertebral disc disorders with radiculopathy, lumbar region (principal); G89.29 Other chronic pain; G47.33 Obstructive sleep apnea (adult) (pediatric); J45.909 Unspecified asthma, uncomplicated; K21.9 Gastro-esophageal reflux disease without esophagitis; Z86.711 Personal history of pulmonary embolism; Z91.040 Latex allergy status; Z79.82 Long term (current) use of aspirin; Z79.899 Other long term (current) drug therapy ==

== ENCOUNTER → 2021-08-11 | Outpatient (CLI) | payer OTHER | LOC: MERGE 07-20 09:45 → M PLAIMG 14:01 | PROVIDERS: ATTEND Nurse Practitioner Family | DX: M51.16 Intervertebral disc disorders with radiculopathy, lumbar region (principal) ==

== ENCOUNTER → 2021-12-17 | Outpatient (CLI) | payer OTHER ==
[~2021-12-17] MED LIST changes: -LABE100T4 PO; +LABE100T6 PO
== END ==
LOC: M PAIN 11:30
PROVIDERS: ATTEND Nurse Practitioner Family
DX: M51.16 Intervertebral disc disorders with radiculopathy, lumbar region (principal); G89.29 Other chronic pain; G47.33 Obstructive sleep apnea (adult) (pediatric); J45.909 Unspecified asthma, uncomplicated; K21.9 Gastro-esophageal reflux disease without esophagitis; Z86.711 Personal history of pulmonary embolism; Z91.040 Latex allergy status; Z79.82 Long term (current) use of aspirin; Z79.899 Other long term (current) drug therapy